=== PATIENT | female | born 1955 | race African-American/Black ===

== ENCOUNTER 2016-10-16 10:55 | Inpatient (IN) | payer MEDICAID ==
[2016-10-16 11:09] VITALS: BMI 27.2
[2016-10-16] MEDS ORDERED: CARDIZEM INJ 50 MG VIAL ONE (11:14)
[2016-10-16] MEDS ORDERED: NS 1000 ML 1,000 ML ONE (11:14)
--- NOTE | 2016-10-16 11:15 | DR.GENAD ---
HPI - PCP Primary Care Physician: lacy - HPI Comment HPI Comment: WHILE PATIENT WAS WASHING HER CAR, SHE FELT LIKE SHE WAS GOING TO PASS OUT. SHE IS CURRENTLY DIZZY. PATIENT DENIES CHEST PAIN. IN ED, HR RAPID. A FIB ON MONITOR WITH RVR. - Complaint/Symptoms Chief Complaint Doctors Comments: DIZZINESS AND NEAR SYNCOPAL EPISODE. Chief Complaint:: patient stated she was washing her car this morning and got to hot - Nurses notes reviewed Nurses Notes Review: Yes - Source History Provided: Patient - Mode of Arrival Mode of Arrival: Ambulatory - Timing Onset of Chief Complaint: 10/16/16 Came on: Suddenly - Duration Duration: Constant Duration: Minutes - Severity Severity: Moderate PMH - PMH Past Medical History: Yes Past Medical History: Arthritis, Diabetes, Hypertension Past Surgical History: No - Family History History of Family Medical Conditions: Yes Family Medical History: Diabetes Mellitus, Hypertension - Social History Does patient currently use any type of tobacco product: No Have you used tobacco products in the last 12 months: No Type of Tobacco Use: None Does any household member use tobacco: No Alcohol Use: None Do you use any recreational Drugs:: No Lives With: Family Lives Where: Home - infectious screening In the last 2 months have you had wt loss of >10#?: NO Have you had fever, night sweats or hemotysis?: No Have you traveled outside the country in the last 6 months?: No Isolation: Standard ROS - Review of Systems Constitutional: Weakness, Fatigue. negative: Chills, Fever Eyes: No Symptoms Reported. negative: Eye Pain, Blurred Vision, Discharge ENTM: No Symptoms Reported. negative: Ear Pain, Nose Discharge, Nose Congestion , Throat Pain Respiratoy: Short of Breath. negative: Productive Cough, Non-Productive Cough, Wheezing, Hemoptysis Cardiovascular: Palpitations, Syncope Gastrointestinal/Abdominal: No Symptoms Reported. negative: Abdominal Pain, Diarrhea, Nausea, Vomiting Genitourinary: No Symptoms Reported. negative: Dysuria, Frequency, Hematuria Neurological: Weakness, Dizziness. negative: Headache Musculoskeletal: No Symptoms Reported Integumentary: No Symptoms Reported Hematologic/Lymphatic: No Symptoms Reported Endocrine: No Symptoms Reported All Other Systems: Reviewed and Negative PE - Vital Signs Vitals: Temperature 98.3 F Pulse Rate 154 Respiratory Rate 18 Blood Pressure [Left Arm] 196/101 Blood Pressure 125/67 O2 Sat by Pulse Oximetry 100 - General Limitations: No Limitations General Appearance: Alert - Head Head Exam: Normal Inspection - Eyes Eye exam: Normal Appearance - ENT ENT Exam: Normal External Ear Exam External Ear Exam: Normal External Inspection TM/Canal Exam: Bilateral Normal Nose Exam: Normal Nose Exam Mouth Exam: Normal Inspection Throat Exam: Normal Inspection - Neck Neck Exam: Trachea Midline. negative: Tenderness, Meningismus, Lymphadenopathy - Chest Chest Inspection: Symmetric Chest Wall Rise - Respiratory Respiratory Exam: Normal Lung Sounds Bilat Respiratory Exam: Bilateral Clear to Auscultation - Cardiovascular Cardiovascular Exam: Tachycardia, Irregular Rhythm - Abdominal Exam Abdominal Exam: Normal Bowel Sounds, Soft. negative: Tenderness - Extremities Extremities Exam: Normal Inspection - Back Back Exam: Normal Inspection - Neurologic Neurological Exam: Alert, Oriented X3, CN II-XII Intact, Reflexes Normal. negative: Motor Sensory Deficit - Psychiatric Psychiatric Exam: Anxious - Skin Skin Exam: Normal Color MDM - Differential Diagnosis Differential Diagnosis: A FIB, IN, DM/HYPOGLYCEMIA Course - Treatment Treatment: SEE ORDERS. IV BOLUS CARDIOZEM FOLLOW WITH IV DRIP. - Reevaluation 1st: Improved (HR IMPROVE. SINUS TACHYCARDIA.) - Consultation Consultation Comments: DISCUSS PATIENT WITH DR. LEAL. HE WILL ADMIT PATIENT. - Education/Counseling Education/Counseling: Patient, Education Educated On: Treatment, Diagnosis ROR - Labs Reviewed Laboratory Results Reviewed?: Yes Result Diagrams: 10/16/16 11:33 10/16/16 11:33 - XRAY XRAY Interpreted by: Radiologist XRAY Findings: REPORT DISCUSS WITH PATIENT. - EKG Rhythm: Afib (WITH RVR. NOTED ON EKG.) - Diagnosis Discharge Problem: Atrial fibrillation with rapid ventricular response, New onset a-fib, Dizziness - Discharge Plan Disposition: 01 HOME, SELF-CARE Condition: Stable - Follow ups/Referrals - Instructions
[2016-10-16] MEDS ORDERED: NS 100 ML IV 100 ML IV ONE (11:21)
[2016-10-16] MEDS ORDERED: CARDIZEM INJ 125 MG VIAL ONE (11:22)
[2016-10-16] MEDS ORDERED: CARDIZEM INJ 50 MG VIAL IVP ONE (11:34)
[2016-10-16] MEDS ORDERED: CARDIZEM INJ 125 MG VIAL 125 MG in NS 100 ML IV 100 ML IV PRN (11:34)
[2016-10-16 11:54] LABS: BASOPHILS % (AUTO) 0.9 % (0.2-1.0); EOSINOPHILS # (AUTO) 0.1 x10^3/uL (0.0-0.2); EOSINOPHILS % (AUTO) 2.8 % (0.9-2.9); HEMATOCRIT 32.1 % (36.0-47.0); HEMOGLOBIN 10.4 g/dL (12.0-16.0); LYMPHOCYTES # (AUTO) 1.4 X10^3/uL (1.3-2.9); LYMPHOCYTES % (AUTO) 36.5 % (21.0-51.0); MEAN CORPUSCULAR HEMOGLOBIN 22.7 pg (27.0-34.0); MEAN CORPUSCULAR HGB CONC 32.3 g/dL (33.0-35.0); MEAN CORPUSCULAR VOLUME 70.2 fL (80.0-100.0); MEAN PLATELET VOLUME 7.4 fL (7.4-11.0); MONOCYTES # (AUTO) 0.4 x10^3/uL (0.3-0.8); MONOCYTES % (AUTO) 10.7 % (0.0-13.0); NEUTROPHILS # (AUTO) 1.9 x10^3/uL (2.2-4.8); NEUTROPHILS % (AUTO) 49.1 % (42.0-75.0); PLATELET COUNT 319 X10^3/uL (150.0-450.0); RED BLOOD COUNT 4.57 X10^6/uL (3.5-5.4)
[2016-10-16 12:12] LABS: BLOOD UREA NITROGEN 21 mg/dL (7-18); CALCIUM 9.9 mg/dL (8.5-10.1); CARBON DIOXIDE 25.2 mmol/L (21-32); CHLORIDE 102 mmol/L (98-107); COR NA(FOR HYPERGLY) 144 mmol/L (136-145); CREATININE 1.27 mg/dL (0.55-1.02); GLUCOSE 187 mg/dL (65-99); SODIUM 142 mmol/L (136-145); TROPONIN I < 0.02 ng/mL (0-1.5); eGFR BLACK RACES 55 (>60); eGFR NON BLACK RACES 45 (>60)
[2016-10-16 12:13] LABS: HYPOCHROMASIA SLIGHT; PLATELET MORPHOLOGY COMMENT NORMAL (NORMAL)
[2016-10-16 12:14] LABS: MICROCYTOSIS 2+
[2016-10-16 12:16] LABS: ALANINE AMINOTRANSFERASE 22 Units/L (12-78); ALBUMIN 3.4 g/dL (3.4-5.0); ALKALINE PHOSPHATASE 65 Units/L (46-116); ASPARTATE AMINO TRANSFERASE 22 Units/L (15-37); CKMB % 0.9 % (<4); CREATINE KINASE 170 Units/L (26-192); CREATINE KINASE MB 1.6 ng/mL (0-4.0); TOTAL PROTEIN 7.7 g/dL (6.4-8.2)
[2016-10-16 12:20] LABS: B-TYPE NATRIURETIC PEPTIDE 126 pg/mL (0-79)
--- NOTE | 2016-10-16 12:28 | RAD ---
HISTORY: Chest pain Study: Chest one view Comparison: April 26, 2015 Findings: There is a leftward deviation of the upper trachea and prominence of the right paratracheal soft tis sues. This is likely due to substernal thyroid and is unchanged from the prior examination. The card iac silhouette is unremarkable. The lungs are clear without focal infiltrate or effusion. The bony thorax is unremarkable. IMPRESSION: 1. No acute cardiopulmonary disease. 2. Leftward deviation of the upper trachea likely by an enlarged thyroid gland. This is a stable fin ding. Reported By:
[2016-10-16] MEDS ORDERED: KAYEXALATE PO ONE (13:40)
[2016-10-16] MEDS ORDERED: CORDARONE INJ 150 MG VIAL IVP ONE (15:33)
[2016-10-16] MEDS ORDERED: HEPARIN SODIUM IN D5W 25,000 UNITS/500 ML BAG IV PRN (15:34)
[2016-10-16] MEDS ORDERED: NEXTERONE IV 360 MG PREMIX* 200 ML IV PRN (15:34)
[2016-10-16] MEDS ORDERED: HEPARIN SODIUM INJ 5000 UNITS ONE (15:52)
[2016-10-16] MEDS ORDERED: HEPARIN SODIUM INJ 5000 UNITS IVP ONE (16:09)
[2016-10-16] MEDS: NEXTERONE IV 360 MG PREMIX* 200 ML IV PRN ×2 (16:30→21:47)
[2016-10-16] MEDS ORDERED: NEXTERONE IV 150 MG PREMIX* 100 ML IV SCH (17:00)
[2016-10-16] MEDS: NORCO 10/325 TAB PO SCH ×2 (17:43→21:46)
[2016-10-16 18:05] LABS: CKMB % 0.8 % (<4); CREATINE KINASE MB 1.3 ng/mL (0-4.0); TROPONIN I 0.12 ng/mL (0-1.5)
[2016-10-16] MEDS ORDERED: GLUCOPHAGE ONE (20:45)
[2016-10-16] MEDS: HumuLIN R SUBCUT PRN (20:57)
[2016-10-16] MEDS: GLUCOPHAGE PO SCH (20:57)
[2016-10-16] MEDS: FIORICET TAB PO PRN (20:57)
[2016-10-16] MEDS: SNACK - Diabetic Appropriate PO SCH (20:59)
[2016-10-16] MEDS: CARDIZEM SR 60 MG PO SCH (21:46)
[2016-10-16 22:16] LABS: BILIRUBIN,URINE NEGATIVE (NEGATIVE); BLOOD/HEMOGLOBIN,URINE NEGATIVE (NEGATIVE); GLUCOSE, URINE NEGATIVE (NEGATIVE); KETONES,URINE NEGATIVE (NEGATIVE); LEUKOCYTE ESTERASE ,URINE NEGATIVE (NEGATIVE); NITRITES,URINE NEGATIVE (NEGATIVE); PROTEIN,URINE 3+ (NEGATIVE); UROBILINOGEN,URINE NORMAL (NORMAL)
[2016-10-16 22:43] LABS: APPEARANCE,URINE CLEAR (CLEAR); BACTERIA,URINE NEGATIVE /HPF (NEGATIVE); COLOR,URINE YELLOW (YELLOW); RBC,URINE 0-3 /HPF (NEGATIVE); SQUAMOUS EPITHELIAL CELL,UR RARE /HPF (NEGATIVE)
[2016-10-17 00:22] LABS: CKMB % 0.9 % (<4); CREATINE KINASE MB 1.2 ng/mL (0-4.0); TROPONIN I 0.16 ng/mL (0-1.5)
[2016-10-17] MEDS ORDERED: HEPARIN SODIUM INJ 5000 UNITS IVP ONE (01:40)
[2016-10-17] MEDS: CARDIZEM SR 60 MG PO SCH ×3 (05:43→23:56)
[2016-10-17 06:57] LABS: ALANINE AMINOTRANSFERASE 20 Units/L (12-78); ALBUMIN 2.9 g/dL (3.4-5.0); ALKALINE PHOSPHATASE 58 Units/L (46-116); ASPARTATE AMINO TRANSFERASE 17 Units/L (15-37); BLOOD UREA NITROGEN 13 mg/dL (7-18); CALCIUM 9.3 mg/dL (8.5-10.1); CARBON DIOXIDE 28.8 mmol/L (21-32); CHLORIDE 104 mmol/L (98-107); COR CA(FOR HYPOALB) 10.2 mg/dL (8.5-10.1); COR NA(FOR HYPERGLY) 144 mmol/L (136-145); CREATININE 0.79 mg/dL (0.55-1.02); GLUCOSE 142 mg/dL (65-99); SODIUM 143 mmol/L (136-145); eGFR BLACK RACES > 60 (>60); eGFR NON BLACK RACES > 60 (>60)
[2016-10-17] MEDS ORDERED: GLUCOTROL PO SCH (07:00)
[2016-10-17 07:06] LABS: BASOPHILS % (AUTO) 1.1 % (0.2-1.0); EOSINOPHILS # (AUTO) 0.1 x10^3/uL (0.0-0.2); EOSINOPHILS % (AUTO) 2.8 % (0.9-2.9); HEMATOCRIT 31.4 % (36.0-47.0); HEMOGLOBIN 10.4 g/dL (12.0-16.0); LYMPHOCYTES # (AUTO) 1.9 X10^3/uL (1.3-2.9); LYMPHOCYTES % (AUTO) 48.3 % (21.0-51.0); MEAN CORPUSCULAR HGB CONC 33.1 g/dL (33.0-35.0); MEAN CORPUSCULAR VOLUME 69.7 fL (80.0-100.0); MEAN PLATELET VOLUME 7.6 fL (7.4-11.0); MONOCYTES # (AUTO) 0.3 x10^3/uL (0.3-0.8); MONOCYTES % (AUTO) 8.4 % (0.0-13.0); NEUTROPHILS # (AUTO) 1.6 x10^3/uL (2.2-4.8); NEUTROPHILS % (AUTO) 39.4 % (42.0-75.0); PLATELET COUNT 322 X10^3/uL (150.0-450.0); RED CELL DISTRIBUTION WIDTH 14.9 % (11.6-16.5)
[2016-10-17 08:02] LABS: HYPOCHROMASIA 1+; MICROCYTOSIS 1+; PLATELET MORPHOLOGY COMMENT NORMAL (NORMAL)
[2016-10-17] MEDS ORDERED: POTASSIUM CHLORIDE LIQ 20 MEQ UDC PO PRN (08:35)
[2016-10-17] MEDS ORDERED: K-RIDER 10 MEQ/NS 100 ML 10 MEQ/100 ML BAG IV PRN (08:35)
[2016-10-17] MEDS ORDERED: K-LYTE EFFERVESCENT PO PRN (08:35)
[2016-10-17] MEDS ORDERED: K-DUR TAB 20 MEQ PO PRN (08:35)
[2016-10-17] MEDS: NORCO 10/325 TAB PO SCH ×5 (08:41→23:55)
[2016-10-17] MEDS ORDERED: GLUCOPHAGE ONE ×2 (08:58→20:02)
[2016-10-17] MEDS: MICRO K EXTEN CAP 10 MEQ PO SCH (08:59)
[2016-10-17] MEDS: LASIX PO SCH (08:59)
[2016-10-17] MEDS: HYDROCHLOROTHIAZIDE 25 MG TAB PO SCH (08:59)
[2016-10-17] MEDS: GLUCOPHAGE PO SCH ×2 (09:00→20:09)
[2016-10-17] MEDS ORDERED: [UNRECOGNIZED DRUG - OTHER] PO SCH (09:00)
[2016-10-17] MEDS: LOPRESSOR TAB 25 MG PO SCH (09:00)
[2016-10-17] MEDS ORDERED: [UNRECOGNIZED DRUG - OTHER] PO SCH (09:00)
[2016-10-17] MEDS ORDERED: NEXTERONE IV 360 MG PREMIX* 200 ML IV ONE (10:02)
[2016-10-17] MEDS: NEXTERONE IV 360 MG PREMIX* 200 ML IV PRN (10:18)
[2016-10-17] MEDS: HumuLIN R SUBCUT PRN ×2 (13:16→17:56)
[2016-10-17] MEDS: SNACK - Diabetic Appropriate PO SCH (20:09)
[2016-10-18] MEDS: CARDIZEM SR 60 MG PO SCH ×2 (05:37→14:00)
[2016-10-18] MEDS: HumuLIN R SUBCUT PRN ×2 (05:40→11:47)
[2016-10-18 05:49] LABS: BASOPHILS % (AUTO) 0.6 % (0.2-1.0); EOSINOPHILS # (AUTO) 0.1 x10^3/uL (0.0-0.2); EOSINOPHILS % (AUTO) 2.6 % (0.9-2.9); HEMATOCRIT 31.9 % (36.0-47.0); HEMOGLOBIN 10.3 g/dL (12.0-16.0); LYMPHOCYTES # (AUTO) 1.7 X10^3/uL (1.3-2.9); LYMPHOCYTES % (AUTO) 35.9 % (21.0-51.0); MEAN CORPUSCULAR HEMOGLOBIN 22.8 pg (27.0-34.0); MEAN CORPUSCULAR HGB CONC 32.2 g/dL (33.0-35.0); MEAN CORPUSCULAR VOLUME 70.6 fL (80.0-100.0); MEAN PLATELET VOLUME 7.2 fL (7.4-11.0); MONOCYTES # (AUTO) 0.5 x10^3/uL (0.3-0.8); MONOCYTES % (AUTO) 10.7 % (0.0-13.0); NEUTROPHILS # (AUTO) 2.3 x10^3/uL (2.2-4.8); NEUTROPHILS % (AUTO) 50.2 % (42.0-75.0); PLATELET COUNT 334 X10^3/uL (150.0-450.0); RED BLOOD COUNT 4.51 X10^6/uL (3.5-5.4); RED CELL DISTRIBUTION WIDTH 15.2 % (11.6-16.5); WHITE BLOOD COUNT 4.6 X10^3/uL (3.6-10.0)
[2016-10-18 06:02] LABS: ALANINE AMINOTRANSFERASE 19 Units/L (12-78); ALBUMIN 2.9 g/dL (3.4-5.0); ALKALINE PHOSPHATASE 59 Units/L (46-116); ASPARTATE AMINO TRANSFERASE 16 Units/L (15-37); BLOOD UREA NITROGEN 13 mg/dL (7-18); CARBON DIOXIDE 29.4 mmol/L (21-32); CHLORIDE 104 mmol/L (98-107); COR CA(FOR HYPOALB) 9.9 mg/dL (8.5-10.1); COR NA(FOR HYPERGLY) 143 mmol/L (136-145); CREATININE 1.03 mg/dL (0.55-1.02); GLUCOSE 141 mg/dL (65-99); SODIUM 142 mmol/L (136-145); TOTAL PROTEIN 7.1 g/dL (6.4-8.2); eGFR BLACK RACES > 60 (>60); eGFR NON BLACK RACES 58 (>60)
[2016-10-18 06:25] LABS: HYPOCHROMASIA 1+; MICROCYTOSIS 1+; PLATELET MORPHOLOGY COMMENT NORMAL (NORMAL)
[2016-10-18] MEDS ORDERED: GLUCOPHAGE ONE (08:13)
[2016-10-18] MEDS: FIORICET TAB PO PRN (08:38)
[2016-10-18] MEDS: LOPRESSOR TAB 25 MG PO SCH (08:39)
[2016-10-18] MEDS: HYDROCHLOROTHIAZIDE 25 MG TAB PO SCH (08:39)
[2016-10-18] MEDS: GLUCOPHAGE PO SCH (08:39)
[2016-10-18] MEDS: LASIX PO SCH (08:39)
[2016-10-18] MEDS: NORCO 10/325 TAB PO SCH ×2 (08:39→13:57)
[2016-10-18] MEDS: MICRO K EXTEN CAP 10 MEQ PO SCH (08:40)
[2016-10-18] MEDS ORDERED: PROCARDIA XL PO ONE ×2 (13:36→13:39)
[2016-10-18] MEDS ORDERED: CORDARONE TAB 200 MG PO ONE (13:37)
[2016-10-18] MEDS ORDERED: CORDARONE TAB 200 MG ONE (13:50)
[2016-10-18 14:34] VITALS: BP 160/90
== END 2016-10-18 14:30 | disposition home or self-care (01) | DRG 310 ==
LOC: ER 11:04 → ICU 13:05
PROVIDERS: ADMIT Internal Medicine; ATTEND Internal Medicine
DX: I48.91 Unspecified atrial fibrillation (principal); R55 Syncope and collapse; R94.31 Abnormal electrocardiogram [ECG] [EKG]; M13.89 Other specified arthritis, multiple sites; R42 Dizziness and giddiness; H53.8 Other visual disturbances; R73.09 Other abnormal glucose; I10 Essential (primary) hypertension; R06.02 Shortness of breath
CPT/HCPCS: 36415; 71010; 80053; 81001; 82550; 82553; 83735; 83880; 84132; 84484; 85025; 85610; 85730; 93005; 93010; 93041; 96365; 96374; 96375; 99231; 99238; 99284; J0282; J1644; J1815; J3490

== ENCOUNTER 2016-12-18 03:22 | Emergency (ER) | payer MEDICAID ==
[2016-12-18 03:31] VITALS: BMI 26.1
[2016-12-18 03:54] LABS: BASOPHILS # (AUTO) 0.1 X10^3/uL (0.0-0.1); EOSINOPHILS # (AUTO) 0.2 x10^3/uL (0.0-0.2); EOSINOPHILS % (AUTO) 4.1 % (0.9-2.9); HEMATOCRIT 31.8 % (36.0-47.0); HEMOGLOBIN 10.4 g/dL (12.0-16.0); LYMPHOCYTES # (AUTO) 1.9 X10^3/uL (1.3-2.9); LYMPHOCYTES % (AUTO) 37.8 % (21.0-51.0); MEAN CORPUSCULAR HEMOGLOBIN 23.3 pg (27.0-34.0); MEAN CORPUSCULAR HGB CONC 32.7 g/dL (33.0-35.0); MEAN CORPUSCULAR VOLUME 71.2 fL (80.0-100.0); MONOCYTES # (AUTO) 0.5 x10^3/uL (0.3-0.8); MONOCYTES % (AUTO) 10.3 % (0.0-13.0); NEUTROPHILS # (AUTO) 2.4 x10^3/uL (2.2-4.8); NEUTROPHILS % (AUTO) 46.8 % (42.0-75.0); PLATELET COUNT 392 X10^3/uL (150.0-450.0); RED BLOOD COUNT 4.47 X10^6/uL (3.5-5.4); RED CELL DISTRIBUTION WIDTH 15.3 % (11.6-16.5); WHITE BLOOD COUNT 5.2 X10^3/uL (3.6-10.0)
[2016-12-18 04:02] LABS: HYPOCHROMASIA 1+; PLATELET MORPHOLOGY COMMENT NORMAL (NORMAL)
[2016-12-18 04:09] LABS: BLOOD UREA NITROGEN 18 mg/dL (7-18); CALCIUM 9.6 mg/dL (8.5-10.1); CARBON DIOXIDE 25.5 mmol/L (21-32); CHLORIDE 100 mmol/L (98-107); COR NA(FOR HYPERGLY) 139 mmol/L (136-145); CREATININE 1.15 mg/dL (0.55-1.02); GLUCOSE 145 mg/dL (65-99); SODIUM 138 mmol/L (136-145); TROPONIN I < 0.02 ng/mL (0-1.5); eGFR BLACK RACES > 60 (>60); eGFR NON BLACK RACES 51 (>60)
--- NOTE | 2016-12-18 04:09 | RAD ---
EXAM: Chest X-ray INDICATION: Hypertension COMPARISION: Prior exam from October 16, 2016 TECHNIQUE: AP, single view FINDINGS: The lungs are clear in the lung volumes are within normal limits. No pleural effusion or pneumothora x. The cardiac silhouette and mediastinum are normal. The regional skeleton is intact. IMPRESSION: Normal Chest X-Ray Reported By:
[2016-12-18 04:13] LABS: ALANINE AMINOTRANSFERASE 18 Units/L (12-78); ALBUMIN 3.9 g/dL (3.4-5.0); ALKALINE PHOSPHATASE 68 Units/L (46-116); ASPARTATE AMINO TRANSFERASE 15 Units/L (15-37); CREATINE KINASE 99 Units/L (26-192); CREATINE KINASE MB < 1.0 ng/mL (0-4.0); TOTAL PROTEIN 8.5 g/dL (6.4-8.2)
[2016-12-18 04:52] VITALS: BP 149/79
[2016-12-18] MEDS ORDERED: ATIVAN TAB 1 MG ONE (05:10)
[2016-12-18] MEDS ORDERED: ATIVAN TAB 1 MG PO PRN (05:13)
--- NOTE | 2016-12-18 05:17 | DR.GENAD ---
HPI - PCP Primary Care Physician: JOSH - Complaint/Symptoms Chief Complaint:: FAST HR AND HIGH BP - Source History Provided: Patient - Mode of Arrival Mode of Arrival: Ambulatory - Timing Onset of Chief Complaint: 12/18/16 PMH - PMH Past Medical History: Yes Past Medical History: Arthritis, Diabetes, Hypertension Past Surgical History: No - Family History History of Family Medical Conditions: Yes Family Medical History: Diabetes Mellitus, Hypertension - Social History Does patient currently use any type of tobacco product: No Have you used tobacco products in the last 12 months: No Type of Tobacco Use: None Alcohol Use: None Do you use any recreational Drugs:: No Lives With: Alone Lives Where: Home - infectious screening In the last 2 months have you had wt loss of >10#?: NO Have you had fever, night sweats or hemotysis?: No Have you traveled outside the country in the last 6 months?: No Isolation: Standard PE - Vital Signs Vitals: Temperature 98.3 F Pulse Rate [Right Brachial] 89 Pulse Rate 134 Respiratory Rate 14 Blood Pressure [Left Arm] 149/79 Blood Pressure 187/114 O2 Sat by Pulse Oximetry 100 ROR - Labs Reviewed Result Diagrams: 12/18/16 03:42 12/18/16 03:42 Laboratory: WBC 5.2 X10^3/uL (3.6-10.0) 12/18/16 03:42 RBC 4.47 X10^6/uL (3.5-5.4) 12/18/16 03:42 Hgb 10.4 g/dL (12.0-16.0) L 12/18/16 03:42 Hct 31.8 % (36.0-47.0) L 12/18/16 03:42 MCV 71.2 fL (80.0-100.0) L 12/18/16 03:42 MCH 23.3 pg (27.0-34.0) L 12/18/16 03:42 MCHC 32.7 g/dL (33.0-35.0) L 12/18/16 03:42 RDW 15.3 % (11.6-16.5) 12/18/16 03:42 Plt Count 392 X10^3/uL (150.0-450.0) 12/18/16 03:42 Plt Count Comment Adequate (ADEQUATE) 12/18/16 03:42 MPV 7.0 fL (7.4-11.0) L 12/18/16 03:42 Neut % 46.8 % (42.0-75.0) 12/18/16 03:42 Lymph % 37.8 % (21.0-51.0) 12/18/16 03:42 [place] % 10.3 % (0.0-13.0) 12/18/16 03:42 Eos % 4.1 % (0.9-2.9) H 12/18/16 03:42 Baso % 1.0 % (0.2-1.0) 12/18/16 03:42 Neut # 2.4 x10^3/uL (2.2-4.8) 12/18/16 03:42 Lymph # 1.9 X10^3/uL (1.3-2.9) 12/18/16 03:42 [place] # 0.5 x10^3/uL (0.3-0.8) 12/18/16 03:42 Eos # 0.2 x10^3/uL (0.0-0.2) 12/18/16 03:42 Baso # 0.1 X10^3/uL (0.0-0.1) 12/18/16 03:42 Absolute Nucleated RBC 0.0 /100WBC 12/18/16 03:42 Plt Morphology Comment Normal (NORMAL) 12/18/16 03:42 RBC Morphology Abnormal (NORMAL) A 12/18/16 03:42 Hypochromasia 1+ A 12/18/16 03:42 INR Target Range - 12/18/16 03:42 INR 0.92 (0.8-1.3) 12/18/16 03:42 PTT 29.4 SECONDS (22.9-36.5) 12/18/16 03:42 PTT Comment - 12/18/16 03:42 Sodium 138 mmol/L (136-145) 12/18/16 03:42 Corrected Sodium 139 mmol/L (136-145) 12/18/16 03:42 Potassium 3.6 mmol/L (3.5-5.1) 12/18/16 03:42 Chloride 100 mmol/L (98-107) 12/18/16 03:42 Carbon Dioxide 25.5 mmol/L (21-32) 12/18/16 03:42 BUN 18 mg/dL (7-18) 12/18/16 03:42 Creatinine 1.15 mg/dL (0.55-1.02) H 12/18/16 03:42 Est GFR (MDRD) Af Amer > 60 (>60) 12/18/16 03:42 Est GFR (MDRD) Non-Af 51 (>60) L 12/18/16 03:42 Glucose 145 mg/dL (65-99) H 12/18/16 03:42 Calcium 9.6 mg/dL (8.5-10.1) 12/18/16 03:42 Corrected Calcium TNP 12/18/16 03:42 Total Bilirubin 0.20 mg/dL (0.2-1.0) 12/18/16 03:42 AST 15 Units/L (15-37) 12/18/16 03:42 ALT 18 Units/L (12-78) 12/18/16 03:42 Alkaline Phosphatase 68 Units/L (46-116) 12/18/16 03:42 Creatine Kinase 99 Units/L (26-192) 12/18/16 03:42 CK-MB (CK-2) < 1.0 ng/mL (0-4.0) 12/18/16 03:42 CK/CKMB % Calc 1.0 % (<4) 12/18/16 03:42 Troponin I < 0.02 ng/mL (0-1.5) 12/18/16 03:42 Total Protein 8.5 g/dL (6.4-8.2) H 12/18/16 03:42 Albumin 3.9 g/dL (3.4-5.0) 12/18/16 03:42 Globulin 4.6 g/dL (2.5-4.5) H 12/18/16 03:42 Albumin/Globulin Ratio 0.8 Ratio (1.1-2.1) L 12/18/16 03:42 - Diagnosis Discharge Problem: Panic attack, Anxiety about health - Discharge Plan Disposition: 01 HOME, SELF-CARE Condition: Stable - Follow ups/Referrals Follow ups/Referrals: Olegario Munoz [Primary Care Provider] - 3 days - Instructions
[2016-12-18] MEDS ORDERED: ATIVAN TAB 1 MG PO ONE (05:23)
== END 2016-12-18 05:25 | disposition home or self-care (01) ==
LOC: ER 03:22
DX: F41.0 Panic disorder [episodic paroxysmal anxiety] (principal); F41.8 Other specified anxiety disorders
CPT/HCPCS: 36415; 71010; 80053; 82550; 82553; 84484; 85025; 85610; 85730; 93005; 96365; 99283; A4222

== ENCOUNTER 2016-12-30 00:23 | Emergency (ER) | payer MEDICAID ==
[2016-12-30 00:39] VITALS: BMI 27.1
--- NOTE | 2016-12-30 00:45 | DR.GENAD ---
HPI - PCP Primary Care Physician: JOSH - Complaint/Symptoms Chief Complaint Doctors Comments: Patient admits to belching s/p vomiting. She saw her primary care physician earlier today for her routine check up and medication refill.. She denies fever or diarrhea. Admits to being nauseated. Patient states that she took hydrocodone at 1700 today and at 2200 tonight. Chief Complaint:: CHEST PAIN- MID-STERNAL; NAUSEA AND VOMITING; FEELS FAINT Self Treatment fo Chief Complaint: TOOK HYDROCODONE AND BLOOD PRESSURE PILL AT HOME. - Source History Provided: Patient - Mode of Arrival Mode of Arrival: Ambulatory - Timing Onset of Chief Complaint: 12/30/16 PMH - PMH Past Medical History: Yes Past Medical History: Arthritis, Diabetes, Hypertension Past Medical History Comment: Atrial Fib Past Surgical History: No - Family History History of Family Medical Conditions: Yes Family Medical History: Diabetes Mellitus, Hypertension - Social History Type of Tobacco Use: Cigarettes Alcohol Use: None Do you use any recreational Drugs:: No Lives With: Family Lives Where: Home - infectious screening In the last 2 months have you had wt loss of >10#?: NO Have you had fever, night sweats or hemotysis?: No Have you traveled outside the country in the last 6 months?: No Isolation: Standard ROS - Review of Systems Eyes: No Symptoms Reported ENTM: No Symptoms Reported Respiratoy: No Symptoms Reported Cardiovascular: No Symptoms Reported Gastrointestinal/Abdominal: Nausea Genitourinary: No Symptoms Reported Neurological: No Symptoms Reported Musculoskeletal: No Symptoms Reported Integumentary: No Symptoms Reported Hematologic/Lymphatic: No Symptoms Reported Endocrine: No Symptoms Reported Psychiatric: No Symptoms Reported All Other Systems: Reviewed and Negative PE - Vital Signs Vitals: Temperature 97.9 F Pulse Rate [] 80 Pulse Rate 96 Respiratory Rate 18 Blood Pressure [Left Arm] 178/92 Blood Pressure 182/99 O2 Sat by Pulse Oximetry 98 - General Limitations: No Limitations General Appearance: Alert, In No Apparent Distress - Head Head Exam: Normal Inspection, Atraumatic - Eyes Eye exam: Normal Appearance, PERRL, EOMI - ENT ENT Exam: Normal Exam External Ear Exam: Normal External Inspection TM/Canal Exam: Bilateral Normal Nose Exam: Normal Nose Exam Mouth Exam: Normal Inspection Throat Exam: Normal Inspection - Neck Neck Exam: Normal Inspection, Full ROM, Trachea Midline - Chest Chest Inspection: Normal Inspection - Respiratory Respiratory Exam: Normal Lung Sounds Bilat Respiratory Exam: Bilateral Clear to Auscultation - Cardiovascular Cardiovascular Exam: Regular Rate, Normal Rhythm - Abdominal Exam Abdominal Exam: Normal Inspection, Normal Bowel Sounds Abdominal Tenderness: negative: RUQ, RLQ, LUQ, LLQ, Epigastrium, Suprapubic, Diffuse, Mild, Moderate, Severe, Other - Extremities Extremities Exam: Normal Inspection - Back Back Exam: Normal Inspection, Full ROM - Neurologic Neurological Exam: Alert, Oriented X3, CN II-XII Intact - Psychiatric Psychiatric Exam: Normal Affect, Normal Mood ROR - Labs Reviewed Result Diagrams: 12/30/16 01:00 12/30/16 01:00 Laboratory: WBC 4.6 X10^3/uL (3.6-10.0) 12/30/16 01:00 RBC 3.76 X10^6/uL (3.5-5.4) 12/30/16 01:00 Hgb 8.8 g/dL (12.0-16.0) L 12/30/16 01:00 Hct 27.0 % (36.0-47.0) L 12/30/16 01:00 MCV 71.7 fL (80.0-100.0) L 12/30/16 01:00 MCH 23.4 pg (27.0-34.0) L 12/30/16 01:00 MCHC 32.6 g/dL (33.0-35.0) L 12/30/16 01:00 RDW 14.9 % (11.6-16.5) 12/30/16 01:00 Plt Count 349 X10^3/uL (150.0-450.0) 12/30/16 01:00 Plt Count Comment Adequate (ADEQUATE) 12/30/16 01:00 MPV 6.8 fL (7.4-11.0) L 12/30/16 01:00 Neut % 55.2 % (42.0-75.0) 12/30/16 01:00 Lymph % 28.4 % (21.0-51.0) 12/30/16 01:00 [place] % 11.0 % (0.0-13.0) 12/30/16 01:00 Eos % 4.3 % (0.9-2.9) H 12/30/16 01:00 Baso % 1.1 % (0.2-1.0) H 12/30/16 01:00 Neut # 2.5 x10^3/uL (2.2-4.8) 12/30/16 01:00 Lymph # 1.3 X10^3/uL (1.3-2.9) 12/30/16 01:00 [place] # 0.5 x10^3/uL (0.3-0.8) 12/30/16 01:00 Eos # 0.2 x10^3/uL (0.0-0.2) 12/30/16 01:00 Baso # 0.0 X10^3/uL (0.0-0.1) 12/30/16 01:00 Absolute Nucleated RBC 0.1 /100WBC 12/30/16 01:00 Plt Morphology Comment Normal (NORMAL) 12/30/16 01:00 RBC Morphology Abnormal (NORMAL) A 12/30/16 01:00 Hypochromasia 1+ A 12/30/16 01:00 Microcytosis Slight A 12/30/16 01:00 Sodium 139 mmol/L (136-145) 12/30/16 01:00 Corrected Sodium 140 mmol/L (136-145) 12/30/16 01:00 Potassium 3.9 mmol/L (3.5-5.1) 12/30/16 01:00 Chloride 103 mmol/L (98-107) 12/30/16 01:00 Carbon Dioxide 27.3 mmol/L (21-32) 12/30/16 01:00 BUN 18 mg/dL (7-18) 12/30/16 01:00 Creatinine 1.14 mg/dL (0.55-1.02) H 12/30/16 01:00 Est GFR (MDRD) Af Amer > 60 (>60) 12/30/16 01:00 Est GFR (MDRD) Non-Af 52 (>60) L 12/30/16 01:00 Glucose 154 mg/dL (65-99) H 12/30/16 01:00 Calcium 9.1 mg/dL (8.5-10.1) 12/30/16 01:00 Corrected Calcium TNP 12/30/16 01:00 Total Bilirubin 0.10 mg/dL (0.2-1.0) L 12/30/16 01:00 AST 14 Units/L (15-37) L 12/30/16 01:00 ALT 17 Units/L (12-78) 12/30/16 01:00 Alkaline Phosphatase 67 Units/L (46-116) 12/30/16 01:00 Creatine Kinase 147 Units/L (26-192) 12/30/16 01:00 CK-MB (CK-2) < 1.0 ng/mL (0-4.0) 12/30/16 01:00 CK/CKMB % Calc 0.7 % (<4) 12/30/16 01:00 Troponin I < 0.02 ng/mL (0-1.5) 12/30/16 01:00 C-Reactive Protein 1.10 mg/L (0-3.0) 12/30/16 01:00 Total Protein 7.8 g/dL (6.4-8.2) 12/30/16 01:00 Albumin 3.8 g/dL (3.4-5.0) 12/30/16 01:00 Globulin 4.0 g/dL (2.5-4.5) 12/30/16 01:00 Albumin/Globulin Ratio 1.0 Ratio (1.1-2.1) L 12/30/16 01:00 - XRAY XRAY Interpreted by: Radiologist (Chest: no acute problem) - Diagnosis Discharge Problem: Nausea - Discharge Plan Condition: Stable - Follow ups/Referrals Follow ups/Referrals: Olegario Munoz [Primary Care Provider] - 3 days - Instructions
[2016-12-30] MEDS ORDERED: ZOFRAN INJ 4 MG VIAL IVP ONE (00:50)
[2016-12-30] MEDS ORDERED: NS 1000 ML 1,000 ML IV ONE (00:50)
[2016-12-30] MEDS ORDERED: NS 1000 ML 1,000 ML ONE (00:51)
[2016-12-30] MEDS ORDERED: ZOFRAN INJ 4 MG VIAL ONE (00:52)
[2016-12-30 01:11] LABS: BASOPHILS % (AUTO) 1.1 % (0.2-1.0); EOSINOPHILS # (AUTO) 0.2 x10^3/uL (0.0-0.2); EOSINOPHILS % (AUTO) 4.3 % (0.9-2.9); HEMOGLOBIN 8.8 g/dL (12.0-16.0); LYMPHOCYTES # (AUTO) 1.3 X10^3/uL (1.3-2.9); LYMPHOCYTES % (AUTO) 28.4 % (21.0-51.0); MEAN CORPUSCULAR HEMOGLOBIN 23.4 pg (27.0-34.0); MEAN CORPUSCULAR HGB CONC 32.6 g/dL (33.0-35.0); MEAN CORPUSCULAR VOLUME 71.7 fL (80.0-100.0); MEAN PLATELET VOLUME 6.8 fL (7.4-11.0); MONOCYTES # (AUTO) 0.5 x10^3/uL (0.3-0.8); NEUTROPHILS # (AUTO) 2.5 x10^3/uL (2.2-4.8); NEUTROPHILS % (AUTO) 55.2 % (42.0-75.0); PLATELET COUNT 349 X10^3/uL (150.0-450.0); RED BLOOD COUNT 3.76 X10^6/uL (3.5-5.4); RED CELL DISTRIBUTION WIDTH 14.9 % (11.6-16.5); WHITE BLOOD COUNT 4.6 X10^3/uL (3.6-10.0)
--- NOTE | 2016-12-30 01:16 | RAD ---
EXAM: Chest X-ray INDICATION: Cough COMPARISION: Prior exam from December 18, 2016 TECHNIQUE: AP, single view FINDINGS: The lungs are clear in the lung volumes are within normal limits. No pleural effusion or pneumothora x. The cardiac silhouette and mediastinum are normal. The regional skeleton is intact. IMPRESSION: Normal Chest X-Ray Reported By:
[2016-12-30 01:21] LABS: HYPOCHROMASIA 1+; MICROCYTOSIS SLIGHT; PLATELET MORPHOLOGY COMMENT NORMAL (NORMAL)
[2016-12-30 01:24] LABS: BLOOD UREA NITROGEN 18 mg/dL (7-18); CALCIUM 9.1 mg/dL (8.5-10.1); CARBON DIOXIDE 27.3 mmol/L (21-32); CHLORIDE 103 mmol/L (98-107); COR NA(FOR HYPERGLY) 140 mmol/L (136-145); CREATININE 1.14 mg/dL (0.55-1.02); GLUCOSE 154 mg/dL (65-99); SODIUM 139 mmol/L (136-145); TROPONIN I < 0.02 ng/mL (0-1.5); eGFR BLACK RACES > 60 (>60); eGFR NON BLACK RACES 52 (>60)
[2016-12-30 01:27] LABS: ALANINE AMINOTRANSFERASE 17 Units/L (12-78); ALBUMIN 3.8 g/dL (3.4-5.0); ALKALINE PHOSPHATASE 67 Units/L (46-116); ASPARTATE AMINO TRANSFERASE 14 Units/L (15-37); CKMB % 0.7 % (<4); CREATINE KINASE 147 Units/L (26-192); CREATINE KINASE MB < 1.0 ng/mL (0-4.0); TOTAL PROTEIN 7.8 g/dL (6.4-8.2)
[2016-12-30 02:20] VITALS: BP 178/92
== END 2016-12-30 03:03 | disposition home or self-care (01) ==
LOC: ER 00:23
DX: R11.2 Nausea with vomiting, unspecified (principal)
CPT/HCPCS: 36415; 71010; 80053; 82550; 82553; 84484; 85025; 86140; 93005; 96365; 96367; 96374; 99283; A4222; J2405

== ENCOUNTER 2017-01-05 12:58 | Inpatient (IN) | payer MEDICAID ==
[2017-01-05] MEDS ORDERED: NS 1000 ML 1,000 ML ONE (13:05)
[2017-01-05 13:06] VITALS: BMI 25.8
[2017-01-05] MEDS ORDERED: NS 1000 ML 1,000 ML IV ONE (13:15)
--- NOTE | 2017-01-05 13:19 | DR.AMS ---
HPI - Time Seen Time seen: 13:20 - PCP Primary Care Physician: JOSH - Complaint Chief Complaint:: PT. HAD A SYNCOPAL EPISODE PRIOR TO ARRIVAL TO ER. PT. STATES SHE FELT FAINT, HAD A FUNNY FEELING IN HER CHEST, AND BECAME REAL HOT PRIOR TO PASSING OUT. UPON ARRIVAL TO ER, PT. IS DROWSY AND SLUGGISH WITH HER VERBAL RESPONSES BUT RESPONDS APPROPIATELY. PT. STATES "I AM WORE OUT." - Reviewed Nurses Notes Reviewed: Yes - Source History Provided: Patient, EMS - Mode of Arrival Mode of Arrival: EMS - Timing Onset of Chief Complaint: 01/05/17 Came On: Suddenly Symptoms: Improving - Quality Quality: Decreased Alertness (took pain pill) - Severity Severity: Moderate - Context Recent: None History Of: Diabetes - Associated Signs and Symptoms Associated Signs and Symptoms: Slurred Speech - Other History Other History: Hx of syncope past month PMH - PMH Past Medical History: Yes Past Medical History: Arthritis, Diabetes, Hypertension Past Medical History Comment: A-FIB Past Surgical History: No Surgical History: No History - Family History History of Family Medical Conditions: Yes Family Medical History: Diabetes Mellitus, Hypertension - Social History Does patient currently use any type of tobacco product: No Have you used tobacco products in the last 12 months: No Type of Tobacco Use: None Does any household member use tobacco: No Alcohol Use: None Do you use any recreational Drugs:: No Lives With: Family Lives Where: Home - infectious screening In the last 2 months have you had wt loss of >10#?: NO Have you had fever, night sweats or hemotysis?: No Have you traveled outside the country in the last 6 months?: No Isolation: Standard ROS - Review of Systems Constitutional: No Symptoms Reported Eyes: No Symptoms Reported ENTM: No Symptoms Reported Respiratoy: No Symptoms Reported Cardiovascular: Syncope Gastrointestinal/Abdominal: No Symptoms Reported Genitourinary: No Symptoms Reported Neurological: No Symptoms Reported Musculoskeletal: Leg (pain legs) Integumentary: No Symptoms Reported Hematologic/Lymphatic: No Symptoms Reported Endocrine: No Symptoms Reported PE - Vitals Vital Signs: Pulse Pulse Resp BP BP Pulse Ox 01/05/17 14:06 77 16 143/76 97 01/05/17 13:32 72 17 124/65 100 01/05/17 13:15 66 17 89/54 100 01/05/17 12:59 59 L 20 90/52 100 12/30/16 02:19 178/92 178/92 - General Limitations: Other (sleepy / lethargy) General Appearance: Lethargic - Head Head Exam: Normal Inspection - Eyes Eye exam: Normal Appearance, EOMI. negative: Scleral Icterus, Conjunctival Injection Pupils: Regular, Round: Bilateral - ENT ENT Exam: Normal Exam, Normal Oropharynx External Ear Exam: Normal External Inspection - Neck Neck Exam: Normal Inspection, Trachea Midline - Chest Chest Inspection: Tenderness (palpation) - Respiratory Respiratory Exam: Normal Lung Sounds Bilat. negative: Accessory Muscle Use, Respiratory Distress Respiratory Exam: Bilateral Clear to Auscultation - Cardiovascular Cardiovascular Exam: Bradycardia - Abdominal Exam Abdominal Exam: Normal Inspection - Extremities Extremities Exam: Normal Inspection, Full ROM - Back Back Exam: Normal Inspection - Neurological Neurological Exam: Oriented X3, CN II-XII Intact Patient Oriented To: Person, Place, Time Speech: Other (slurred) - Psychological Psychiatric Exam: Flat Affect - Skin Skin Exam: Intact, Normal Color Course - Consultation Called: 14:45 Call Returned: 15:00 Consultation Comments: case discussed give IVF and repeat Hg/HCT every 6 hours ROR - Labs Reviewed Result Diagrams: 01/05/17 13:40 01/05/17 13:40 Laboratory: WBC 7.7 X10^3/uL (3.6-10.0) 01/05/17 13:40 RBC 3.53 X10^6/uL (3.5-5.4) 01/05/17 13:40 Hgb 8.4 g/dL (12.0-16.0) L 01/05/17 13:40 Hct 25.2 % (36.0-47.0) L 01/05/17 13:40 MCV 71.5 fL (80.0-100.0) L 01/05/17 13:40 MCH 23.9 pg (27.0-34.0) L 01/05/17 13:40 MCHC 33.4 g/dL (33.0-35.0) 01/05/17 13:40 RDW 15.1 % (11.6-16.5) 01/05/17 13:40 Plt Count 334 X10^3/uL (150.0-450.0) 01/05/17 13:40 Plt Count Comment Adequate (ADEQUATE) 01/05/17 13:40 MPV 6.5 fL (7.4-11.0) L 01/05/17 13:40 Neut % 72.8 % (42.0-75.0) 01/05/17 13:40 Lymph % 18.2 % (21.0-51.0) L 01/05/17 13:40 [place] % 6.8 % (0.0-13.0) 01/05/17 13:40 Eos % 1.2 % (0.9-2.9) 01/05/17 13:40 Baso % 1.0 % (0.2-1.0) 01/05/17 13:40 Neut # 5.6 x10^3/uL (2.2-4.8) H 01/05/17 13:40 Lymph # 1.4 X10^3/uL (1.3-2.9) 01/05/17 13:40 [place] # 0.5 x10^3/uL (0.3-0.8) 01/05/17 13:40 Eos # 0.1 x10^3/uL (0.0-0.2) 01/05/17 13:40 Baso # 0.1 X10^3/uL (0.0-0.1) 01/05/17 13:40 Absolute Nucleated RBC 0.0 /100WBC 01/05/17 13:40 Plt Morphology Comment Normal (NORMAL) 01/05/17 13:40 RBC Morphology Abnormal (NORMAL) A 01/05/17 13:40 Hypochromasia Slight A 01/05/17 13:40 Microcytosis Slight A 01/05/17 13:40 Sodium 139 mmol/L (136-145) 01/05/17 13:40 Corrected Sodium 142 mmol/L (136-145) 01/05/17 13:40 Potassium 3.4 mmol/L (3.5-5.1) L 01/05/17 13:40 Chloride 101 mmol/L (98-107) 01/05/17 13:40 Carbon Dioxide 30.0 mmol/L (21-32) 01/05/17 13:40 BUN 13 mg/dL (7-18) 01/05/17 13:40 Creatinine 1.11 mg/dL (0.55-1.02) H 01/05/17 13:40 Est GFR (MDRD) Af Amer > 60 (>60) 01/05/17 13:40 Est GFR (MDRD) Non-Af 53 (>60) L 01/05/17 13:40 Glucose 224 mg/dL (65-99) H 01/05/17 13:40 Calcium 8.5 mg/dL (8.5-10.1) 01/05/17 13:40 Corrected Calcium TNP 01/05/17 13:40 Total Bilirubin 0.20 mg/dL (0.2-1.0) 01/05/17 13:40 AST 15 Units/L (15-37) 01/05/17 13:40 ALT 19 Units/L (12-78) 01/05/17 13:40 Alkaline Phosphatase 61 Units/L (46-116) 01/05/17 13:40 Creatine Kinase 83 Units/L (26-192) 01/05/17 13:40 CK-MB (CK-2) < 1.0 ng/mL (0-4.0) 01/05/17 13:40 CK/CKMB % Calc 1.2 % (<4) 01/05/17 13:40 Troponin I < 0.02 ng/mL (0-1.5) 01/05/17 13:40 Total Protein 7.2 g/dL (6.4-8.2) 01/05/17 13:40 Albumin 3.4 g/dL (3.4-5.0) 01/05/17 13:40 Globulin 3.8 g/dL (2.5-4.5) 01/05/17 13:40 Albumin/Globulin Ratio 0.9 Ratio (1.1-2.1) L 01/05/17 13:40 - XRAY XRAY Interpreted by: Radiologist XRAY Findings: chest: no acute disease - EKG Rate: 57 Ord: Normal Rhythm: SB Block: 1 Hypertrophy: None ST: Nonsp - Diagnosis Discharge Problem: Syncope Qualifiers: Syncope type: unspecified Qualified Code(s): R55 - Syncope and collapse Anemia Qualifiers: Anemia type: iron deficiency Iron deficiency anemia type: unspecified iron deficiency Qualified Code(s): D50.9 - Iron deficiency anemia, unspecified - Discharge Plan Condition: Stable - Follow ups/Referrals Follow ups/Referrals: Olegario Munoz [Primary Care Provider] - 3 days - Instructions
[2017-01-05] MEDS ORDERED: NARCAN INJ IVP ONE (13:23)
[2017-01-05] MEDS ORDERED: NS 500 ML IV 1,000 ML IV ONE (13:24)
[2017-01-05] MEDS ORDERED: NARCAN INJ ONE (13:26)
[2017-01-05 13:44] LABS: BASOPHILS # (AUTO) 0.1 X10^3/uL (0.0-0.1); EOSINOPHILS # (AUTO) 0.1 x10^3/uL (0.0-0.2); EOSINOPHILS % (AUTO) 1.2 % (0.9-2.9); HEMATOCRIT 25.2 % (36.0-47.0); HEMOGLOBIN 8.4 g/dL (12.0-16.0); LYMPHOCYTES # (AUTO) 1.4 X10^3/uL (1.3-2.9); LYMPHOCYTES % (AUTO) 18.2 % (21.0-51.0); MEAN CORPUSCULAR HEMOGLOBIN 23.9 pg (27.0-34.0); MEAN CORPUSCULAR HGB CONC 33.4 g/dL (33.0-35.0); MEAN CORPUSCULAR VOLUME 71.5 fL (80.0-100.0); MEAN PLATELET VOLUME 6.5 fL (7.4-11.0); MONOCYTES # (AUTO) 0.5 x10^3/uL (0.3-0.8); MONOCYTES % (AUTO) 6.8 % (0.0-13.0); NEUTROPHILS # (AUTO) 5.6 x10^3/uL (2.2-4.8); NEUTROPHILS % (AUTO) 72.8 % (42.0-75.0); PLATELET COUNT 334 X10^3/uL (150.0-450.0); RED BLOOD COUNT 3.53 X10^6/uL (3.5-5.4); RED CELL DISTRIBUTION WIDTH 15.1 % (11.6-16.5); WHITE BLOOD COUNT 7.7 X10^3/uL (3.6-10.0)
--- NOTE | 2017-01-05 13:47 | RAD ---
HISTORY: Syncope. Study: Portable chest. Comparison: Chest x-ray dated December 30, 2016. Findings: The trachea is midline. The cardiac silhouette is unremarkable. The lungs are clear without focal infiltrate or effusion. The bony thorax is unremarkable. IMPRESSION: 1. No acute cardiopulmonary disease. Reported By:
[2017-01-05 14:10] LABS: BLOOD UREA NITROGEN 13 mg/dL (7-18); CALCIUM 8.5 mg/dL (8.5-10.1); CHLORIDE 101 mmol/L (98-107); COR NA(FOR HYPERGLY) 142 mmol/L (136-145); CREATININE 1.11 mg/dL (0.55-1.02); GLUCOSE 224 mg/dL (65-99); SODIUM 139 mmol/L (136-145); TROPONIN I < 0.02 ng/mL (0-1.5); eGFR BLACK RACES > 60 (>60); eGFR NON BLACK RACES 53 (>60)
[2017-01-05 14:12] LABS: HYPOCHROMASIA SLIGHT; MICROCYTOSIS SLIGHT; PLATELET MORPHOLOGY COMMENT NORMAL (NORMAL)
[2017-01-05 14:15] LABS: ALANINE AMINOTRANSFERASE 19 Units/L (12-78); ALBUMIN 3.4 g/dL (3.4-5.0); ALKALINE PHOSPHATASE 61 Units/L (46-116); ASPARTATE AMINO TRANSFERASE 15 Units/L (15-37); CKMB % 1.2 % (<4); CREATINE KINASE 83 Units/L (26-192); CREATINE KINASE MB < 1.0 ng/mL (0-4.0); TOTAL PROTEIN 7.2 g/dL (6.4-8.2)
--- NOTE | 2017-01-05 14:46 | CT ---
STUDY: CT HEAD WITHOUT CONTRAST HISTORY: Syncope. Fall. COMPARISON: Head CT from April 26, 2015. TECHNIQUE: Multiple axial images of the head were obtained from the skull base to the vertex without administration of IV contrast. Automated exposure control (AEC) was utilized to adjust the MA and/o r kV. Findings: There is image degradation due to patient motion. The sulci, cisterns and ventricles are prominent consistent with diffuse volume loss. There are conf luent and scattered foci of low attenuation in the periventricular and subcortical white matter of b oth hemispheres. This is a nonspecific finding which likely represents microangiopathic change in a patient of this age. There is no evidence of acute territorial infarction, hemorrhage, mass, mass effect or midline shift . There are no abnormal extra-axial fluid collections. There is no evidence of acute osseous abnorma lity or significant soft tissue swelling. IMPRESSION: 1. No evidence of acute intracranial abnormality. 2. Nonspecific white matter change and volume loss as described. 3. If there remains strong clinical concern for acute intracranial abnormality, then an MRI examinat ion should be considered for further evaluation. Reported By:
[2017-01-05] MEDS ORDERED: K-DUR TAB 20 MEQ PO ONE ×2 (15:00→15:41)
[2017-01-05] MEDS: NORCO 5/325 MG TAB PO PRN (20:40)
[2017-01-05] MEDS: K-DUR TAB 20 MEQ PO SCH (20:40)
[2017-01-05] MEDS: HumuLIN R SUBCUT PRN (21:12)
[2017-01-05 21:39] LABS: HEMATOCRIT 27.9 % (36.0-47.0); HEMOGLOBIN 9.2 g/dL (12.0-16.0)
[2017-01-06 02:31] LABS: BASOPHILS % (AUTO) 0.9 % (0.2-1.0); EOSINOPHILS % (AUTO) 0.8 % (0.9-2.9); HEMATOCRIT 27.9 % (36.0-47.0); HEMOGLOBIN 9.2 g/dL (12.0-16.0); LYMPHOCYTES # (AUTO) 1.1 X10^3/uL (1.3-2.9); LYMPHOCYTES % (AUTO) 20.2 % (21.0-51.0); MEAN CORPUSCULAR HEMOGLOBIN 23.5 pg (27.0-34.0); MEAN CORPUSCULAR HGB CONC 32.9 g/dL (33.0-35.0); MEAN CORPUSCULAR VOLUME 71.6 fL (80.0-100.0); MEAN PLATELET VOLUME 6.8 fL (7.4-11.0); MONOCYTES # (AUTO) 0.5 x10^3/uL (0.3-0.8); MONOCYTES % (AUTO) 9.8 % (0.0-13.0); NEUTROPHILS # (AUTO) 3.8 x10^3/uL (2.2-4.8); NEUTROPHILS % (AUTO) 68.3 % (42.0-75.0); PLATELET COUNT 344 X10^3/uL (150.0-450.0); RED BLOOD COUNT 3.89 X10^6/uL (3.5-5.4); RED CELL DISTRIBUTION WIDTH 15.3 % (11.6-16.5); WHITE BLOOD COUNT 5.5 X10^3/uL (3.6-10.0)
[2017-01-06 02:36] LABS: HYPOCHROMASIA 1+; MICROCYTOSIS 1+; PLATELET MORPHOLOGY COMMENT NORMAL (NORMAL)
[2017-01-06 02:38] LABS: ALANINE AMINOTRANSFERASE 20 Units/L (12-78); ALBUMIN 3.7 g/dL (3.4-5.0); ALKALINE PHOSPHATASE 66 Units/L (46-116); ASPARTATE AMINO TRANSFERASE 15 Units/L (15-37); BLOOD UREA NITROGEN 12 mg/dL (7-18); CALCIUM 8.8 mg/dL (8.5-10.1); CARBON DIOXIDE 29.9 mmol/L (21-32); CHLORIDE 101 mmol/L (98-107); COR NA(FOR HYPERGLY) 141 mmol/L (136-145); CREATININE 0.98 mg/dL (0.55-1.02); GLUCOSE 169 mg/dL (65-99); SODIUM 139 mmol/L (136-145); TOTAL PROTEIN 7.8 g/dL (6.4-8.2); eGFR BLACK RACES > 60 (>60); eGFR NON BLACK RACES > 60 (>60)
[2017-01-06] MEDS: NORCO 5/325 MG TAB PO PRN ×2 (02:38→08:10)
[2017-01-06] MEDS: HumuLIN R SUBCUT PRN ×3 (05:29→20:46)
[2017-01-06] MEDS: K-DUR TAB 20 MEQ PO SCH ×2 (08:10→20:48)
[2017-01-06] MEDS ORDERED: GLIPIZIDE 5 MG PO SCH (09:30)
[2017-01-06] MEDS ORDERED: PATIENT'S HOME MEDICATION (Potassium Chloride [K-Tab Er] 20 MEQ) PO SCH (09:30)
[2017-01-06] MEDS ORDERED: LEVSIN/MAALOX/LIDOC VISC PO PRN (09:40)
[2017-01-06] MEDS ORDERED: ZESTRIL TAB 10 MG PO SCH (10:00)
[2017-01-06] MEDS ORDERED: GLUCOPHAGE ONE ×2 (10:11→20:37)
[2017-01-06] MEDS: ASPIRIN PO SCH (10:18)
[2017-01-06] MEDS: PROTONIX INJ 40 MG VIAL IVP SCH (10:18)
[2017-01-06] MEDS: LASIX PO SCH (10:19)
[2017-01-06] MEDS: NORCO 10/325 TAB PO SCH ×4 (10:19→21:13)
[2017-01-06] MEDS: LANOXIN PO SCH (10:20)
[2017-01-06] MEDS: GLUCOPHAGE PO SCH ×2 (10:21→20:48)
[2017-01-06] MEDS: PEPCID 20 MG IV PREMIX* 20 MG/50 ML BAG IV SCH ×2 (10:21→21:00)
[2017-01-06] MEDS: CORDARONE TAB 200 MG PO SCH (10:25)
--- NOTE | 2017-01-06 10:37 | RAD ---
HUMERUS RADIOGRAPHS CLINICAL HISTORY: 61-year-old female status post fall with right arm pain. COMPARISON: None. FINDINGS: Frontal and lateral views of the right humerus were obtained. These demonstrate no acute f racture or malalignment. Significant degenerative changes of glenohumeral joint with exostosis abou t the acromion. Elbow joint is congruent. The mineralization is maintained. There is no aggressive bone lesion or abnormal periosteal reaction. There is no radiopaque foreign body, soft tissue calci fication or gas. IMPRESSION: 1. No acute fracture or osseous abnormality demonstrated on right humerus radiographs. 2. Degenerative changes about the shoulder. Reported By:
[2017-01-06 11:03] LABS: CKMB % 0.7 % (<4); CREATINE KINASE 153 Units/L (26-192); CREATINE KINASE MB < 1.0 ng/mL (0-4.0); TROPONIN I < 0.02 ng/mL (0-1.5)
--- NOTE | 2017-01-06 11:49 | DR.H&P ---
H&P - History & Physical for Day of: H&P Date: 01/05/17 - Chief Complaint Chief Complaint: SYNCOPE - Allergies Allergies/Adverse Reactions: Allergies Allergy/AdvReac Type Severity Reaction Status Date / Time Penicillins Allergy Verified 12/30/16 00:27 Sulfa (Sulfonamide Allergy Verified 12/30/16 00:27 Antibiotics) [SULFA] - History of Present Illness History of Present Illness: IS A 61 YEAR OLD PATIENT OF OURS WHO PRESENTED TO THE EMERGENCY ROOM WITH COMPLAINTS OF HAVING A SYNCOPAL EIPSODE PRIOR TO ARRIVING TO ER. PATIENT REPORTED FEELING LIGHTHEADED AND FLUSHED PRIOR TO PASSING OUT. PATIENT'S SISTER REPORTS THAT THIS IS THE THIRD TIME THAT AN EPISODE LIKE THIS HAS OCCURED IN THE PAST MONTH. UPON ARRIVAL TO ER, PATIENT IS DROWSY AND SPEECH IS SLUGGISH, HOWEVER, SHE RESPONDS WITH APPROPRIATE ANSWERS. PATIENT'S SISTER REPORTED THAT SHE HAD RECENTLY TAKEN A PAIN PILL. VITALS ON ARRIVAL ARE 59-20-100%-90/52. CBC WNL EXCEPT HGB 8.4, HCT 25.2. CMP WNL EXCEPT POTASSIUM 3.4, CREATININE 1.11, GLUCOSE 224. CHEST XRAY CLEAR. BRAIN CT REPORTS NO EVIDENCE OF ACUTE INTRACRANIAL ABNORMALITY, NONSPECIFIC WHITE MATTER CHANGE AND VOLUME LOSS. SHE WAS GIVEN A BOLUS OF NS, NARCAN 0.4MG IVP, K-DUR 40MEQ IN ER. WE ADMITTED PATIENT FOR FURTHER TREATMENT AND EVALUATION. WE STARTED HER ON POTASSIUM 20MEQ BID, SLIDING SCALE INSULIN, AND ONE TOUCH BLOOD SUGARS. WE WILL OBTAIN AN ECHO, CAROTID US, MRI BRAIN W/WO CONTRAST, SERIAL EKG AND ENZYMES, DIG LEVEL, AND BLOOD CULTURES. WE WILL START LISINOPRIL 5MG BID, PEPCID 20MG IV BID, PROTONIX 40MG DAILY, AND GI COCKTAIL 15ML QID. WE WILL RECHECK LABS AND FOLLOW UP WITH PATIENT IN AM. - Past Medical History Past Medical History: Arthritis, Diabetes, Hypertension - Past Surgical History Surgical History: No History - Family History Family Medical History: Diabetes Mellitus, Hypertension - Social History Does patient currently use any type of tobacco product: No Have you used tobacco products in the last 12 months: No Type of Tobacco Use: None Does any household member use tobacco: No Alcohol Use: None Drug Use: None - Medications Home Medications: Alprazolam [XANAX 0.25 MG *] 1 tab PO BID PRN 01/05/17 [History Confirmed ] Amiodarone HCl [Amiodarone HCl] 1 tab PO DAILY 01/05/17 [History Confirmed 01/05] Aspirin [ASPIRIN 325 MG *] 1 tab PO DAILY 01/05/17 [History Confirmed 01/05/17] Digoxin [Digox] 1 tab PO DAILY 01/05/17 [History Confirmed 01/05/17] Ropinirole HCl 1 tab PO HS 01/05/17 [History Confirmed 01/05/17] Simvastatin 1 tab PO HS 01/05/17 [History Confirmed 01/05/17] - Review of Systems Constitutional: See HPI, Weakness. denies: No Symptoms Reported, Fever, Chills , Sweats, Malaise, Other Eyes: Vision Change. denies: No Symptoms Reported, See HPI, Pain, Conjunctivae Inflammation, Eyelid Inflammation, Redness, Other ENT: No Symptoms Reported. denies: See HPI, Ear Pain, Ear Discharge, Nose Pain , Nose Discharge, Nose Congestion, Mouth Pain, Mouth Swelling, Throat Pain, Throat Swelling, Other Respiratory: No Symptoms Reported. denies: See HPI, Cough, Dry, Shortness of Breath, Hemoptysis, SOB with Excertion, Pleuritic Pain, Sputum, Wheezing, Other Cardiovascular: No Symptoms Reported. denies: Chest Pain, See HPI, Palpitations , Orthopnea, Paroxysmal Noc. Dyspnea, Edema, Light Headedness, Other Gastrointestinal: No Symptoms Reported. denies: See HPI, Nausea, Vomiting, Abdominal Pain, Diarrhea, Constipation, Melena, Hematochezia, Other Genitourinary: denies: No Symptoms Reported, See HPI, Dysuria, Frequency, Incontinence, Hematuria, Retention, Other Musculoskeletal: Arm Pain. denies: No Symptoms Reported, See HPI, Shoulder Pain , Back Pain, Hand Pain, Leg Pain, Foot Pain, Neck Pain, Other Neurological: See HPI, Weakness. denies: No Symptoms Reported, Numbness, Incoordination, Change in Speech, Confusion, Seizures, Other - Physical Exam Vital Signs: Temperature 100 F Pulse Rate [Apical] 90 Pulse Rate 80 Respiratory Rate 24 Blood Pressure [Left Arm] 155/88 O2 Sat by Pulse Oximetry 98 Oriented: Normal. negative: Time, Person, Place, Not Oriented, Unable to test, Other Eyes: Blurred Vision. negative: Normal, Diplopia, Discharge, Pain, Redness, Photophobia, Other Ear: Normal Nose: Normal. negative: Injected, Discharge, Blood, Other Throat: Normal. negative: Tonsillar Hypertrophy, Red, Exudate, Dry, Other Respiratory: Clear Throughout. negative: Diminished Throughout, Rhonchi Throughout, Rales Throughout, Wheezes Throughout, RUL Clear, RML Clear, RLL Clear, SANTOS Clear, LML Clear, LLL Clear, RUL Diminished, RML Diminished, RLL Diminished, SANTOS Diminished, LML Diminished, LLL Diminished, RUL Absent, RML Absent, RLL Absent, SANTOS Absent, LML Absent, LLL Absent, RUL Rhonchi, RML Rhonchi , RLL Rhonchi, SANTOS Rhonchi, LML Rhonchi, LLL Rhonchi, RUL Insp. Wheeze, RML Insp. Wheeze, RLL Insp. Wheeze, SANTOS Insp.Wheeze, LML Insp.Wheeze, LLL Insp.Wheeze, RUL Exp. Wheeze, RML Exp. Wheeze, RLL Exp. Wheeze, SANTOS Exp. Wheeze , LML Exp. Wheeze, LLL Exp. Wheeze, RUL Rales, RML Rales, RLL Rales, SANTOS Rales, LML Rales, LLL Rales, RUL Rub, RML Rub, RLL Rub, SANTOS Rub, LML Rub, LLL Rub, RUL Squeak, RML Squeak, RLL Squeak, SANTOS Squeak, LML Squeak, LLL Squeak Cardiovascular: Normal. negative: Tachycardia, Bradycardia, Irregular, S3, S4, Systolic, Diastolic, Murmur, Edema, Other : Normal. negative: Dysuria, Hematuria, Frequency, Discharge, Testicular Pain , Bleeding, , Other Auscultation: Bowel Sounds: Normal. negative: Bruit, Absent, Increased, Decreased, High Pitched, Other Palpation: Normal. negative: Spleen Enlarged, Liver Enlarged, Mass Pulsatile, Other Tenderness: Normal. negative: Diffuse, RUQ, RLQ, LUQ, LLQ, Epigastric, Periumbilical, Suprapubic, Mild, Moderate, Severe, Rebound, Guarding, Rigidity, Other Skin: Normal. negative: Decreased Turgur, Rash, Papular, Macular, Maculopapular , Vesicular, Pustular, Petechial, Red, Tender, Hot, Diaphoresis, Wound, Bruising , Ecchymosis, Other Musculoskeletal: Normal. negative: Right, Left, Shoulder, Clavicle, Arm, Elbow , Forearm, Wrist, Hand, Hip, Thigh, Knee, Leg, Ankle, Foot, Back:Thoracic, Back: Lumbar, Back:Midline, Back:Paraspinous, Pelvis, Swelling, Tender, Deformity, Pulse Deficit, Motor Deficit, Sensory Deficit, Instability, Crepitance Psychiatric: Normal. negative: Anxiety, Depression, Agitation, Other Mood Description: Calm. negative: Angry, Apathetic, Depressed, Fearful, Flat, Happy, Hostile, Sad, Suspicious, Withdrawn, Anxious, Appropriate, Labile Affect: Normal. negative: Angry, Anxious, Depressed, Flat, Hysterical, Quiet, Violent Speech Pattern: Clear. negative: Appropriate, Unclear, Inappropriate, Delayed, Slurred, Excessive, Aphasic, Artificially Ventilated - Assessment/Plan (1) Syncope Qualifiers: Syncope type: unspecified Encounter type: E Qualified Code(s): R55 - Syncope and collapse Status: Acute Plan: OBTAIN BRAIN MRI/MRA W/WO CONTRAST, CONTINUE TO MONITOR (2) Anemia Qualifiers: Anemia type: iron deficiency Iron deficiency anemia type: unspecified iron deficiency Vitamin B12 deficiency anemia type: V Folate deficiency anemia type: F Bone marrow failure anemia type: B Hemolytic anemia type: H Other causes of anemia: O Chronic kidney disease stage: C Qualified Code(s): D50.9 - Iron deficiency anemia, unspecified Status: Acute Plan: MONITOR LABS AND PATIENT
--- NOTE | 2017-01-06 12:20 | PCM.PROG ---
Progress Note - Progress Note for Day of Date: 01/06/17 - Subjective Subjective: WAS ADMITTED FROM THE ER WITH SYNCOPE AND ANEMIA. SHE IS ALERT AND ORIENTED, SITTING UP IN BED ON MORNING ROUNDS. SHE IS NOTED WITH COMPLAINTS OF WEAKNESS, HEADACHE, CHEST PAIN, AND RIGHT ARM PAIN. PATIENT STATES THAT SHE THINKS SHE MAY HAVE FALLEN ON HER ARM WHEN SHE PASSED OUT. 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 LUNGS CLEAR TO AUSCULTATION. VITALS THIS AM ARE 100.0-90-24-98%-155/88. CBC WNL EXCEPT HGB 9.2 , HCT 27.9. CMP WNL EXCEPT GLUCOSE 169. DIGOXIN 0.47. WE WILL CHECK A RIGHT HUMERAS XRAY AND CONTINUE WITH CURRENT PLAN OF CARE. WE WILL RECHECK LABS AND FOLLOW UP WITH PATIENT IN AM. - Past Medical Family Social History Past Med/Fam/Surg Hx: No changes since H&P Allergies: Allergies Penicillins Allergy (Verified 12/30/16 00:27) Sulfa (Sulfonamide Antibiotics) [SULFA] Allergy (Verified 12/30/16 00:27) - Review of Systems ROS: No change since H&P - Vital Signs and I&O's Vital Signs: Temperature 99.0 F Pulse Rate [Apical] 82 Pulse Rate 80 Respiratory Rate 18 Blood Pressure [Left Arm] 140/92 O2 Sat by Pulse Oximetry 99 Intake and Output: Intake & Output 01/04/17 01/05/17 01/06/17 01/07/17 11:59 11:59 11:59 11:59 Intake Total 460 Balance 460 - Physical Exam Oriented: Normal. negative: Time, Person, Place, Not Oriented, Unable to test, Other Eyes: Blurred Vision. negative: Normal, Diplopia, Discharge, Pain, Redness, Photophobia, Other Ear: Normal Nose: Normal. negative: Injected, Discharge, Blood, Other Throat: Normal. negative: Tonsillar Hypertrophy, Red, Exudate, Dry, Other Respiratory: Normal Cardiovascular: Normal. negative: Tachycardia, Bradycardia, Irregular, S3, S4, Systolic, Diastolic, Murmur, Edema, Other : Normal. negative: Dysuria, Hematuria, Frequency, Discharge, Testicular Pain , Bleeding, , Other Auscultation: Bowel Sounds: Normal. negative: Bruit, Absent, Increased, Decreased, High Pitched, Other Palpation: Normal Tenderness: Normal. negative: Diffuse, RUQ, RLQ, LUQ, LLQ, Epigastric, Periumbilical, Suprapubic, Mild, Moderate, Severe, Rebound, Guarding, Rigidity, Other Skin: Normal. negative: Decreased Turgur, Rash, Papular, Macular, Maculopapular , Vesicular, Pustular, Petechial, Red, Tender, Hot, Diaphoresis, Wound, Bruising , Ecchymosis, Other Musculoskeletal: Normal. negative: Right, Left, Shoulder, Clavicle, Arm, Elbow , Forearm, Wrist, Hand, Hip, Thigh, Knee, Leg, Ankle, Foot, Back:Thoracic, Back: Lumbar, Back:Midline, Back:Paraspinous, Pelvis, Swelling, Tender, Deformity, Pulse Deficit, Motor Deficit, Sensory Deficit, Instability, Crepitance Psychiatric: Normal. negative: Anxiety, Depression, Agitation, Other Mood Description: Calm. negative: Angry, Apathetic, Depressed, Fearful, Flat, Happy, Hostile, Sad, Suspicious, Withdrawn, Anxious, Appropriate, Labile Affect: Normal. negative: Angry, Anxious, Depressed, Flat, Hysterical, Quiet, Violent Speech Pattern: Clear. negative: Appropriate, Unclear, Inappropriate, Delayed, Slurred, Excessive, Aphasic, Artificially Ventilated - Laboratory and Diagnostics Result Diagrams: 01/06/17 02:17 01/06/17 02:17 Labs: Laboratory WBC 5.5 X10^3/uL (3.6-10.0) 01/06/17 02:17 RBC 3.89 X10^6/uL (3.5-5.4) 01/06/17 02:17 Hgb 9.2 g/dL (12.0-16.0) L 01/06/17 02:17 Hct 27.9 % (36.0-47.0) L 01/06/17 02:17 MCV 71.6 fL (80.0-100.0) L 01/06/17 02:17 MCH 23.5 pg (27.0-34.0) L 01/06/17 02:17 MCHC 32.9 g/dL (33.0-35.0) L 01/06/17: RDW 15.3 % (11.6-16.5) 01/06/17 02:17 Plt Count 344 X10^3/uL (150.0-450.0) 01/06/17 02:17 Plt Count Comment Adequate (ADEQUATE) 01/06/17 02:17 MPV 6.8 fL (7.4-11.0) L 01/06/17 02:17 Neut % 68.3 % (42.0-75.0) 01/06/17 02: Lymph % 20.2 % (21.0-51.0) L 01/06/17 02:17 [place] % 9.8 % (0.0-13.0) 01/06/17 02:17 Eos % 0.8 % (0.9-2.9) L 01/06/17 02:17 Baso % 0.9 % (0.2-1.0) 01/06/17 02:17 Neut # 3.8 x10^3/uL (2.2-4.8) 01/06/17 02:17 Lymph # 1.1 X10^3/uL (1.3-2.9) L 01/06/17 02:17 [place] # 0.5 x10^3/uL (0.3-0.8) 01/06/17 02:17 Eos # 0.0 x10^3/uL (0.0-0.2) 01/06/17 02:17 Baso # 0.0 X10^3/uL (0.0-0.1) 01/06/17 02:17 Absolute Nucleated RBC 0.1 /100WBC 01/06/17 02:17 Plt Morphology Comment Normal (NORMAL) 01/06/17 02:17 RBC Morphology Abnormal (NORMAL) A 01/06/17 02:17 Hypochromasia 1+ A 01/06/17 02:17 Microcytosis 1+ A 01/06/17 02:17 Sodium 139 mmol/L (136-145) 01/06/17 02:17 Corrected Sodium 141 mmol/L (136-145) 01/06/17 02:17 Potassium 3.7 mmol/L (3.5-5.1) 01/06/17 02:17 Chloride 101 mmol/L (98-107) 01/06/17 02:17 Carbon Dioxide 29.9 mmol/L (21-32) 01/06/17 02:17 BUN 12 mg/dL (7-18) 01/06/17 02:17 Creatinine 0.98 mg/dL (0.55-1.02) 01/06/17 02:17 Est GFR (MDRD) Af Amer > 60 (>60) 01/06/17 02:17 Est GFR (MDRD) Non-Af > 60 (>60) 01/06/17 02:17 Glucose 169 mg/dL (65-99) H 01/06/17 02:17 Calcium 8.8 mg/dL (8.5-10.1) 01/06/17 02:17 Corrected Calcium TNP 01/06/17 02:17 Total Bilirubin 0.30 mg/dL (0.2-1.0) 01/06/17 02:17 AST 15 Units/L (15-37) 01/06/17 02:17 ALT 20 Units/L (12-78) 01/06/17 02:17 Alkaline Phosphatase 66 Units/L (46-116) 01/06/17 02:17 Creatine Kinase 153 Units/L (26-192) 01/06/17 10:20 CK-MB (CK-2) < 1.0 ng/mL (0-4.0) 01/06/17 10:20 CK/CKMB % Calc 0.7 % (<4) 01/06/17 10:20 Troponin I < 0.02 ng/mL (0-1.5) 01/06/17 10:20 Total Protein 7.8 g/dL (6.4-8.2) 01/06/17 02:17 Albumin 3.7 g/dL (3.4-5.0) 01/06/17 02:17 Globulin 4.1 g/dL (2.5-4.5) 01/06/17 02:17 Albumin/Globulin Ratio 0.9 Ratio (1.1-2.1) L 01/06/17 02:17 Digoxin 0.47 ng/mL (0.9-2) L 01/06/17 10:20 - Plan (1) Syncope Status: Acute Qualifiers: Syncope type: unspecified Encounter type: E Qualified Code(s): R55 - Syncope and collapse Plan: OBTAIN BRAIN MRI/MRA W/WO CONTRAST, CONTINUE TO MONITOR (2) Anemia Status: Acute Qualifiers: Anemia type: iron deficiency Iron deficiency anemia type: unspecified iron deficiency Vitamin B12 deficiency anemia type: V Folate deficiency anemia type: F Bone marrow failure anemia type: B Hemolytic anemia type: H Other causes of anemia: O Chronic kidney disease stage: C Qualified Code(s): D50.9 - Iron deficiency anemia, unspecified Plan: MONITOR LABS AND PATIENT (3) Chest pain Status: Acute Qualifiers: Chest pain type: unspecified Ischemic chest pain type: I Qualified Code(s ): R07.9 - Chest pain, unspecified Plan: CHECK SERIAL EKG AND CARDIAC ENZYMES, CONTINUE TO MONITOR
[2017-01-06] MEDS: LEVSIN/MAALOX/LIDOC VISC PO SCH ×3 (13:40→20:49)
[2017-01-06 13:53] LABS: BILIRUBIN,URINE NEGATIVE (NEGATIVE); BLOOD/HEMOGLOBIN,URINE NEGATIVE (NEGATIVE); GLUCOSE, URINE 1+ (NEGATIVE); KETONES,URINE NEGATIVE (NEGATIVE); LEUKOCYTE ESTERASE ,URINE NEGATIVE (NEGATIVE); NITRITES,URINE NEGATIVE (NEGATIVE); PROTEIN,URINE 3+ (NEGATIVE); UROBILINOGEN,URINE NORMAL (NORMAL)
[2017-01-06 14:02] LABS: APPEARANCE,URINE HAZY (CLEAR); COLOR,URINE YELLOW (YELLOW); RBC,URINE 0-2 /HPF (NEGATIVE)
[2017-01-06 14:03] LABS: BACTERIA,URINE TRACE /HPF (NEGATIVE); SQUAMOUS EPITHELIAL CELL,UR RARE /HPF (NEGATIVE)
--- NOTE | 2017-01-06 17:27 | VAS ---
STUDY: CAROTID DUPLEX DOPPLER EXAMINATION History: Syncope. Comparison: None. Technique: Multiple paredes scale and color flow Doppler images of the right and left carotid arterial system were obtained. The vertebral arterial system was evaluated as well. Findings: Normal color flow Doppler is seen throughout the right and left carotid arterial system. There is mild intimal thickening in the carotid arteries bilaterally. There is no evidence of hemodynamically significant stenosis in the internal carotid arteries on eit her side based on velocity criteria. Vertebral artery flow is antegrade on the left. IMPRESSION: 1. No evidence of hemodynamically significant stenosis in the internal carotid arteries. Reported By:
--- NOTE | 2017-01-06 18:11 | MRI ---
HISTORY: Fainting Study: MRI brain with and without contrast Comparison: 01/05/2017 Technique: Multiplanar multi-sequence MRI of the brain was obtained. Sagittal T1, axial T1, axial T 2, axial flair images, coronal T1, sagittal T1 post contrast, coronal T1 postcontrast, axial T1 post contrast images were obtained. Findings: There is mild increased FLAIR and T2 signal hyperintensity within the periventricular deep white mat ter bilaterally The midline structures appear intact. The posterior fossa is unremarkable. The sulcal markings of the brain are normal in their appearance. Normal paredes-white differentiation is maintained. No evid ence for intraparenchymal hemorrhage or mass can be identified. No extra-axial fluid collections or subarachnoid hematoma can be seen. Evaluation of the diffusion weighted images demonstrates no chester dence for acute ischemic change. The cerebral pontine angle is normal in its contour without eviden ce for mass. The ventricular system appears symmetric and nondilated. There is moderate amount of fluid within the right greater than left mastoid air cells consistent wi th mastoiditis. 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 Postcontrast enhancement demonstrates no evidence for an enhancing lesion such as mass or vascular m alformation. IMPRESSION: 1. No acute intracranial abnormality identified. 2. Bilateral periventricular and deep white matter FLAIR and T2 signal hyperintensity is nonspecific however likely represents sequela of chronic microvascular ischemic disease. 3. Moderate bilateral fluid opacification of the mastoid air cells suggests mastoiditis for which cl inical correlation is needed. Reported By:
[2017-01-06 18:20] LABS: CKMB % 0.6 % (<4); CREATINE KINASE 156 Units/L (26-192); CREATINE KINASE MB < 1.0 ng/mL (0-4.0); TROPONIN I < 0.02 ng/mL (0-1.5)
[2017-01-06] MEDS: SNACK - Diabetic Appropriate PO SCH (20:30)
[2017-01-06] MEDS: GLUCOTROL PO SCH (20:48)
[2017-01-06] MEDS: ZOCOR TAB 20 MG PO SCH (20:48)
[2017-01-07 02:01] LABS: CKMB % 0.7 % (<4); CREATINE KINASE 136 Units/L (26-192); CREATINE KINASE MB < 1.0 ng/mL (0-4.0); TROPONIN I < 0.02 ng/mL (0-1.5)
[2017-01-07] MEDS: NORCO 10/325 TAB PO SCH ×5 (02:35→20:43)
[2017-01-07 06:18] LABS: BASOPHILS % (AUTO) 0.7 % (0.2-1.0); EOSINOPHILS # (AUTO) 0.1 x10^3/uL (0.0-0.2); EOSINOPHILS % (AUTO) 1.4 % (0.9-2.9); HEMATOCRIT 28.3 % (36.0-47.0); HEMOGLOBIN 9.4 g/dL (12.0-16.0); LYMPHOCYTES # (AUTO) 1.3 X10^3/uL (1.3-2.9); LYMPHOCYTES % (AUTO) 27.1 % (21.0-51.0); MEAN CORPUSCULAR HEMOGLOBIN 23.9 pg (27.0-34.0); MEAN CORPUSCULAR HGB CONC 33.2 g/dL (33.0-35.0); MEAN CORPUSCULAR VOLUME 72.1 fL (80.0-100.0); MEAN PLATELET VOLUME 7.1 fL (7.4-11.0); MONOCYTES # (AUTO) 0.6 x10^3/uL (0.3-0.8); MONOCYTES % (AUTO) 11.2 % (0.0-13.0); NEUTROPHILS % (AUTO) 59.6 % (42.0-75.0); PLATELET COUNT 320 X10^3/uL (150.0-450.0); RED BLOOD COUNT 3.93 X10^6/uL (3.5-5.4); RED CELL DISTRIBUTION WIDTH 15.4 % (11.6-16.5)
[2017-01-07 06:44] LABS: ALANINE AMINOTRANSFERASE 20 Units/L (12-78); ALBUMIN 3.5 g/dL (3.4-5.0); ALKALINE PHOSPHATASE 59 Units/L (46-116); ASPARTATE AMINO TRANSFERASE 15 Units/L (15-37); BLOOD UREA NITROGEN 12 mg/dL (7-18); CALCIUM 8.8 mg/dL (8.5-10.1); CARBON DIOXIDE 28.6 mmol/L (21-32); CHLORIDE 102 mmol/L (98-107); COR NA(FOR HYPERGLY) 140 mmol/L (136-145); CREATININE 1.01 mg/dL (0.55-1.02); DIGOXIN 0.63 ng/mL (0.9-2); GLUCOSE 155 mg/dL (65-99); SODIUM 139 mmol/L (136-145); TOTAL PROTEIN 7.6 g/dL (6.4-8.2); eGFR BLACK RACES > 60 (>60); eGFR NON BLACK RACES 59 (>60)
[2017-01-07 07:12] LABS: HYPOCHROMASIA 1+; PLATELET MORPHOLOGY COMMENT NORMAL (NORMAL)
[2017-01-07 07:13] LABS: MICROCYTOSIS SLIGHT
[2017-01-07] MEDS ORDERED: GLUCOPHAGE ONE ×2 (08:15→20:29)
[2017-01-07] MEDS: ASPIRIN PO SCH (08:25)
[2017-01-07] MEDS: K-DUR TAB 20 MEQ PO SCH ×2 (08:25→20:42)
[2017-01-07] MEDS: PROTONIX INJ 40 MG VIAL IVP SCH (08:25)
[2017-01-07] MEDS: GLUCOPHAGE PO SCH ×2 (08:26→20:42)
[2017-01-07] MEDS: GLUCOTROL PO SCH ×2 (08:26→20:43)
[2017-01-07] MEDS: LASIX PO SCH (08:27)
[2017-01-07] MEDS: LANOXIN PO SCH (08:28)
[2017-01-07] MEDS: PEPCID 20 MG IV PREMIX* 20 MG/50 ML BAG IV SCH ×2 (08:29→20:42)
[2017-01-07] MEDS: LEVSIN/MAALOX/LIDOC VISC PO SCH ×4 (08:29→20:41)
[2017-01-07] MEDS: CORDARONE TAB 200 MG PO SCH (08:29)
[2017-01-07] MEDS ORDERED: ZESTRIL TAB 10 MG PO SCH (09:00)
[2017-01-07] MEDS: HEMOCYTE-PLUS PO SCH (11:26)
[2017-01-07] MEDS: LOPRESSOR TAB 25 MG PO SCH ×2 (11:26→20:43)
[2017-01-07] MEDS: PROzac PO SCH (11:33)
--- NOTE | 2017-01-07 11:55 | PCM.PROG ---
Progress Note - Progress Note for Day of Date: 01/07/17 - Subjective Subjective: WAS ADMITTED FROM THE ER WITH SYNCOPE AND ANEMIA. SHE IS ALERT AND ORIENTED, SITTING UP IN BED ON MORNING ROUNDS. SHE CONTINUES WITH COMPLAINTS OF WEAKNESS. SHE ALSO COMPLAINS OF RESTLESS AT NIGHT. 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 LUNGS CLEAR TO AUSCULTATION. VITALS THIS AM ARE 97.6-80-14-95%-175/103. CBC WNL EXCEPT HGB 9.4 , HCT 28.3. CMP WNL EXCEPT GLUCOSE 155. DIGOXIN 0.63. WE OBTAINED XRAY OF RIGHT HUMERUS. IT REPORTED NEGATIVE. ECHO REPORTED EJECTION FRACTION OF 75%. CAROTID US NEGATIVE. BRAIN MRI REPORTED SQUELA OF CHRONIC MICROVASCULAR ISCHEMIC DISEASE AND MODERATE BILATERAL FULID OPACIFICATION OF THE MASTOID AIR CELLS SUGGGESTING MASTOIDITIS. CARDIAC ENZYMES AND EKG WNL.WE WILL START CLONOPIN 0.5MG HS, PROZAC 20MG DAILY, METOPROLOL 25MG BID, HEMOCYTE 1 CAPSULE DAILY, AND CHECK A PELVIC US. WE WILL RECHECK LABS AND FOLLOW UP WITH PATIENT IN AM. - Past Medical Family Social History Past Med/Fam/Surg Hx: No changes since H&P Allergies: Allergies Penicillins Allergy (Verified 12/30/16 00:27) Sulfa (Sulfonamide Antibiotics) [SULFA] Allergy (Verified 12/30/16 00:27) - Review of Systems ROS: No change since H&P - Vital Signs and I&O's Vital Signs: Temperature 98.3 F Pulse Rate [Apical] 109 Pulse Rate 104 Respiratory Rate 26 Blood Pressure [Left Arm] 172/100 O2 Sat by Pulse Oximetry 95 Intake and Output: Intake & Output 01/04/17 01/05/17 01/06/17 01/07/17 11:59 11:59 11:59 11:59 Intake Total 460 928 Output Total 400 Balance 460 528 - Physical Exam Oriented: Normal. negative: Time, Person, Place, Not Oriented, Unable to test, Other Eyes: Blurred Vision. negative: Normal, Diplopia, Discharge, Pain, Redness, Photophobia, Other Ear: Normal Nose: Normal. negative: Injected, Discharge, Blood, Other Throat: Normal. negative: Tonsillar Hypertrophy, Red, Exudate, Dry, Other Respiratory: Normal Cardiovascular: Normal. negative: Tachycardia, Bradycardia, Irregular, S3, S4, Systolic, Diastolic, Murmur, Edema, Other : Normal. negative: Dysuria, Hematuria, Frequency, Discharge, Testicular Pain , Bleeding, , Other Auscultation: Bowel Sounds: Normal. negative: Bruit, Absent, Increased, Decreased, High Pitched, Other Palpation: Normal Tenderness: Normal. negative: Diffuse, RUQ, RLQ, LUQ, LLQ, Epigastric, Periumbilical, Suprapubic, Mild, Moderate, Severe, Rebound, Guarding, Rigidity, Other Skin: Normal. negative: Decreased Turgur, Rash, Papular, Macular, Maculopapular , Vesicular, Pustular, Petechial, Red, Tender, Hot, Diaphoresis, Wound, Bruising , Ecchymosis, Other Musculoskeletal: Normal. negative: Right, Left, Shoulder, Clavicle, Arm, Elbow , Forearm, Wrist, Hand, Hip, Thigh, Knee, Leg, Ankle, Foot, Back:Thoracic, Back: Lumbar, Back:Midline, Back:Paraspinous, Pelvis, Swelling, Tender, Deformity, Pulse Deficit, Motor Deficit, Sensory Deficit, Instability, Crepitance Psychiatric: Normal. negative: Anxiety, Depression, Agitation, Other Mood Description: Calm. negative: Angry, Apathetic, Depressed, Fearful, Flat, Happy, Hostile, Sad, Suspicious, Withdrawn, Anxious, Appropriate, Labile Affect: Normal. negative: Angry, Anxious, Depressed, Flat, Hysterical, Quiet, Violent Speech Pattern: Clear, Appropriate - Laboratory and Diagnostics Result Diagrams: 01/07/17 05:36 01/07/17 05:36 Labs: 01/06/17 10:25 Blood Blood Culture - Preliminary 01/06/17 10:20 Blood Blood Culture - Preliminary Laboratory WBC 5.0 X10^3/uL (3.6-10.0) 01/07/17 05:36 RBC 3.93 X10^6/uL (3.5-5.4) 01/07/17 05:36 Hgb 9.4 g/dL (12.0-16.0) L 01/07/17 05:36 Hct 28.3 % (36.0-47.0) L 01/07/17 05:36 MCV 72.1 fL (80.0-100.0) L 01/07/17 05:36 MCH 23.9 pg (27.0-34.0) L 01/07/17 05:36 MCHC 33.2 g/dL (33.0-35.0) 01/07/17 05:36 RDW 15.4 % (11.6-16.5) 01/07/17 05:36 Plt Count 320 X10^3/uL (150.0-450.0) 01/07/17 05:36 Plt Count Comment Adequate (ADEQUATE) 01/07/17 05:36 MPV 7.1 fL (7.4-11.0) L 01/07/17 05:36 Neut % 59.6 % (42.0-75.0) 01/07/17 05:36 Lymph % 27.1 % (21.0-51.0) 01/07/17 05:36 [place] % 11.2 % (0.0-13.0) 01/07/17 05:36 Eos % 1.4 % (0.9-2.9) 01/07/17 05:36 Baso % 0.7 % (0.2-1.0) 01/07/17 05:36 Neut # 3.0 x10^3/uL (2.2-4.8) 01/07/17 05:36 Lymph # 1.3 X10^3/uL (1.3-2.9) 01/07/17 05:36 [place] # 0.6 x10^3/uL (0.3-0.8) 01/07/17 05:36 Eos # 0.1 x10^3/uL (0.0-0.2) 01/07/17 05:36 Baso # 0.0 X10^3/uL (0.0-0.1) 01/07/17 05:36 Absolute Nucleated RBC 0.1 /100WBC 01/07/17 05:36 Plt Morphology Comment Normal (NORMAL) 01/07/17 05:36 RBC Morphology Abnormal (NORMAL) A 01/07/17 05:36 Hypochromasia 1+ A 01/07/17 05:36 Microcytosis Slight A 01/07/17 05:36 Sodium 139 mmol/L (136-145) 01/07/17 05:36 Corrected Sodium 140 mmol/L (136-145) 01/07/17 05:36 Potassium 4.1 mmol/L (3.5-5.1) 01/07/17 05:36 Chloride 102 mmol/L (98-107) 01/07/17 05:36 Carbon Dioxide 28.6 mmol/L (21-32) 01/07/17 05:36 BUN 12 mg/dL (7-18) 01/07/17 05:36 Creatinine 1.01 mg/dL (0.55-1.02) 01/07/17 05:36 Est GFR (MDRD) Af Amer > 60 (>60) 01/07/17 05:36 Est GFR (MDRD) Non-Af 59 (>60) 01/07/17 05:36 Glucose 155 mg/dL (65-99) H 01/07/17 05:36 Calcium 8.8 mg/dL (8.5-10.1) 01/07/17 05:36 Corrected Calcium TNP 01/07/17 05:36 Total Bilirubin 0.20 mg/dL (0.2-1.0) 01/07/17 05:36 AST 15 Units/L (15-37) 01/07/17 05:36 ALT 20 Units/L (12-78) 01/07/17 05:36 Alkaline Phosphatase 59 Units/L (46-116) 01/07/17 05:36 Creatine Kinase 136 Units/L (26-192) 01/07/17 01:30 CK-MB (CK-2) < 1.0 ng/mL (0-4.0) 01/07/17 01:30 CK/CKMB % Calc 0.7 % (<4) 01/07/17 01:30 Troponin I < 0.02 ng/mL (0-1.5) 01/07/17 01:30 Total Protein 7.6 g/dL (6.4-8.2) 01/07/17 05:36 Albumin 3.5 g/dL (3.4-5.0) 01/07/17 05:36 Globulin 4.1 g/dL (2.5-4.5) 01/07/17 05:36 Albumin/Globulin Ratio 0.9 Ratio (1.1-2.1) L 01/07/17 05:36 Specimen Type Clean catch urine 01/06/17 13:27 Urine Color Yellow (YELLOW) 01/06/17 13:27 Urine Appearance Hazy (CLEAR) 01/06/17 13:27 Urine pH 6.0 (5.0 - 8.0) 01/06/17 13:27 Ur Specific [place] 1.010 (1.000-1.030) 01/06/17 13:27 Urine Protein 3+ (NEGATIVE) 01/06/17 13:27 Urine Glucose (UA) 1+ (NEGATIVE) 01/06/17 13:27 Urine Ketones Negative (NEGATIVE) 01/06/17 13:27 Urine Occult Blood Negative (NEGATIVE) 01/06/17 13:27 Urine Nitrite Negative (NEGATIVE) 01/06/17 13:27 Urine Bilirubin Negative (NEGATIVE) 01/06/17 13:27 Urine Urobilinogen Normal (NORMAL) 01/06/17 13:27 Ur Leukocyte Esterase Negative (NEGATIVE) 01/06/17 13:27 Urine RBC 0-2 /HPF (NEGATIVE) 01/06/17 13:27 Urine WBC 0-2 /HPF (NEGATIVE) 01/06/17 13:27 Ur Squamous Epith Cells Rare /HPF (NEGATIVE) 01/06/17 13:27 Urine Bacteria Trace /HPF (NEGATIVE) 01/06/17 13:27 Ur Culture Indicated? No/not indicated 01/06/17 13:27 Digoxin 0.63 ng/mL (0.9-2) L 01/07/17 05:36 - Plan (1) Syncope Status: Acute Qualifiers: Syncope type: unspecified Encounter type: E Qualified Code(s): R55 - Syncope and collapse Plan: CONTINUE TO MONITOR (2) Anemia Status: Acute Qualifiers: Anemia type: iron deficiency Iron deficiency anemia type: unspecified iron deficiency Vitamin B12 deficiency anemia type: V Folate deficiency anemia type: F Bone marrow failure anemia type: B Hemolytic anemia type: H Other causes of anemia: O Chronic kidney disease stage: C Qualified Code(s): D50.9 - Iron deficiency anemia, unspecified Plan: CHECK PELVIC US, START HEMOCYTE PLUS, MONITOR LABS AND PATIENT (3) Chest pain Status: Acute Qualifiers: Chest pain type: unspecified Ischemic chest pain type: I Qualified Code(s ): R07.9 - Chest pain, unspecified Plan: CONTINUE TO MONITOR (4) Anxiety Status: Acute Plan: START KLONOPIN 0.5MG HS, START PROZAC 20MG DAILY, CONTINUE TO MONITOR (5) Hypertension Status: Chronic Qualifiers: Hypertension type: essential hypertension Qualified Code(s): I10 - Essential (primary) hypertension Plan: START METOPROLOL 25MG BID, CONTINUE LISINOPRIL 5MG BID, CONTINUE TO MONITOR (6) Diabetes mellitus Status: Acute Qualifiers: Diabetes mellitus type: type 2 Diabetes mellitus complication status: with unspecified complications Diabetes mellitus complication detail: D Diabetic retinopathy severity: D Proliferative retinopathy type: P Diabetes mellitus macular edema: D 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
[2017-01-07] MEDS ORDERED: NORMODYNE INJ 20 MG VIAL IVP PRN (14:06)
[2017-01-07] MEDS: NORMODYNE INJ 20 MG VIAL IV PRN ×2 (15:17→17:04)
[2017-01-07] MEDS: HumuLIN R SUBCUT PRN (20:39)
[2017-01-07] MEDS: KLONOPIN TAB 0.5 MG PO SCH (20:42)
[2017-01-07] MEDS: ZESTRIL TAB 10 MG PO SCH (20:42)
[2017-01-07] MEDS: ZOCOR TAB 20 MG PO SCH (20:45)
[2017-01-07] MEDS: SNACK - Diabetic Appropriate PO SCH (20:49)
--- NOTE | 2017-01-07 21:21 | US ---
History: Anemia Exam: Pelvic ultrasound Comparison: None Technique: Multiple grayscale and color flow Doppler images of the pelvis were obtained. Findings: The uterus measures 7.7 x 6.5 x 7.9 cm. The uterus appears heterogeneous and lobular suggesting unde rlying fibroid disease. The endometrial stripe does not visualized. The right ovary measures 2.1 by 1.3 x 1.6 cm with normal flow. The left ovary measures 2.2 x 1.4 x 1 .7 cm with normal flow. No adnexal masses. No significant free fluid. IMPRESSION: 1. Heterogeneous, lobular appearance of the uterus suggesting underlying fibroids. The endometrial stripe is not visualized. 2. Unremarkable appearance of the ovaries. Reported By:
[2017-01-08 05:21] LABS: ALANINE AMINOTRANSFERASE 18 Units/L (12-78); ALBUMIN 3.3 g/dL (3.4-5.0); ALKALINE PHOSPHATASE 55 Units/L (46-116); ASPARTATE AMINO TRANSFERASE 13 Units/L (15-37); BLOOD UREA NITROGEN 15 mg/dL (7-18); CALCIUM 8.8 mg/dL (8.5-10.1); CARBON DIOXIDE 27.5 mmol/L (21-32); CHLORIDE 101 mmol/L (98-107); COR CA(FOR HYPOALB) 9.4 mg/dL (8.5-10.1); COR NA(FOR HYPERGLY) 139 mmol/L (136-145); DIGOXIN 0.74 ng/mL (0.9-2); GLUCOSE 128 mg/dL (65-99); SODIUM 138 mmol/L (136-145); TOTAL PROTEIN 7.4 g/dL (6.4-8.2); eGFR BLACK RACES > 60 (>60); eGFR NON BLACK RACES 54 (>60)
[2017-01-08 06:03] LABS: BASOPHILS # (AUTO) 0.1 X10^3/uL (0.0-0.1); BASOPHILS % (AUTO) 1.1 % (0.2-1.0); EOSINOPHILS # (AUTO) 0.1 x10^3/uL (0.0-0.2); EOSINOPHILS % (AUTO) 2.5 % (0.9-2.9); HEMATOCRIT 28.3 % (36.0-47.0); HEMOGLOBIN 9.4 g/dL (12.0-16.0); LYMPHOCYTES # (AUTO) 1.7 X10^3/uL (1.3-2.9); LYMPHOCYTES % (AUTO) 35.7 % (21.0-51.0); MEAN CORPUSCULAR HEMOGLOBIN 24.1 pg (27.0-34.0); MEAN CORPUSCULAR HGB CONC 33.1 g/dL (33.0-35.0); MEAN CORPUSCULAR VOLUME 72.9 fL (80.0-100.0); MEAN PLATELET VOLUME 7.2 fL (7.4-11.0); MONOCYTES # (AUTO) 0.5 x10^3/uL (0.3-0.8); NEUTROPHILS # (AUTO) 2.3 x10^3/uL (2.2-4.8); NEUTROPHILS % (AUTO) 49.7 % (42.0-75.0); PLATELET COUNT 314 X10^3/uL (150.0-450.0); RED BLOOD COUNT 3.88 X10^6/uL (3.5-5.4); RED CELL DISTRIBUTION WIDTH 15.2 % (11.6-16.5); WHITE BLOOD COUNT 4.6 X10^3/uL (3.6-10.0)
[2017-01-08 06:26] LABS: HYPOCHROMASIA 1+; PLATELET MORPHOLOGY COMMENT NORMAL (NORMAL)
[2017-01-08 06:27] LABS: MICROCYTOSIS SLIGHT
[2017-01-08] MEDS ORDERED: GLUCOPHAGE ONE ×2 (07:12→20:40)
[2017-01-08] MEDS ORDERED: ZOFRAN INJ 4 MG VIAL IVP PRN (07:47)
[2017-01-08] MEDS: LEVSIN/MAALOX/LIDOC VISC PO SCH ×4 (08:02→20:57)
[2017-01-08] MEDS: NORCO 10/325 TAB PO SCH ×4 (08:02→20:57)
[2017-01-08] MEDS: PROzac PO SCH ×2 (08:02→10:20)
[2017-01-08] MEDS: PEPCID 20 MG IV PREMIX* 20 MG/50 ML BAG IV SCH ×2 (08:02→20:48)
[2017-01-08] MEDS: ZESTRIL TAB 10 MG PO SCH (08:03)
[2017-01-08] MEDS: ASPIRIN PO SCH (08:03)
[2017-01-08] MEDS: HEMOCYTE-PLUS PO SCH (08:03)
[2017-01-08] MEDS: CORDARONE TAB 200 MG PO SCH (08:03)
[2017-01-08] MEDS: GLUCOPHAGE PO SCH ×2 (08:03→20:58)
[2017-01-08] MEDS: LASIX PO SCH (08:04)
[2017-01-08] MEDS: LANOXIN PO SCH (08:04)
[2017-01-08] MEDS: GLUCOTROL PO SCH ×2 (08:04→20:58)
[2017-01-08] MEDS: LOPRESSOR TAB 25 MG PO SCH ×2 (08:04→20:58)
[2017-01-08] MEDS: K-DUR TAB 20 MEQ PO SCH ×2 (08:05→20:58)
[2017-01-08] MEDS: PROTONIX INJ 40 MG VIAL IVP SCH (08:05)
--- NOTE | 2017-01-08 10:00 | PCM.PROG ---
Progress Note - Progress Note for Day of Date: 01/08/17 - Subjective Subjective: WAS ADMITTED FROM THE ER WITH SYNCOPE AND ANEMIA. SHE IS ALERT AND ORIENTED, SITTING UP IN BED ON MORNING ROUNDS. SHE IS NOTED WITH COMPLAINTS OF A HEADACHE AND LEG PAIN THIS AM. 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 LUNGS CLEAR TO AUSCULTATION. VITALS THIS AM ARE 99.1-101-19-97%-176/98. CBC WNL EXCEPT HGB 9.4, HCT 28.3. CMP WNL EXCEPT GLUCOSE 128. DIGOXIN 0.74. WE WILL INCREASE PROZAC TO PROZAC 40MG DAILY, START LOSARTAN 100MG HS. WE WILL RECHECK LABS AND FOLLOW UP WITH PATIENT IN AM. - Past Medical Family Social History Past Med/Fam/Surg Hx: No changes since H&P Allergies: Allergies Penicillins Allergy (Verified 12/30/16 00:27) Sulfa (Sulfonamide Antibiotics) [SULFA] Allergy (Verified 12/30/16 00:27) - Review of Systems ROS: No change since H&P - Vital Signs and I&O's Vital Signs: Temperature 99.1 F Pulse Rate [Apical] 101 Pulse Rate 92 Respiratory Rate 19 Blood Pressure [Left Arm] 122/101 O2 Sat by Pulse Oximetry 97 Intake and Output: Intake & Output 01/05/17 01/06/17 01/07/17 01/08/17 11:59 11:59 11:59 11:59 Intake Total 460 928 856 Output Total 400 Balance 460 528 856 - Physical Exam Oriented: Normal. negative: Time, Person, Place, Not Oriented, Unable to test, Other Eyes: Blurred Vision. negative: Normal, Diplopia, Discharge, Pain, Redness, Photophobia, Other Ear: Normal Nose: Normal. negative: Injected, Discharge, Blood, Other Throat: Normal. negative: Tonsillar Hypertrophy, Red, Exudate, Dry, Other Respiratory: Normal Cardiovascular: Normal. negative: Tachycardia, Bradycardia, Irregular, S3, S4, Systolic, Diastolic, Murmur, Edema, Other : Normal. negative: Dysuria, Hematuria, Frequency, Discharge, Testicular Pain , Bleeding, , Other Auscultation: Bowel Sounds: Normal. negative: Bruit, Absent, Increased, Decreased, High Pitched, Other Palpation: Normal Tenderness: Normal. negative: Diffuse, RUQ, RLQ, LUQ, LLQ, Epigastric, Periumbilical, Suprapubic, Mild, Moderate, Severe, Rebound, Guarding, Rigidity, Other Skin: Normal. negative: Decreased Turgur, Rash, Papular, Macular, Maculopapular , Vesicular, Pustular, Petechial, Red, Tender, Hot, Diaphoresis, Wound, Bruising , Ecchymosis, Other Musculoskeletal: Normal. negative: Right, Left, Shoulder, Clavicle, Arm, Elbow , Forearm, Wrist, Hand, Hip, Thigh, Knee, Leg, Ankle, Foot, Back:Thoracic, Back: Lumbar, Back:Midline, Back:Paraspinous, Pelvis, Swelling, Tender, Deformity, Pulse Deficit, Motor Deficit, Sensory Deficit, Instability, Crepitance Psychiatric: Normal. negative: Anxiety, Depression, Agitation, Other Mood Description: Calm. negative: Angry, Apathetic, Depressed, Fearful, Flat, Happy, Hostile, Sad, Suspicious, Withdrawn, Anxious, Appropriate, Labile Affect: Normal. negative: Angry, Anxious, Depressed, Flat, Hysterical, Quiet, Violent Speech Pattern: Clear, Appropriate - Laboratory and Diagnostics Result Diagrams: 01/08/17 04:05 01/08/17 04:05 Labs: 01/06/17 10:25 Blood Blood Culture - Preliminary 01/06/17 10:20 Blood Blood Culture - Preliminary Laboratory WBC 4.6 X10^3/uL (3.6-10.0) 01/08/17 04:05 RBC 3.88 X10^6/uL (3.5-5.4) 01/08/17 04:05 Hgb 9.4 g/dL (12.0-16.0) L 01/08/17 04:05 Hct 28.3 % (36.0-47.0) L 01/08/17 04:05 MCV 72.9 fL (80.0-100.0) L 01/08/17 04:05 MCH 24.1 pg (27.0-34.0) L 01/08/17 04:05 MCHC 33.1 g/dL (33.0-35.0) 01/08/17 04:05 RDW 15.2 % (11.6-16.5) 01/08/17 04:05 Plt Count 314 X10^3/uL (150.0-450.0) 01/08/17 04:05 Plt Count Comment Adequate (ADEQUATE) 01/08/17 04:05 MPV 7.2 fL (7.4-11.0) L 01/08/17 04:05 Neut % 49.7 % (42.0-75.0) 01/08/17 04:05 Lymph % 35.7 % (21.0-51.0) 01/08/17 04:05 [place] % 11.0 % (0.0-13.0) 01/08/17 04:05 Eos % 2.5 % (0.9-2.9) 01/08/17 04:05 Baso % 1.1 % (0.2-1.0) H 01/08/17 04:05 Neut # 2.3 x10^3/uL (2.2-4.8) 01/08/17 04:05 Lymph # 1.7 X10^3/uL (1.3-2.9) 01/08/17 04:05 [place] # 0.5 x10^3/uL (0.3-0.8) 01/08/17 04:05 Eos # 0.1 x10^3/uL (0.0-0.2) 01/08/17 04:05 Baso # 0.1 X10^3/uL (0.0-0.1) 01/08/17 04:05 Absolute Nucleated RBC 0.0 /100WBC 01/08/17 04:05 Plt Morphology Comment Normal (NORMAL) 01/08/17 04:05 RBC Morphology Abnormal (NORMAL) A 01/08/17 04:05 Hypochromasia 1+ A 01/08/17 04:05 Microcytosis Slight A 01/08/17 04:05 Sodium 138 mmol/L (136-145) 01/08/17 04:05 Corrected Sodium 139 mmol/L (136-145) 01/08/17 04:05 Potassium 4.2 mmol/L (3.5-5.1) 01/08/17 04:05 Chloride 101 mmol/L (98-107) 01/08/17 04:05 Carbon Dioxide 27.5 mmol/L (21-32) 01/08/17 04:05 BUN 15 mg/dL (7-18) 01/08/17 04:05 Creatinine 1.10 mg/dL (0.55-1.02) H 01/08/17 04:05 Est GFR (MDRD) Af Amer > 60 (>60) 01/08/17 04:05 Est GFR (MDRD) Non-Af 54 (>60) L 01/08/17 04:05 Glucose 128 mg/dL (65-99) H 01/08/17 04:05 Calcium 8.8 mg/dL (8.5-10.1) 01/08/17 04:05 Corrected Calcium 9.4 mg/dL (8.5-10.1) 01/08/17 04:05 Total Bilirubin 0.30 mg/dL (0.2-1.0) 01/08/17 04:05 AST 13 Units/L (15-37) L 01/08/17 04:05 ALT 18 Units/L (12-78) 01/08/17 04:05 Alkaline Phosphatase 55 Units/L (46-116) 01/08/17 04:05 Creatine Kinase 136 Units/L (26-192) 01/07/17 01:30 CK-MB (CK-2) < 1.0 ng/mL (0-4.0) 01/07/17 01:30 CK/CKMB % Calc 0.7 % (<4) 01/07/17 01:30 Troponin I < 0.02 ng/mL (0-1.5) 01/07/17 01:30 Total Protein 7.4 g/dL (6.4-8.2) 01/08/17 04:05 Albumin 3.3 g/dL (3.4-5.0) L 01/08/17 04:05 Globulin 4.1 g/dL (2.5-4.5) 01/08/17 04:05 Albumin/Globulin Ratio 0.8 Ratio (1.1-2.1) L 01/08/17 04:05 Specimen Type Clean catch urine 01/06/17 13:27 Urine Color Yellow (YELLOW) 01/06/17 13:27 Urine Appearance Hazy (CLEAR) 01/06/17 13:27 Urine pH 6.0 (5.0 - 8.0) 01/06/17 13:27 Ur Specific [place] 1.010 (1.000-1.030) 01/06/17 13:27 Urine Protein 3+ (NEGATIVE) 01/06/17 13:27 Urine Glucose (UA) 1+ (NEGATIVE) 01/06/17 13:27 Urine Ketones Negative (NEGATIVE) 01/06/17 13:27 Urine Occult Blood Negative (NEGATIVE) 01/06/17 13:27 Urine Nitrite Negative (NEGATIVE) 01/06/17 13:27 Urine Bilirubin Negative (NEGATIVE) 01/06/17 13:27 Urine Urobilinogen Normal (NORMAL) 01/06/17 13:27 Ur Leukocyte Esterase Negative (NEGATIVE) 01/06/17 13:27 Urine RBC 0-2 /HPF (NEGATIVE) 01/06/17 13:27 Urine WBC 0-2 /HPF (NEGATIVE) 01/06/17 13:27 Ur Squamous Epith Cells Rare /HPF (NEGATIVE) 01/06/17 13:27 Urine Bacteria Trace /HPF (NEGATIVE) 01/06/17 13:27 Ur Culture Indicated? No/not indicated 01/06/17 13:27 Digoxin 0.74 ng/mL (0.9-2) L 01/08/17 04:05 - Plan (1) Syncope Status: Acute Qualifiers: Syncope type: unspecified Encounter type: E Qualified Code(s): R55 - Syncope and collapse Plan: CONTINUE TO MONITOR (2) Anemia Status: Acute Qualifiers: Anemia type: iron deficiency Iron deficiency anemia type: unspecified iron deficiency Vitamin B12 deficiency anemia type: V Folate deficiency anemia type: F Bone marrow failure anemia type: B Hemolytic anemia type: H Other causes of anemia: O Chronic kidney disease stage: C Qualified Code(s): D50.9 - Iron deficiency anemia, unspecified Plan: CONTINUE HEMOCYTE PLUS, MONITOR LABS AND PATIENT (3) Chest pain Status: Acute Qualifiers: Chest pain type: unspecified Ischemic chest pain type: I Qualified Code(s ): R07.9 - Chest pain, unspecified Plan: CONTINUE TO MONITOR (4) Anxiety Status: Acute Plan: CONTINUE KLONOPIN 0.5MG HS, INCREASE PROZAC TO PROZAC 40MG DAILY, CONTINUE TO MONITOR (5) Hypertension Status: Chronic Qualifiers: Hypertension type: essential hypertension Qualified Code(s): I10 - Essential (primary) hypertension Plan: START LOSARTAN 100MG HS, CONTINUE METOPROLOL 25MG BID, DISCONTINUE LISINOPRIL, CONTINUE TO MONITOR (6) Diabetes mellitus Status: Acute Qualifiers: Diabetes mellitus type: type 2 Diabetes mellitus complication status: with unspecified complications Diabetes mellitus complication detail: D Diabetic retinopathy severity: D Proliferative retinopathy type: P Diabetes mellitus macular edema: D 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
[2017-01-08] MEDS: HumuLIN R SUBCUT PRN (16:39)
[2017-01-08] MEDS: ZOCOR TAB 20 MG PO SCH (20:59)
[2017-01-08] MEDS ORDERED: COZAAR PO SCH ×2 (21:00)
[2017-01-08] MEDS: SNACK - Diabetic Appropriate PO SCH (21:02)
[2017-01-08] MEDS: KLONOPIN TAB 0.5 MG PO SCH (21:05)
[2017-01-09 06:15] LABS: BASOPHILS % (AUTO) 0.8 % (0.2-1.0); EOSINOPHILS # (AUTO) 0.1 x10^3/uL (0.0-0.2); EOSINOPHILS % (AUTO) 2.5 % (0.9-2.9); HEMOGLOBIN 9.4 g/dL (12.0-16.0); LYMPHOCYTES # (AUTO) 1.8 X10^3/uL (1.3-2.9); LYMPHOCYTES % (AUTO) 39.3 % (21.0-51.0); MEAN CORPUSCULAR HEMOGLOBIN 24.3 pg (27.0-34.0); MEAN CORPUSCULAR HGB CONC 33.6 g/dL (33.0-35.0); MEAN CORPUSCULAR VOLUME 72.4 fL (80.0-100.0); MEAN PLATELET VOLUME 7.2 fL (7.4-11.0); MONOCYTES # (AUTO) 0.5 x10^3/uL (0.3-0.8); MONOCYTES % (AUTO) 11.5 % (0.0-13.0); NEUTROPHILS # (AUTO) 2.1 x10^3/uL (2.2-4.8); NEUTROPHILS % (AUTO) 45.9 % (42.0-75.0); PLATELET COUNT 310 X10^3/uL (150.0-450.0); RED BLOOD COUNT 3.86 X10^6/uL (3.5-5.4); RED CELL DISTRIBUTION WIDTH 14.8 % (11.6-16.5); WHITE BLOOD COUNT 4.6 X10^3/uL (3.6-10.0)
[2017-01-09 06:34] LABS: ALBUMIN 3.1 g/dL (3.4-5.0); CALCIUM 8.7 mg/dL (8.5-10.1); CARBON DIOXIDE 29.8 mmol/L (21-32); COR CA(FOR HYPOALB) 9.4 mg/dL (8.5-10.1); CREATININE 1.28 mg/dL (0.55-1.02); DIGOXIN 0.71 ng/mL (0.9-2); TOTAL PROTEIN 7.3 g/dL (6.4-8.2)
[2017-01-09 07:03] LABS: HYPOCHROMASIA 1+; MICROCYTOSIS SLIGHT; PLATELET MORPHOLOGY COMMENT NORMAL (NORMAL)
[2017-01-09] MEDS ORDERED: GLUCOPHAGE ONE (08:04)
[2017-01-09] MEDS ORDERED: LOPRESSOR TAB 50 MG PO SCH (09:00)
[2017-01-09 09:06] VITALS: BP 177/98
[2017-01-09] MEDS: ASPIRIN PO SCH (11:08)
[2017-01-09] MEDS: LANOXIN PO SCH (11:08)
[2017-01-09] MEDS: CORDARONE TAB 200 MG PO SCH (11:08)
[2017-01-09] MEDS: GLUCOTROL PO SCH (11:09)
[2017-01-09] MEDS: NORCO 10/325 TAB PO SCH (11:09)
[2017-01-09] MEDS: PROzac PO SCH (11:09)
[2017-01-09] MEDS: PROTONIX INJ 40 MG VIAL IVP SCH (11:09)
[2017-01-09] MEDS: HEMOCYTE-PLUS PO SCH (11:09)
[2017-01-09] MEDS: GLUCOPHAGE PO SCH (11:10)
[2017-01-09] MEDS: LASIX PO SCH (11:10)
[2017-01-09] MEDS: PEPCID 20 MG IV PREMIX* 20 MG/50 ML BAG IV SCH (11:11)
[2017-01-09] MEDS: K-DUR TAB 20 MEQ PO SCH (11:11)
[2017-01-09] MEDS: LEVSIN/MAALOX/LIDOC VISC PO SCH (11:11)
== END 2017-01-09 12:25 | disposition home or self-care (01) | DRG 312 ==
LOC: ER 13:01 → ICU 15:09 → MED/SURG 01-08 10:38
PROVIDERS: ADMIT Internal Medicine; ATTEND Internal Medicine
DX: R55 Syncope and collapse (principal); D50.8 Other iron deficiency anemias; R94.31 Abnormal electrocardiogram [ECG] [EKG]; E11.65 Type 2 diabetes mellitus with hyperglycemia; I10 Essential (primary) hypertension; M13.89 Other specified arthritis, multiple sites; R53.1 Weakness; R51 Headache; R07.89 Other chest pain; M79.601 Pain in right arm; F41.8 Other specified anxiety disorders
CPT/HCPCS: 36415; 70450; 70553; 71010; 73060; 76856; 80053; 80162; 81001; 82550; 82553; 84132; 84484; 85014; 85018; 85025; 87040; 93005; 93010; 93306; 93880; 96365; 96374; 99284; A4216; A4222; C9113; S0028; J1815; J2310; J2405; J3490

== ENCOUNTER 2017-01-10 10:43 | Emergency (ER) | payer MEDICAID ==
[2017-01-10 10:55] VITALS: BP 109/58; BMI 30.2
[2017-01-10] MEDS ORDERED: NS 500 ML IV 500 ML IV ONE (11:31)
--- NOTE | 2017-01-10 11:31 | DR.GENAD ---
HPI - PCP Primary Care Physician: JOSH - Complaint/Symptoms Chief Complaint Doctors Comments: Patient was discharged from hospital on yesterday. Presents today with complaint of dizziness and low blood pressure. She is alert in no acute distress. Chief Complaint:: PATIENT STATED THAT PATIENT IS LOW B/P AND C/O DIZZY. - Source History Provided: Patient - Mode of Arrival Mode of Arrival: EMS - Timing Onset of Chief Complaint: 01/10/17 PMH - PMH Past Medical History: Yes Past Medical History: Arthritis, Diabetes, Hypertension Past Surgical History: Yes Surgical History: No History - Family History History of Family Medical Conditions: Yes Family Medical History: Diabetes Mellitus, Hypertension - Social History Does patient currently use any type of tobacco product: No Have you used tobacco products in the last 12 months: No Type of Tobacco Use: None Does any household member use tobacco: No Alcohol Use: None Do you use any recreational Drugs:: No Lives With: Family Lives Where: Home - infectious screening In the last 2 months have you had wt loss of >10#?: NO Have you had fever, night sweats or hemotysis?: No Have you traveled outside the country in the last 6 months?: No Isolation: Standard ROS - Review of Systems Eyes: No Symptoms Reported ENTM: No Symptoms Reported Respiratoy: No Symptoms Reported Cardiovascular: No Symptoms Reported Gastrointestinal/Abdominal: No Symptoms Reported Genitourinary: No Symptoms Reported Neurological: No Symptoms Reported Musculoskeletal: No Symptoms Reported Integumentary: No Symptoms Reported Hematologic/Lymphatic: No Symptoms Reported Endocrine: No Symptoms Reported Psychiatric: No Symptoms Reported All Other Systems: Reviewed and Negative PE - Vital Signs Vitals: Temperature 97.6 F Pulse Rate [Left Brachial] 74 Pulse Rate 76 Respiratory Rate 20 Blood Pressure [Left Arm] 109/58 Blood Pressure 99/55 O2 Sat by Pulse Oximetry 100 - General General Appearance: Alert, In No Apparent Distress - Head Head Exam: Normal Inspection, Atraumatic - Eyes Eye exam: Normal Appearance, PERRL, EOMI - ENT ENT Exam: Normal Exam External Ear Exam: Normal External Inspection TM/Canal Exam: Bilateral Normal Nose Exam: Normal Nose Exam Mouth Exam: Normal Inspection Throat Exam: Normal Inspection - Neck Neck Exam: Normal Inspection - Chest Chest Inspection: Normal Inspection - Respiratory Respiratory Exam: Normal Lung Sounds Bilat Respiratory Exam: Bilateral Clear to Auscultation - Cardiovascular Cardiovascular Exam: Regular Rate, Normal Rhythm - Abdominal Exam Abdominal Exam: Normal Inspection - Extremities Extremities Exam: Normal Inspection, Full ROM - Back Back Exam: Normal Inspection, Full ROM - Neurologic Neurological Exam: Alert, Oriented X3, CN II-XII Intact - Psychiatric Psychiatric Exam: Normal Affect - Skin Skin Exam: Warm, Dry, Intact Course - Reevaluation 1st: Improved ROR - Labs Reviewed Result Diagrams: 01/10/17 11:42 01/10/17 11:42 Laboratory: WBC 4.7 X10^3/uL (3.6-10.0) 01/10/17 11:42 RBC 3.66 X10^6/uL (3.5-5.4) 01/10/17 11:42 Hgb 8.6 g/dL (12.0-16.0) L 01/10/17 11:42 Hct 26.2 % (36.0-47.0) L 01/10/17 11:42 MCV 71.6 fL (80.0-100.0) L 01/10/17 11:42 MCH 23.5 pg (27.0-34.0) L 01/10/17 11:42 MCHC 32.9 g/dL (33.0-35.0) L 01/10/17 11:42 RDW 15.2 % (11.6-16.5) 01/10/17 11:42 Plt Count 305 X10^3/uL (150.0-450.0) 01/10/17 11:42 Plt Count Comment Adequate (ADEQUATE) 01/10/17 11:42 MPV 6.8 fL (7.4-11.0) L 01/10/17 11:42 Neut % 73.0 % (42.0-75.0) 01/10/17 11:42 Lymph % 16.4 % (21.0-51.0) L 01/10/17 11:42 [place] % 8.9 % (0.0-13.0) 01/10/17 11:42 Eos % 0.9 % (0.9-2.9) 01/10/17 11:42 Baso % 0.8 % (0.2-1.0) 01/10/17 11:42 Neut # 3.5 x10^3/uL (2.2-4.8) 01/10/17 11:42 Lymph # 0.8 X10^3/uL (1.3-2.9) L 01/10/17 11:42 [place] # 0.4 x10^3/uL (0.3-0.8) 01/10/17 11:42 Eos # 0.0 x10^3/uL (0.0-0.2) 01/10/17 11:42 Baso # 0.0 X10^3/uL (0.0-0.1) 01/10/17 11:42 Absolute Nucleated RBC 0.0 /100WBC 01/10/17 11:42 Plt Morphology Comment Normal (NORMAL) 01/10/17 11:42 RBC Morphology Abnormal (NORMAL) A 01/10/17 11:42 Hypochromasia Slight A 01/10/17 11:42 Sodium 137 mmol/L (136-145) 01/10/17 11:42 Corrected Sodium 140 mmol/L (136-145) 01/10/17 11:42 Potassium 4.0 mmol/L (3.5-5.1) 01/10/17 11:42 Chloride 101 mmol/L (98-107) 01/10/17 11:42 Carbon Dioxide 27.6 mmol/L (21-32) 01/10/17 11:42 BUN 24 mg/dL (7-18) H 01/10/17 11:42 Creatinine 1.10 mg/dL (0.55-1.02) H 01/10/17 11:42 Est GFR (MDRD) Af Amer > 60 (>60) 01/10/17 11:42 Est GFR (MDRD) Non-Af 54 (>60) L 01/10/17 11:42 Glucose 215 mg/dL (65-99) H 01/10/17 11:42 Calcium 8.6 mg/dL (8.5-10.1) 01/10/17 11:42 - Diagnosis Discharge Problem: Mild dehydration Low blood pressure Qualifiers: Hypotension type: other hypotension type Qualified Code(s): I95.89 - Other hypotension - Discharge Plan Condition: Stable - Follow ups/Referrals Follow ups/Referrals: Olegario Munoz [Primary Care Provider] - 3 days - Instructions
[2017-01-10] MEDS ORDERED: NS 1000 ML 1,000 ML ONE (11:42)
[2017-01-10 11:50] LABS: BASOPHILS % (AUTO) 0.8 % (0.2-1.0); EOSINOPHILS % (AUTO) 0.9 % (0.9-2.9); HEMATOCRIT 26.2 % (36.0-47.0); HEMOGLOBIN 8.6 g/dL (12.0-16.0); LYMPHOCYTES # (AUTO) 0.8 X10^3/uL (1.3-2.9); LYMPHOCYTES % (AUTO) 16.4 % (21.0-51.0); MEAN CORPUSCULAR HEMOGLOBIN 23.5 pg (27.0-34.0); MEAN CORPUSCULAR HGB CONC 32.9 g/dL (33.0-35.0); MEAN CORPUSCULAR VOLUME 71.6 fL (80.0-100.0); MEAN PLATELET VOLUME 6.8 fL (7.4-11.0); MONOCYTES # (AUTO) 0.4 x10^3/uL (0.3-0.8); MONOCYTES % (AUTO) 8.9 % (0.0-13.0); NEUTROPHILS # (AUTO) 3.5 x10^3/uL (2.2-4.8); PLATELET COUNT 305 X10^3/uL (150.0-450.0); RED BLOOD COUNT 3.66 X10^6/uL (3.5-5.4); RED CELL DISTRIBUTION WIDTH 15.2 % (11.6-16.5); WHITE BLOOD COUNT 4.7 X10^3/uL (3.6-10.0)
[2017-01-10 11:55] LABS: BLOOD UREA NITROGEN 24 mg/dL (7-18); CALCIUM 8.6 mg/dL (8.5-10.1); CARBON DIOXIDE 27.6 mmol/L (21-32); CHLORIDE 101 mmol/L (98-107); COR NA(FOR HYPERGLY) 140 mmol/L (136-145); GLUCOSE 215 mg/dL (65-99); SODIUM 137 mmol/L (136-145); eGFR BLACK RACES > 60 (>60); eGFR NON BLACK RACES 54 (>60)
[2017-01-10 12:09] LABS: HYPOCHROMASIA SLIGHT; PLATELET MORPHOLOGY COMMENT NORMAL (NORMAL)
== END 2017-01-10 13:09 | disposition home or self-care (01) ==
LOC: ER 10:47
DX: I95.89 Other hypotension (principal); E86.0 Dehydration
CPT/HCPCS: 36415; 80048; 85025; 96365; 99282; 99283

== ENCOUNTER 2017-02-18 10:49 | Inpatient (IN) | payer MEDICAID ==
--- NOTE | 2017-02-18 11:07 | DR.GENAD ---
HPI - PCP Primary Care Physician: hoang - HPI Comment HPI Comment: PATIENT DENIES FEVER. NAUSEATED. BP ELEVATED BUT DID NOT TAKE BP MED TODAY. - Complaint/Symptoms Chief Complaint Doctors Comments: PATIENT HAVING GENERALIZE SEVERE BODYACHE AND HEADACHE. LAST NIGHT SEEN AT [facility] WHERE BLOOD WORK WAS DONE.WENT HOME AND CONTINUE TO FEEL BAD. Chief Complaint:: pt c/o leg pain and body pain - Nurses notes reviewed Nurses Notes Review: Yes - Source History Provided: Patient - Mode of Arrival Mode of Arrival: Ambulatory - Timing Onset of Chief Complaint: 02/18/17 Came on: Suddenly - Duration Duration: Constant Duration: Hours - Severity Severity: Moderate PMH - PMH Past Medical History: Yes Past Medical History: Arthritis, Diabetes, Hypertension Past Surgical History: Yes Surgical History: No History - Family History History of Family Medical Conditions: Yes Family Medical History: Diabetes Mellitus, Hypertension - Social History Does any household member use tobacco: No Alcohol Use: None Do you use any recreational Drugs:: No Lives With: Family Lives Where: Home - infectious screening In the last 2 months have you had wt loss of >10#?: NO Have you had fever, night sweats or hemotysis?: No Have you traveled outside the country in the last 6 months?: No Isolation: Standard ROS - Review of Systems Constitutional: No Symptoms Reported, Weakness, Fatigue, Loss of Appetite. negative: Chills, Fever Eyes: No Symptoms Reported. negative: Eye Pain, Discharge ENTM: No Symptoms Reported, Ear Pain Respiratoy: Non-Productive Cough, Short of Breath. negative: Wheezing, Hemoptysis Cardiovascular: Chest Pain. negative: Edema, Palpitations, Syncope (NEAR SYNCOPAL EPISODES) Gastrointestinal/Abdominal: negative: Abdominal Pain, Constipation, Diarrhea Genitourinary: No Symptoms Reported. negative: Dysuria, Frequency, Hematuria Neurological: Headache, Weakness, Dizziness Musculoskeletal: No Symptoms Reported, Back Pain, Muscle Pain Integumentary: No Symptoms Reported Hematologic/Lymphatic: No Symptoms Reported Endocrine: No Symptoms Reported All Other Systems: Reviewed and Negative PE - Vital Signs Vitals: Temperature 98.1 F Pulse Rate [Left Brachial] 58 Pulse Rate 72 Respiratory Rate 18 Blood Pressure [Left Arm] 188/94 Blood Pressure 194/110 O2 Sat by Pulse Oximetry 100 - General Limitations: No Limitations General Appearance: Alert - Head Head Exam: Normal Inspection - Eyes Eye exam: Normal Appearance - ENT ENT Exam: Normal External Ear Exam External Ear Exam: Normal External Inspection TM/Canal Exam: Bilateral Normal Nose Exam: Normal Nose Exam Mouth Exam: Normal Inspection Throat Exam: Normal Inspection - Neck Neck Exam: Trachea Midline - Chest Chest Inspection: Symmetric Chest Wall Rise - Respiratory Respiratory Exam: Normal Lung Sounds Bilat Respiratory Exam: Bilateral Clear to Auscultation - Cardiovascular Cardiovascular Exam: Regular Rate, Normal Rhythm, Normal Heart Sounds - Abdominal Exam Abdominal Exam: Normal Bowel Sounds, Soft. negative: Tenderness - Extremities Extremities Exam: Normal Inspection. negative: Edema, Calf Tenderness - Back Back Exam: Paraspinal Tenderness (BACK MUCLES) - Neurologic Neurological Exam: Alert, Oriented X3 - Psychiatric Psychiatric Exam: Anxious - Skin Skin Exam: Normal Color MDM - Additional Information Additional Information Obtained From: Family - Differential Diagnosis Differential Diagnosis: MYALGIA, HEADACHE,CVA, SEPSIS, CA, PNEUMONIS Course - Treatment Treatment: SEE ORDERS. - Consultation Consultation Comments: DISCUSS PATIENT WITH DR. MORENO. HE WILL ADMIT PATIENT. - Education/Counseling Education/Counseling: Patient, Family, Education Educated On: Treatment, Diagnosis ROR - Labs Reviewed Laboratory Results Reviewed?: Yes Result Diagrams: 02/18/17 12:40 02/18/17 12:40 Laboratory: WBC 4.5 X10^3/uL (3.6-10.0) 02/18/17 12:40 RBC 4.09 X10^6/uL (3.5-5.4) 02/18/17 12:40 Hgb 9.6 g/dL (12.0-16.0) L 02/18/17 12:40 Hct 29.4 % (36.0-47.0) L 02/18/17 12:40 MCV 72.0 fL (80.0-100.0) L 02/18/17 12:40 MCH 23.4 pg (27.0-34.0) L 02/18/17 12:40 MCHC 32.5 g/dL (33.0-35.0) L 02/18/17 12:40 RDW 14.9 % (11.6-16.5) 02/18/17 12:40 Plt Count 380 X10^3/uL (150.0-450.0) 02/18/17 12:40 Plt Count Comment Adequate (ADEQUATE) 02/18/17 12:40 MPV 7.2 fL (7.4-11.0) L 02/18/17 12:40 Neut % 47.8 % (42.0-75.0) 02/18/17 12:40 Lymph % 35.3 % (21.0-51.0) 02/18/17 12:40 [place] % 10.0 % (0.0-13.0) 02/18/17 12:40 Eos % 5.3 % (0.9-2.9) H 02/18/17 12:40 Baso % 1.6 % (0.2-1.0) H 02/18/17 12:40 Neut # 2.2 x10^3/uL (2.2-4.8) 02/18/17 12:40 Lymph # 1.6 X10^3/uL (1.3-2.9) 02/18/17 12:40 [place] # 0.5 x10^3/uL (0.3-0.8) 02/18/17 12:40 Eos # 0.2 x10^3/uL (0.0-0.2) 02/18/17 12:40 Baso # 0.1 X10^3/uL (0.0-0.1) 02/18/17 12:40 Absolute Nucleated RBC 0.0 /100WBC 02/18/17 12:40 Plt Morphology Comment Normal (NORMAL) 02/18/17 12:40 RBC Morphology Abnormal (NORMAL) A 02/18/17 12:40 Hypochromasia Slight A 02/18/17 12:40 Sodium 138 mmol/L (136-145) 02/18/17 12:40 Corrected Sodium 140 mmol/L (136-145) 02/18/17 12:40 Potassium 4.0 mmol/L (3.5-5.1) 02/18/17 12:40 Chloride 100 mmol/L (98-107) 02/18/17 12:40 Carbon Dioxide 27.4 mmol/L (21-32) 02/18/17 12:40 BUN 17 mg/dL (7-18) 02/18/17 12:40 Creatinine 1.21 mg/dL (0.55-1.02) H 02/18/17 12:40 Est GFR (MDRD) Af Amer 58 (>60) L 02/18/17 12:40 Est GFR (MDRD) Non-Af 48 (>60) L 02/18/17 12:40 Glucose 178 mg/dL (65-99) H 02/18/17 12:40 Calcium 9.5 mg/dL (8.5-10.1) 02/18/17 12:40 Corrected Calcium TNP 02/18/17 12:40 Total Bilirubin 0.20 mg/dL (0.2-1.0) 02/18/17 12:40 AST 14 Units/L (15-37) L 02/18/17 12:40 ALT 17 Units/L (12-78) 02/18/17 12:40 Alkaline Phosphatase 57 Units/L (46-116) 02/18/17 12:40 Creatine Kinase 168 Units/L (26-192) 02/18/17 12:40 CK-MB (CK-2) < 1.0 ng/mL (0-4.0) 02/18/17 12:40 CK/CKMB % Calc 0.6 % (<4) 02/18/17 12:40 Troponin I < 0.02 ng/mL (0-1.5) 02/18/17 12:40 Total Protein 8.2 g/dL (6.4-8.2) 02/18/17 12:40 Albumin 3.9 g/dL (3.4-5.0) 02/18/17 12:40 Globulin 4.3 g/dL (2.5-4.5) 02/18/17 12:40 Albumin/Globulin Ratio 0.9 Ratio (1.1-2.1) L 02/18/17 12:40 Specimen Type Clean catch urine 02/18/17 12:02 Urine Color Yellow (YELLOW) 02/18/17 12:02 Urine Appearance Clear (CLEAR) 02/18/17 12:02 Urine pH 7.0 (5.0 - 8.0) 02/18/17 12:02 Ur Specific [place] 1.005 (1.000-1.030) 02/18/17 12:02 Urine Protein 3+ (NEGATIVE) 02/18/17 12:02 Urine Glucose (UA) Negative (NEGATIVE) 02/18/17 12:02 Urine Ketones Negative (NEGATIVE) 02/18/17 12:02 Urine Occult Blood Negative (NEGATIVE) 02/18/17 12:02 Urine Nitrite Negative (NEGATIVE) 02/18/17 12:02 Urine Bilirubin Negative (NEGATIVE) 02/18/17 12:02 Urine Urobilinogen Normal (NORMAL) 02/18/17 12:02 Ur Leukocyte Esterase Negative (NEGATIVE) 02/18/17 12:02 Urine RBC 0-1 /HPF (NEGATIVE) 02/18/17 12:02 Urine WBC 0-1 /HPF (NEGATIVE) 02/18/17 12:02 Ur Squamous Epith Cells Few /HPF (NEGATIVE) 02/18/17 12:02 Urine Bacteria Trace /HPF (NEGATIVE) 02/18/17 12:02 Ur Culture Indicated? No/not indicated 02/18/17 12:02 Streptococcus Screen Negative (NEGATIVE) 02/18/17 11:48 - XRAY XRAY Interpreted by: Radiologist XRAY Findings: REPORT DISCUSS WITH PATIENT AND FAMILY. - Diagnosis Discharge Problem: Generalized pain, Mastoiditis of right side, Generalized weakness Pain, ear Qualifiers: Laterality: right Qualified Code(s): H92.01 - Otalgia, right ear - Discharge Plan Disposition: ADMITTED INPATIENT Condition: Stable - Follow ups/Referrals - Instructions
[2017-02-18] MEDS ORDERED: TORADOL 60 MG VIAL IM ONE (11:23)
[2017-02-18] MEDS ORDERED: TORADOL 60 MG VIAL ONE (11:43)
[2017-02-18 12:10] LABS: BILIRUBIN,URINE NEGATIVE (NEGATIVE); BLOOD/HEMOGLOBIN,URINE NEGATIVE (NEGATIVE); GLUCOSE, URINE NEGATIVE (NEGATIVE); KETONES,URINE NEGATIVE (NEGATIVE); LEUKOCYTE ESTERASE ,URINE NEGATIVE (NEGATIVE); NITRITES,URINE NEGATIVE (NEGATIVE); PROTEIN,URINE 3+ (NEGATIVE); UROBILINOGEN,URINE NORMAL (NORMAL)
[2017-02-18 12:23] LABS: APPEARANCE,URINE CLEAR (CLEAR); COLOR,URINE YELLOW (YELLOW); RBC,URINE 0-1 /HPF (NEGATIVE); SQUAMOUS EPITHELIAL CELL,UR FEW /HPF (NEGATIVE)
[2017-02-18 12:24] LABS: BACTERIA,URINE TRACE /HPF (NEGATIVE)
[2017-02-18 12:53] LABS: BASOPHILS # (AUTO) 0.1 X10^3/uL (0.0-0.1); BASOPHILS % (AUTO) 1.6 % (0.2-1.0); EOSINOPHILS # (AUTO) 0.2 x10^3/uL (0.0-0.2); EOSINOPHILS % (AUTO) 5.3 % (0.9-2.9); HEMATOCRIT 29.4 % (36.0-47.0); HEMOGLOBIN 9.6 g/dL (12.0-16.0); LYMPHOCYTES # (AUTO) 1.6 X10^3/uL (1.3-2.9); LYMPHOCYTES % (AUTO) 35.3 % (21.0-51.0); MEAN CORPUSCULAR HEMOGLOBIN 23.4 pg (27.0-34.0); MEAN CORPUSCULAR HGB CONC 32.5 g/dL (33.0-35.0); MEAN PLATELET VOLUME 7.2 fL (7.4-11.0); MONOCYTES # (AUTO) 0.5 x10^3/uL (0.3-0.8); NEUTROPHILS # (AUTO) 2.2 x10^3/uL (2.2-4.8); NEUTROPHILS % (AUTO) 47.8 % (42.0-75.0); PLATELET COUNT 380 X10^3/uL (150.0-450.0); RED BLOOD COUNT 4.09 X10^6/uL (3.5-5.4); RED CELL DISTRIBUTION WIDTH 14.9 % (11.6-16.5); WHITE BLOOD COUNT 4.5 X10^3/uL (3.6-10.0)
--- NOTE | 2017-02-18 12:53 | CT ---
HISTORY: Headache. Study: CT brain without contrast Comparison: CT head dated dated January 05, 2017. Technique: Multiple axial images of the brain were obtained from the skull base to the vertex without administra tion of IV contrast. Dose reduction techniques including Automated Exposure Control (AEC) and adjust ment of mA and kV were utilized. Findings: Age related cortical atrophy and chronic small vessel ischemic changes. No acute intraparenchymal hem orrhage or mass can be identified. No extra-axial fluid collections are seen. No alteration in the attenuation of the brain parenchyma can be identified to suggest acute or subacute ischemic change. The ventricular system is symmetric and nondilated. Chronic fluid is seen within the right mastoid ai r cells. Remaining visualized paranasal sinuses and mastoid air cells are clear. The osseous structur es are otherwise intact. IMPRESSION: 1. No acute intracranial pathology. 2. Chronic right mastoid air cell disease. Reported By:
--- NOTE | 2017-02-18 12:57 | RAD ---
HISTORY: Chest pain. Atrial fibrillation. Aching all over Study: Single-view chest, done portably Comparison: January 05, 2017 Findings: There is a right-sided tracheal indentation at the level of thoracic inlet which may be secondary to thyroid or other neck mass. Evaluation of this area by ultrasound may be of benefit appear the heart size is at the upper limits of normal with aortic uncoiling. Lungs and pleural spaces are clear. No i nfiltrate, CHF, pleural fluid or pneumothorax is seen. Glenohumeral degenerative changes are present bilaterally. There is evidence of right-sided rotator cuff insufficiency. An acute osseous abnormalit y is not identified. IMPRESSION: Indentation up on the right side of the trachea at the level of the thoracic inlet. This may indicate thyroid or other neck mass. Ultrasound of this area is recommended. Hypertensive configuration without acute cardiopulmonary disease. Reported By:
[2017-02-18 13:01] LABS: PLATELET MORPHOLOGY COMMENT NORMAL (NORMAL)
[2017-02-18 13:02] LABS: HYPOCHROMASIA SLIGHT
[2017-02-18 13:17] LABS: BLOOD UREA NITROGEN 17 mg/dL (7-18); CALCIUM 9.5 mg/dL (8.5-10.1); CARBON DIOXIDE 27.4 mmol/L (21-32); CHLORIDE 100 mmol/L (98-107); COR NA(FOR HYPERGLY) 140 mmol/L (136-145); CREATININE 1.21 mg/dL (0.55-1.02); SODIUM 138 mmol/L (136-145); TROPONIN I < 0.02 ng/mL (0-1.5); eGFR BLACK RACES 58 (>60); eGFR NON BLACK RACES 48 (>60)
[2017-02-18 13:19] LABS: ALANINE AMINOTRANSFERASE 17 Units/L (12-78); ALBUMIN 3.9 g/dL (3.4-5.0); ALKALINE PHOSPHATASE 57 Units/L (46-116); ASPARTATE AMINO TRANSFERASE 14 Units/L (15-37); CKMB % 0.6 % (<4); CREATINE KINASE 168 Units/L (26-192); CREATINE KINASE MB < 1.0 ng/mL (0-4.0); TOTAL PROTEIN 8.2 g/dL (6.4-8.2)
[2017-02-18] MEDS ORDERED: ROCEPHIN VIAL 1 GM 1 GM in NS 50 ML IV + SPIKE MINIBAG* 50 ML IV ONE (13:56)
[2017-02-18] MEDS ORDERED: NS 1000 ML 1,000 ML ONE (14:04)
[2017-02-18] MEDS ORDERED: ROCEPHIN 1 GM IV PREMIX * OUT OF STOCK 50 ML IV ONE (14:04)
[2017-02-18] MEDS: NS 1000 ML 1,000 ML IV SCH (14:08)
[2017-02-18] MEDS ORDERED: SOLU-Medrol 125 MG VIAL IVP ONE (15:26)
[2017-02-18] MEDS ORDERED: SOLU-Medrol 125 MG VIAL ONE (15:29)
[2017-02-18] MEDS: SOLU-Medrol 40 MG VIAL IVP SCH ×2 (16:30→21:48)
[2017-02-18 16:52] VITALS: BMI 26.9
[2017-02-18] MEDS: TORADOL 30 MG VIAL IVP PRN (17:20)
[2017-02-18 20:32] LABS: CKMB % 0.6 % (<4); CREATINE KINASE 174 Units/L (26-192); CREATINE KINASE MB < 1.0 ng/mL (0-4.0); TROPONIN I < 0.02 ng/mL (0-1.5)
[2017-02-18] MEDS: HumuLIN R SC PRN (21:48)
[2017-02-19] MEDS: TORADOL 30 MG VIAL IVP PRN ×3 (01:22→19:42)
[2017-02-19 01:55] LABS: CKMB % 0.7 % (<4); CREATINE KINASE 146 Units/L (26-192); CREATINE KINASE MB < 1.0 ng/mL (0-4.0); TROPONIN I < 0.02 ng/mL (0-1.5)
[2017-02-19 05:29] LABS: ALANINE AMINOTRANSFERASE 23 Units/L (12-78); ALBUMIN 4.1 g/dL (3.4-5.0); ALKALINE PHOSPHATASE 62 Units/L (46-116); ASPARTATE AMINO TRANSFERASE 18 Units/L (15-37); BLOOD UREA NITROGEN 22 mg/dL (7-18); CALCIUM 9.4 mg/dL (8.5-10.1); CARBON DIOXIDE 26.9 mmol/L (21-32); CHLORIDE 100 mmol/L (98-107); COR NA(FOR HYPERGLY) 140 mmol/L (136-145); CREATININE 1.27 mg/dL (0.55-1.02); SODIUM 138 mmol/L (136-145); TOTAL PROTEIN 8.7 g/dL (6.4-8.2); eGFR BLACK RACES 55 (>60); eGFR NON BLACK RACES 45 (>60)
[2017-02-19 05:38] LABS: BASOPHILS % (AUTO) 0.3 % (0.2-1.0); HEMATOCRIT 31.4 % (36.0-47.0); HEMOGLOBIN 10.2 g/dL (12.0-16.0); LYMPHOCYTES # (AUTO) 0.7 X10^3/uL (1.3-2.9); LYMPHOCYTES % (AUTO) 16.2 % (21.0-51.0); MEAN CORPUSCULAR HEMOGLOBIN 23.7 pg (27.0-34.0); MEAN CORPUSCULAR HGB CONC 32.4 g/dL (33.0-35.0); MEAN CORPUSCULAR VOLUME 73.2 fL (80.0-100.0); MEAN PLATELET VOLUME 7.6 fL (7.4-11.0); MONOCYTES # (AUTO) 0.2 x10^3/uL (0.3-0.8); MONOCYTES % (AUTO) 6.1 % (0.0-13.0); NEUTROPHILS # (AUTO) 3.1 x10^3/uL (2.2-4.8); NEUTROPHILS % (AUTO) 77.4 % (42.0-75.0); PLATELET COUNT 419 X10^3/uL (150.0-450.0); RED BLOOD COUNT 4.29 X10^6/uL (3.5-5.4); WHITE BLOOD COUNT 4.1 X10^3/uL (3.6-10.0)
[2017-02-19 05:59] LABS: HYPOCHROMASIA 1+; MICROCYTOSIS 1+; PLATELET MORPHOLOGY COMMENT NORMAL (NORMAL)
[2017-02-19] MEDS: HumuLIN R SC PRN ×3 (06:08→21:06)
[2017-02-19] MEDS: SOLU-Medrol 40 MG VIAL IVP SCH ×3 (06:08→21:07)
[2017-02-19] MEDS: NS 1000 ML 1,000 ML IV SCH ×2 (06:12→19:44)
[2017-02-19] MEDS: CATAPRES TAB 0.1 MG PO SCH ×3 (09:09→21:07)
[2017-02-19] MEDS: LOPRESSOR TAB 50 MG PO SCH ×3 (09:09→21:07)
[2017-02-19] MEDS: SNACK - Diabetic Appropriate PO SCH ×2 (10:04→21:07)
--- NOTE | 2017-02-19 10:23 | DR.H&P ---
H&P - History & Physical for Day of: H&P Date: 02/18/17 - Chief Complaint Chief Complaint: IS A 61 YEAR OLD PATIENT WHO PRESENTED TO THE EMERGENCY ROOM WITH COMPLAINTS OF GENERALIZED BODY ACHES, HEADACHE, NON- PRODUCTIVE COUGH, AND SHORTNESS OF BREATH. PATIENT REPORTED THAT SHE WAS SEEN AT [facility] IN [place] LAST NIGHT WHERE BLOOD WORK WAS DRAWN. SHE REPORTED THAT SHE WAS DISCHARGED HOME FROM THERE, BUT CONTINUED TO FEEL BAD. ASSOCIATED SYMPTOMS ARE NAUSEA, WEAKNESS, AND DIZZINESS. SHE DENIED FEVER. ON ARRIVAL TO ER, VITALS WERE 98.1-72-18-100%-194/110. LABS AND XRAYS WERE OBTAINED. ABNORMAL LAB VALUES INCLUDE THE FOLLOWING: HGB 9.6, HCT 29.4, CREATININE 1.21, GFR 58, GLUCOSE 178, AST 14. STREP TEST NEGATIVE. BRAIN CT REPORTED CHRONIC RIGHT MASTOID AIR CELL DISEASE. CHEST XRAY REPORTED INDENTATION UP ON THE RIGHT SIDE OF THE TRACHEA AT THE LEVEL OF THE THORACIC INLET THAT MAY INDICATE THYROID OR OTHER NECK MASS. PATIENT WAS GIVEN TORADOL 60MG IM X 1, SOLUMEDROL 125MG IV X 1, AND ROCEPHIN 1GM IV X 1. WE ADMITTED PATIENT FOR FURTHER TREATMENT AND EVALUATION WITH DIAGNOSIS OF MASTOIDITIS, PAIN , AND GENERALIZED WEAKNESS. WE STARTED PATIENT ON NS @ 50ML/HR, SOLU-MEDROL 40MG IV Q8H, INSULIN LSIDING SCALE, LOPRESSOR 50MG BID, CLONIDINE 0.1MG PO BID, AND TORADOL 30MG IV Q8H PRN. WE PLAN TO RECHECK AM LABS AND CONTINUE TO MONITOR PATIENT. - Allergies Allergies/Adverse Reactions: Allergies Allergy/AdvReac Type Severity Reaction Status Date / Time Penicillins Allergy Verified 12/30/16 00:27 Sulfa (Sulfonamide Allergy Verified 12/30/16 00:27 Antibiotics) [SULFA] - Past Medical History Past Medical History: Anemia, Anxiety, Arthritis, Depression, Diabetes, Hypertension, Hypothyroidism Additional Medical History: A-FIB - Past Surgical History Surgical History: No History - Family History Family Medical History: Diabetes Mellitus, Hypertension - Social History Does patient currently use any type of tobacco product: No Have you used tobacco products in the last 12 months: No Type of Tobacco Use: None Does any household member use tobacco: No Alcohol Use: None Drug Use: None - Medications Home Medications: Crkgtzhcvd-Lerx-Nnyitcnq [FIORICET 50/325/40 MG *] 1 tab PO BID PRN 02/18/17 [ History Confirmed 02/18/17] Clonidine HCl [CATAPRES 0.1 MG TAB *] 1 tab PO BID 02/18/17 [History Confirmed 02/18/17] Gabapentin [NEURONTIN CAP 100 MG *] 1 cap PO TID 02/18/17 [History Confirmed ] Hydralazine HCl 1 tab PO DAILY 02/18/17 [History Confirmed 02/18/17] Hydrochlorothiazide [HYDROCHLOROTHIAZIDE 25 MG TAB *] 1 tab PO DAILY 02/18/17 [ History Confirmed 02/18/17] Loratadine [Claritin] 1 tab PO DAILY 02/18/17 [History Confirmed 02/18/17] Metoprolol Tartrate [LOPRESSOR 50 MG *] 1 tab PO BID 02/18/17 [History Confirmed 02/18/17] Nifedipine [Nifedipine ER] 60 mg PO DAILY 02/18/17 [History Confirmed 02/18/17] - Review of Systems Constitutional: See HPI, Weakness Eyes: No Symptoms Reported ENT: No Symptoms Reported Respiratory: Cough, Shortness of Breath Cardiovascular: No Symptoms Reported Gastrointestinal: No Symptoms Reported Genitourinary: No Symptoms Reported Musculoskeletal: No Symptoms Reported Skin: No Symptoms Reported Neurological: See HPI, Weakness, Other (HEADACHE) - Physical Exam Vital Signs: Temperature 99.1 F Pulse Rate [Left Brachial] 69 Pulse Rate 72 Respiratory Rate 20 Blood Pressure [Left Arm] 195/90 Blood Pressure 194/110 O2 Sat by Pulse Oximetry 99 Oriented: Normal Eyes: Normal Ear: Normal Nose: Normal Throat: Normal Respiratory: Clear Throughout Cardiovascular: Normal : Normal Auscultation: Bowel Sounds: Normal Palpation: Normal Tenderness: Normal Skin: Normal Musculoskeletal: Normal Psychiatric: Normal Mood Description: Calm Affect: Normal Speech Pattern: Clear - Assessment/Plan (1) Mastoiditis of right side Status: Acute Plan: FORTAZ 1GM IV Q8H, CONTINUE TO MONITOR (2) Generalized pain Status: Acute Plan: TORADOL 30MG IV Q6H PRN, CONTINUE TO MONITOR (3) Generalized weakness Status: Acute Plan: CONTINUE IV FLUIDS, CHECK LABS, CONTINUE TO MONITOR
[2017-02-19] MEDS: FORTAZ or TAZICEF INJ 1 GM in NS 50 ML IV + SPIKE MINIBAG* 50 ML IV SCH ×3 (13:44→21:07)
[2017-02-19] MEDS ORDERED: NS 100 ML IV 100 ML IV ONE (14:56)
--- NOTE | 2017-02-19 17:06 | US ---
Ultrasound thyroid Indication: Neck mass Technique: Dynamic grayscale and Doppler imaging through the thyroid gland. Findings: The thyroid is enlarged. There is heterogeneous echotexture with multinodular goiter seen. Mild hyperemia may be present. Findings: The right lobe of the thyroid gland measures 4.5 x 3.9 x 5.4 cm. The left lobe of the thyro id gland measures 5.0 x 2.7 x 4.1 cm. The isthmus measures 6 mm in AP dimension. Impression: Large multinodular goiter growth hyperemia. Consider nuclear medicine functional testing to evaluate for functional adenoma. ENT surgical consultation recommended. Reported By:
--- NOTE | 2017-02-19 22:39 | PCM.PROG ---
Progress Note - Progress Note for Day of Date: 02/19/17 - Subjective Subjective: WAS ADMITTED FOR MASTOIDITIS, GENERALIZED WEAKNESS, AND GENERALIZED PAIN. SHE IS ALERT AND ORIENTED, LYING IN BED ON MORING ROUNDS. SHE IS NOTED WITH COMPLAINTS OF HEADACHE, ACHING ALL OVER, AND WEAKNESS. PATIENT DESCRIBES HEADACHE DULL AND CONSTANT. ON EXAMINATION, LUNGS ARE NOTED CLEAR TO AUSCULTATION. ABDOMEN SOFT, ROUND, AND NON-TENDER. BOWEL SOUNDS ARE NOTED NORMAL IN ALL QUADRANTS. VITAL SIGNS THIS AM WERE 99.1-69-20-99%-195/90. LABS WERE OBTAINED. ABNORMAL LAB VALUES INCLUDE HGB 10.2, HCT 31.4, BUN 22, CREATININE 1.27, TOTAL PROTEIN 8.7, TSH 0.052. CARDIAC ENZYMES WNL. LATEST EKG REPORTS SINUS RHYTHM WITH HR OF 68. CHEST XRAY RECOMMENDED A THYROID US TO EVALUATE POSSIBLE THYROID OR NECK MASS. WE OBTAIN THYROID US AND ORDERED A CT OF THE NECK WITH CONTRAST TO EVALUATE. THYROID US REPORED A LARGE MULTINODULAR GOITER GROWTH HYPEREMIA, CONSIDER NULEAR MEDICINE FUNCTION TESTING TO EVALUATE FOR FUNCTIONAL ADENOMA. ENT SURGICAL CONSULTATION RECOMMENDED. PATIENT REFUSED CT OF THE NECK WITH CONTRAST. PATIENT REPORTED THAT SHE WAS ALLERGIC TO IV DYE. IODINE WAS NOT CURRENTLY LISTED ON HER ALLERGY LIST WHEN WE ORDERED SCAN. WE WILL START FORTAZ 1GM IV Q8H TO TREAT MASTOIDITIS. WE PLAN TO RECHECK AM LABS AND FOLLOW UP WITH PATIENT IN THE MORNING. - Past Medical Family Social History Past Med/Fam/Surg Hx: No changes since H&P Allergies: Allergies iodine Allergy (Verified 02/19/17 15:14) Penicillins Allergy (Verified 12/30/16 00:27) Sulfa (Sulfonamide Antibiotics) [SULFA] Allergy (Verified 12/30/16 00:27) - Review of Systems ROS: No change since H&P - Vital Signs and I&O's Vital Signs: Temperature 98.4 F Pulse Rate [Left Brachial] 68 Pulse Rate 72 Respiratory Rate 20 Blood Pressure [Left Arm] 193/96 Blood Pressure 194/110 O2 Sat by Pulse Oximetry 98 Intake and Output: Intake & Output 02/17/17 02/18/17 02/19/17 02/20/17 11:59 11:59 11:59 11:59 Intake Total 1732 600 Output Total 3 Balance 1729 600 - Physical Exam Oriented: Normal Eyes: Normal Ear: Normal Nose: Normal Throat: Normal Respiratory: Normal Cardiovascular: Normal : Normal Auscultation: Bowel Sounds: Normal Palpation: Normal Tenderness: Normal Skin: Normal Musculoskeletal: Normal Psychiatric: Normal Mood Description: Calm Affect: Normal Speech Pattern: Clear - Laboratory and Diagnostics Result Diagrams: 02/19/17 04:15 02/19/17 04:15 Labs: 02/18/17 11:48 Throat Throat Culture - Preliminary Laboratory WBC 4.1 X10^3/uL (3.6-10.0) 02/19/17 04:15 RBC 4.29 X10^6/uL (3.5-5.4) 02/19/17 04:15 Hgb 10.2 g/dL (12.0-16.0) L 02/19/17 04:15 Hct 31.4 % (36.0-47.0) L 02/19/17 04:15 MCV 73.2 fL (80.0-100.0) L 02/19/17 04:15 MCH 23.7 pg (27.0-34.0) L 02/19/17 04:15 MCHC 32.4 g/dL (33.0-35.0) L 02/19/17 04:15 RDW 15.0 % (11.6-16.5) 02/19/17 04:15 Plt Count 419 X10^3/uL (150.0-450.0) 02/19/17 04:15 Plt Count Comment Adequate (ADEQUATE) 02/19/17 04:15 MPV 7.6 fL (7.4-11.0) 02/19/17 04:15 Neut % 77.4 % (42.0-75.0) H 02/19/17 04:15 Lymph % 16.2 % (21.0-51.0) L 02/19/17 04:15 [place] % 6.1 % (0.0-13.0) 02/19/17 04:15 Eos % 0.0 % (0.9-2.9) L 02/19/17 04:15 Baso % 0.3 % (0.2-1.0) 02/19/17 04:15 Neut # 3.1 x10^3/uL (2.2-4.8) 02/19/17 04:15 Lymph # 0.7 X10^3/uL (1.3-2.9) L 02/19/17 04:15 [place] # 0.2 x10^3/uL (0.3-0.8) L 02/19/17 04:15 Eos # 0.0 x10^3/uL (0.0-0.2) 02/19/17 04:15 Baso # 0.0 X10^3/uL (0.0-0.1) 02/19/17 04:15 Absolute Nucleated RBC 0.1 /100WBC 02/19/17 04:15 Plt Morphology Comment Normal (NORMAL) 02/19/17 04:15 RBC Morphology Abnormal (NORMAL) A 02/19/17 04:15 Hypochromasia 1+ A 02/19/17 04:15 Microcytosis 1+ A 02/19/17 04:15 Sodium 138 mmol/L (136-145) 02/19/17 04:15 Corrected Sodium 140 mmol/L (136-145) 02/19/17 04:15 Potassium 4.2 mmol/L (3.5-5.1) 02/19/17 04:15 Chloride 100 mmol/L (98-107) 02/19/17 04:15 Carbon Dioxide 26.9 mmol/L (21-32) 02/19/17 04:15 BUN 22 mg/dL (7-18) H 02/19/17 04:15 Creatinine 1.27 mg/dL (0.55-1.02) H 02/19/17 04:15 Est GFR (MDRD) Af Amer 55 (>60) L 02/19/17 04:15 Est GFR (MDRD) Non-Af 45 (>60) L 02/19/17 04:15 Glucose 184 mg/dL (65-99) H 02/19/17 04:15 POC Glucose (mg/dL) 191 mg/dL (65-99) H 02/19/17 20:12 Calcium 9.4 mg/dL (8.5-10.1) 02/19/17 04:15 Corrected Calcium TNP 02/19/17 04:15 Total Bilirubin 0.20 mg/dL (0.2-1.0) 02/19/17 04:15 AST 18 Units/L (15-37) 02/19/17 04:15 ALT 23 Units/L (12-78) 02/19/17 04:15 Alkaline Phosphatase 62 Units/L (46-116) 02/19/17 04:15 Creatine Kinase 146 Units/L (26-192) 02/19/17 01:14 CK-MB (CK-2) < 1.0 ng/mL (0-4.0) 02/19/17 01:14 CK/CKMB % Calc 0.7 % (<4) 02/19/17 01:14 Troponin I < 0.02 ng/mL (0-1.5) 02/19/17 01:14 Total Protein 8.7 g/dL (6.4-8.2) H 02/19/17 04:15 Albumin 4.1 g/dL (3.4-5.0) 02/19/17 04:15 Globulin 4.6 g/dL (2.5-4.5) H 02/19/17 04:15 Albumin/Globulin Ratio 0.9 Ratio (1.1-2.1) L 02/19/17 04:15 TSH 3rd Generation 0.052 uIU/mL (0.358-3.74) L 02/19/17 04:15 Specimen Type Clean catch urine 02/18/17 12:02 Urine Color Yellow (YELLOW) 02/18/17 12:02 Urine Appearance Clear (CLEAR) 02/18/17 12:02 Urine pH 7.0 (5.0 - 8.0) 02/18/17 12:02 Ur Specific [place] 1.005 (1.000-1.030) 02/18/17 12:02 Urine Protein 3+ (NEGATIVE) 02/18/17 12:02 Urine Glucose (UA) Negative (NEGATIVE) 02/18/17 12:02 Urine Ketones Negative (NEGATIVE) 02/18/17 12:02 Urine Occult Blood Negative (NEGATIVE) 02/18/17 12:02 Urine Nitrite Negative (NEGATIVE) 02/18/17 12:02 Urine Bilirubin Negative (NEGATIVE) 02/18/17 12:02 Urine Urobilinogen Normal (NORMAL) 02/18/17 12:02 Ur Leukocyte Esterase Negative (NEGATIVE) 02/18/17 12:02 Urine RBC 0-1 /HPF (NEGATIVE) 02/18/17 12:02 Urine WBC 0-1 /HPF (NEGATIVE) 02/18/17 12:02 Ur Squamous Epith Cells Few /HPF (NEGATIVE) 02/18/17 12:02 Urine Bacteria Trace /HPF (NEGATIVE) 02/18/17 12:02 Ur Culture Indicated? No/not indicated 02/18/17 12:02 Streptococcus Screen Negative (NEGATIVE) 02/18/17 11:48 - Plan (1) Mastoiditis of right side Status: Acute Plan: FORTAZ 1GM IV Q8H, CONTINUE TO MONITOR (2) Generalized pain Status: Acute Plan: TORADOL 30MG IV Q6H PRN, CONTINUE TO MONITOR (3) Generalized weakness Status: Acute Plan: CONTINUE IV FLUIDS, CHECK LABS, CONTINUE TO MONITOR (4) Neck mass Status: Acute Plan: THYROID US, CONTINUE TO MONITOR
[2017-02-20] MEDS: TORADOL 30 MG VIAL IVP PRN (03:46)
[2017-02-20 05:52] LABS: ALANINE AMINOTRANSFERASE 23 Units/L (12-78); ALBUMIN 3.5 g/dL (3.4-5.0); ALKALINE PHOSPHATASE 52 Units/L (46-116); ASPARTATE AMINO TRANSFERASE 20 Units/L (15-37); BLOOD UREA NITROGEN 21 mg/dL (7-18); CALCIUM 8.8 mg/dL (8.5-10.1); CARBON DIOXIDE 27.4 mmol/L (21-32); CHLORIDE 102 mmol/L (98-107); COR NA(FOR HYPERGLY) 141 mmol/L (136-145); CREATININE 1.08 mg/dL (0.55-1.02); SODIUM 138 mmol/L (136-145); TOTAL PROTEIN 7.6 g/dL (6.4-8.2); eGFR BLACK RACES > 60 (>60); eGFR NON BLACK RACES 55 (>60)
[2017-02-20 06:08] LABS: BASOPHILS % (AUTO) 0.3 % (0.2-1.0); HEMATOCRIT 27.1 % (36.0-47.0); HEMOGLOBIN 8.8 g/dL (12.0-16.0); LYMPHOCYTES # (AUTO) 0.8 X10^3/uL (1.3-2.9); LYMPHOCYTES % (AUTO) 18.7 % (21.0-51.0); MEAN CORPUSCULAR HEMOGLOBIN 24.1 pg (27.0-34.0); MEAN CORPUSCULAR HGB CONC 32.7 g/dL (33.0-35.0); MEAN CORPUSCULAR VOLUME 73.6 fL (80.0-100.0); MEAN PLATELET VOLUME 7.9 fL (7.4-11.0); MONOCYTES # (AUTO) 0.3 x10^3/uL (0.3-0.8); MONOCYTES % (AUTO) 5.6 % (0.0-13.0); NEUTROPHILS # (AUTO) 3.4 x10^3/uL (2.2-4.8); NEUTROPHILS % (AUTO) 75.4 % (42.0-75.0); PLATELET COUNT 335 X10^3/uL (150.0-450.0); RED BLOOD COUNT 3.67 X10^6/uL (3.5-5.4); RED CELL DISTRIBUTION WIDTH 14.6 % (11.6-16.5); WHITE BLOOD COUNT 4.6 X10^3/uL (3.6-10.0)
[2017-02-20] MEDS: SOLU-Medrol 40 MG VIAL IVP SCH ×3 (06:20→22:50)
[2017-02-20] MEDS: FORTAZ or TAZICEF INJ 1 GM in NS 50 ML IV + SPIKE MINIBAG* 50 ML IV SCH ×3 (06:20→22:50)
[2017-02-20] MEDS: HumuLIN R SC PRN (06:24)
[2017-02-20 06:48] LABS: HYPOCHROMASIA SLIGHT; MICROCYTOSIS 2+; PLATELET MORPHOLOGY COMMENT NORMAL (NORMAL); TARGET CELLS PRESENT
[2017-02-20] MEDS: CATAPRES TAB 0.1 MG PO SCH ×2 (07:01→08:18)
[2017-02-20] MEDS: LOPRESSOR TAB 50 MG PO SCH ×3 (07:01→20:17)
[2017-02-20] MEDS ORDERED: FIORICET TAB PO PRN (11:27)
[2017-02-20] MEDS ORDERED: NIFEDIPINE 60 MG PO SCH (11:30)
[2017-02-20] MEDS ORDERED: GLUCOPHAGE ONE ×2 (12:18→20:09)
[2017-02-20] MEDS: APRESOLINE TAB 25 MG PO SCH (12:25)
[2017-02-20] MEDS: CLARITIN PO SCH (12:26)
[2017-02-20] MEDS: ASPIRIN PO SCH (12:26)
[2017-02-20] MEDS: GLUCOPHAGE PO SCH ×2 (12:26→20:19)
[2017-02-20] MEDS: HYDROCHLOROTHIAZIDE 25 MG TAB PO SCH (12:27)
[2017-02-20] MEDS: NORCO 10/325 TAB PO SCH ×3 (12:28→20:18)
[2017-02-20] MEDS: NEURONTIN CAP 100 MG PO SCH ×2 (13:01→22:50)
[2017-02-20] MEDS: NS 1000 ML 1,000 ML IV SCH ×2 (13:04→23:32)
[2017-02-20] MEDS: LANOXIN PO SCH (13:04)
[2017-02-20] MEDS: GLUCOTROL PO SCH (20:16)
[2017-02-20] MEDS: REQUIP PO SCH (20:17)
[2017-02-20] MEDS: XANAX PO PRN (20:18)
[2017-02-20] MEDS: COZAAR PO SCH (20:19)
[2017-02-20] MEDS: ZOCOR TAB 20 MG PO SCH (20:19)
[2017-02-20] MEDS ORDERED: PATIENT'S HOME MEDICATION (Glipizide [Glipizide 10 Mg] 10 MG) PO SCH (21:00)
[2017-02-20] MEDS: SNACK - Diabetic Appropriate PO SCH (23:20)
[2017-02-20] MEDS: PEPCID TAB 20 MG PO SCH (23:32)
[2017-02-20] MEDS: CATAPRES TAB 0.1 MG PO PRN (23:36)
[2017-02-21] MEDS: TORADOL 30 MG VIAL IVP PRN ×2 (00:34→14:03)
[2017-02-21 05:15] LABS: ALANINE AMINOTRANSFERASE 30 Units/L (12-78); ALBUMIN 3.4 g/dL (3.4-5.0); ALKALINE PHOSPHATASE 52 Units/L (46-116); ASPARTATE AMINO TRANSFERASE 20 Units/L (15-37); BLOOD UREA NITROGEN 19 mg/dL (7-18); CALCIUM 8.9 mg/dL (8.5-10.1); CARBON DIOXIDE 26.2 mmol/L (21-32); CHLORIDE 102 mmol/L (98-107); COR NA(FOR HYPERGLY) 142 mmol/L (136-145); CREATININE 1.07 mg/dL (0.55-1.02); SODIUM 139 mmol/L (136-145); TOTAL PROTEIN 7.5 g/dL (6.4-8.2); eGFR BLACK RACES > 60 (>60); eGFR NON BLACK RACES 55 (>60)
[2017-02-21] MEDS ORDERED: MAALOX or MYLANTA PO PRN (05:16)
[2017-02-21 05:24] LABS: BASOPHILS % (AUTO) 0.5 % (0.2-1.0); EOSINOPHILS % (AUTO) 0.3 % (0.9-2.9); HEMATOCRIT 27.9 % (36.0-47.0); HEMOGLOBIN 9.1 g/dL (12.0-16.0); LYMPHOCYTES # (AUTO) 0.8 X10^3/uL (1.3-2.9); LYMPHOCYTES % (AUTO) 16.1 % (21.0-51.0); MEAN CORPUSCULAR HGB CONC 32.5 g/dL (33.0-35.0); MEAN CORPUSCULAR VOLUME 73.8 fL (80.0-100.0); MEAN PLATELET VOLUME 7.7 fL (7.4-11.0); MONOCYTES # (AUTO) 0.2 x10^3/uL (0.3-0.8); MONOCYTES % (AUTO) 3.4 % (0.0-13.0); NEUTROPHILS % (AUTO) 79.7 % (42.0-75.0); PLATELET COUNT 324 X10^3/uL (150.0-450.0); RED BLOOD COUNT 3.78 X10^6/uL (3.5-5.4)
[2017-02-21] MEDS: FORTAZ or TAZICEF INJ 1 GM in NS 50 ML IV + SPIKE MINIBAG* 50 ML IV SCH ×3 (05:30→21:13)
[2017-02-21] MEDS: SOLU-Medrol 40 MG VIAL IVP SCH ×2 (05:30→13:02)
[2017-02-21] MEDS: NEURONTIN CAP 100 MG PO SCH ×3 (05:31→21:10)
[2017-02-21] MEDS: HumuLIN R SC PRN (05:38)
[2017-02-21 05:54] LABS: HYPOCHROMASIA SLIGHT; MICROCYTOSIS 1+; PLATELET MORPHOLOGY COMMENT NORMAL (NORMAL)
[2017-02-21] MEDS ORDERED: GLUCOPHAGE ONE ×2 (08:42→21:01)
[2017-02-21] MEDS: CLARITIN PO SCH (08:54)
[2017-02-21] MEDS: GLUCOPHAGE PO SCH ×2 (08:54→21:10)
[2017-02-21] MEDS: LANOXIN PO SCH (08:54)
[2017-02-21] MEDS: APRESOLINE TAB 25 MG PO SCH (08:54)
[2017-02-21] MEDS: HYDROCHLOROTHIAZIDE 25 MG TAB PO SCH (08:54)
[2017-02-21] MEDS: GLUCOTROL PO SCH ×2 (08:54→21:09)
[2017-02-21] MEDS: ASPIRIN PO SCH (08:54)
[2017-02-21] MEDS: PEPCID TAB 20 MG PO SCH ×2 (08:55→21:12)
[2017-02-21] MEDS: LOPRESSOR TAB 50 MG PO SCH ×2 (08:55→21:12)
[2017-02-21] MEDS: PROCARDIA XL PO SCH (08:55)
[2017-02-21] MEDS: MICRO K EXTEN CAP 10 MEQ PO SCH (08:55)
[2017-02-21] MEDS: NORCO 10/325 TAB PO SCH ×4 (08:55→21:12)
[2017-02-21] MEDS ORDERED: PATIENT'S HOME MEDICATION (Potassium Chloride [K-Tab Er] 1 TAB) PO SCH (09:00)
[2017-02-21] MEDS: ZOCOR TAB 20 MG PO SCH (21:09)
[2017-02-21] MEDS: XANAX PO PRN (21:10)
[2017-02-21] MEDS: REQUIP PO SCH (21:11)
[2017-02-21] MEDS: COZAAR PO SCH (21:11)
[2017-02-21] MEDS: SNACK - Diabetic Appropriate PO SCH (21:14)
[2017-02-21] MEDS: CATAPRES TAB 0.1 MG PO PRN (23:11)
[2017-02-22] MEDS: TORADOL 30 MG VIAL IVP PRN ×2 (00:33→10:10)
[2017-02-22 05:25] LABS: BASOPHILS # (AUTO) 0.1 X10^3/uL (0.0-0.1); BASOPHILS % (AUTO) 1.4 % (0.2-1.0); EOSINOPHILS # (AUTO) 0.1 x10^3/uL (0.0-0.2); EOSINOPHILS % (AUTO) 1.9 % (0.9-2.9); HEMATOCRIT 29.2 % (36.0-47.0); HEMOGLOBIN 9.6 g/dL (12.0-16.0); LYMPHOCYTES # (AUTO) 2.4 X10^3/uL (1.3-2.9); LYMPHOCYTES % (AUTO) 39.8 % (21.0-51.0); MEAN CORPUSCULAR HGB CONC 32.9 g/dL (33.0-35.0); MEAN CORPUSCULAR VOLUME 72.8 fL (80.0-100.0); MEAN PLATELET VOLUME 7.4 fL (7.4-11.0); MONOCYTES # (AUTO) 0.6 x10^3/uL (0.3-0.8); MONOCYTES % (AUTO) 9.6 % (0.0-13.0); NEUTROPHILS # (AUTO) 2.9 x10^3/uL (2.2-4.8); NEUTROPHILS % (AUTO) 47.3 % (42.0-75.0); PLATELET COUNT 372 X10^3/uL (150.0-450.0); RED BLOOD COUNT 4.01 X10^6/uL (3.5-5.4); RED CELL DISTRIBUTION WIDTH 14.7 % (11.6-16.5); WHITE BLOOD COUNT 6.1 X10^3/uL (3.6-10.0)
[2017-02-22 05:47] LABS: HYPOCHROMASIA SLIGHT; MICROCYTOSIS 1+; PLATELET MORPHOLOGY COMMENT NORMAL (NORMAL)
[2017-02-22 05:49] LABS: ALANINE AMINOTRANSFERASE 27 Units/L (12-78); ALBUMIN 3.4 g/dL (3.4-5.0); ALKALINE PHOSPHATASE 54 Units/L (46-116); ASPARTATE AMINO TRANSFERASE 17 Units/L (15-37); BLOOD UREA NITROGEN 16 mg/dL (7-18); CALCIUM 9.2 mg/dL (8.5-10.1); CARBON DIOXIDE 31.1 mmol/L (21-32); CHLORIDE 102 mmol/L (98-107); COR NA(FOR HYPERGLY) 141 mmol/L (136-145); CREATININE 0.97 mg/dL (0.55-1.02); SODIUM 140 mmol/L (136-145); TOTAL PROTEIN 7.6 g/dL (6.4-8.2); eGFR BLACK RACES > 60 (>60); eGFR NON BLACK RACES > 60 (>60)
[2017-02-22] MEDS: NEURONTIN CAP 100 MG PO SCH ×3 (05:54→21:06)
[2017-02-22] MEDS: FORTAZ or TAZICEF INJ 1 GM in NS 50 ML IV + SPIKE MINIBAG* 50 ML IV SCH ×3 (05:54→21:30)
[2017-02-22] MEDS: NS 1000 ML 1,000 ML IV SCH ×2 (07:10→16:14)
[2017-02-22] MEDS ORDERED: GLUCOPHAGE ONE ×2 (07:51→20:48)
[2017-02-22] MEDS: PROCARDIA XL PO SCH (08:05)
[2017-02-22] MEDS: GLUCOPHAGE PO SCH ×2 (08:05→21:08)
[2017-02-22] MEDS: APRESOLINE TAB 25 MG PO SCH (08:05)
[2017-02-22] MEDS: ASPIRIN PO SCH (08:05)
[2017-02-22] MEDS: HYDROCHLOROTHIAZIDE 25 MG TAB PO SCH (08:05)
[2017-02-22] MEDS: GLUCOTROL PO SCH ×2 (08:05→21:07)
[2017-02-22] MEDS: LOPRESSOR TAB 50 MG PO SCH ×2 (08:05→21:06)
[2017-02-22] MEDS: PEPCID TAB 20 MG PO SCH ×2 (08:05→21:07)
[2017-02-22] MEDS: LANOXIN PO SCH (08:05)
[2017-02-22] MEDS: CLARITIN PO SCH (08:05)
[2017-02-22] MEDS: MICRO K EXTEN CAP 10 MEQ PO SCH (08:05)
[2017-02-22] MEDS: NORCO 10/325 TAB PO SCH ×4 (08:40→21:13)
[2017-02-22] MEDS ORDERED: ZOFRAN INJ 4 MG VIAL IVP PRN (14:36)
[2017-02-22] MEDS: ZOCOR TAB 20 MG PO SCH (21:06)
[2017-02-22] MEDS: XANAX PO PRN (21:08)
[2017-02-22] MEDS: COZAAR PO SCH (21:08)
[2017-02-22] MEDS: CATAPRES TAB 0.1 MG PO SCH (21:09)
[2017-02-22] MEDS: SNACK - Diabetic Appropriate PO SCH (21:12)
[2017-02-22] MEDS: REQUIP PO SCH (21:15)
[2017-02-22] MEDS ORDERED: FORTAZ or TAZICEF INJ ONE (21:23)
[2017-02-22] MEDS ORDERED: NS 50 ML IV 50 ML IV ONE (21:23)
[2017-02-22] MEDS: HumuLIN R SC PRN (21:30)
--- NOTE | 2017-02-22 21:47 | PCM.PROG ---
Progress Note - Progress Note for Day of Date: 02/20/17 - Subjective Subjective: WAS ADMITTED FOR MASTOIDITIS, GENERALIZED WEAKNESS, AND GENERALIZED PAIN. SHE IS LYING IN BED WITH EYES CLOSED. SHE AWAKENS TO VERBAL STIMULI. SHE CONTINUES WITH COMPLAINTS OF ACHING ALL OVER AND WEAKNESS. ON EXAMINATION, LUNGS ARE NOTED CLEAR TO AUSCULTATION. ABDOMEN IS SOFT, ROUND, AND NON-TENDER. BOWEL SOUNDS ARE NOTED NORMAL IN ALL QUADRANTS. VITAL SIGNS THIS MORNING ARE 97.9-57-18-98%-172/84. CBC AND CMP WERE OBTAINED. ABNORMAL LAB VALUES INCLUDE HGB 8.8, HCT 27.1, BUN 21, CREATININE 1.08, GLUCOSE 221. WE REVIEWED AND RESTARTED PATIENTS HOME MEDICATIONS. WE WILL ORDER A FREE T4 AND CHECK AN OVERNIGHT PULSE OX. OTHERWISE, WE WILL CONTINUE WITH CURRENT PLAN OF CARE. WE PLAN TO RECHECK CBC AND CMP IN THE MORNING AND CONTINUE TO FOLLOW UP WITH PATIENT. - Past Medical Family Social History Past Med/Fam/Surg Hx: No changes since H&P Allergies: Allergies iodine Allergy (Verified 02/19/17 15:14) Penicillins Allergy (Verified 12/30/16 00:27) Sulfa (Sulfonamide Antibiotics) [SULFA] Allergy (Verified 12/30/16 00:27) - Review of Systems ROS: No change since H&P - Vital Signs and I&O's Vital Signs: Temperature 97.3 F Pulse Rate [Left Brachial] 86 Pulse Rate 69 Respiratory Rate 20 Blood Pressure [Left Arm] 186/84 Blood Pressure 194/110 O2 Sat by Pulse Oximetry 98 Intake and Output: Intake & Output 02/20/17 02/21/17 02/22/17 02/23/17 11:59 11:59 11:59 11:59 Intake Total 2460 3390 3120 1260 Balance 2460 3390 3120 1260 - Physical Exam Oriented: Normal Eyes: Normal Ear: Normal Nose: Normal Throat: Normal Respiratory: Normal Cardiovascular: Normal : Normal Auscultation: Bowel Sounds: Normal Palpation: Normal Tenderness: Normal Skin: Normal Musculoskeletal: Normal Psychiatric: Normal Mood Description: Calm Affect: Normal Speech Pattern: Clear, Appropriate - Laboratory and Diagnostics Result Diagrams: 02/22/17 04:00 02/22/17 04:00 Labs: 02/18/17 11:48 Throat Throat Culture - Final Laboratory WBC 6.1 X10^3/uL (3.6-10.0) 02/22/17 04:00 RBC 4.01 X10^6/uL (3.5-5.4) 02/22/17 04:00 Hgb 9.6 g/dL (12.0-16.0) L 02/22/17 04:00 Hct 29.2 % (36.0-47.0) L 02/22/17 04:00 MCV 72.8 fL (80.0-100.0) L 02/22/17 04:00 MCH 24.0 pg (27.0-34.0) L 02/22/17 04:00 MCHC 32.9 g/dL (33.0-35.0) L 02/22/17 04:00 RDW 14.7 % (11.6-16.5) 02/22/17 04:00 Plt Count 372 X10^3/uL (150.0-450.0) 02/22/17 04:00 Plt Count Comment Adequate (ADEQUATE) 02/22/17 04:00 MPV 7.4 fL (7.4-11.0) 02/22/17 04:00 Neut % 47.3 % (42.0-75.0) 02/22/17 04:00 Lymph % 39.8 % (21.0-51.0) 02/22/17 04:00 [place] % 9.6 % (0.0-13.0) 02/22/17 04:00 Eos % 1.9 % (0.9-2.9) 02/22/17 04:00 Baso % 1.4 % (0.2-1.0) H 02/22/17 04:00 Neut # 2.9 x10^3/uL (2.2-4.8) 02/22/17 04:00 Lymph # 2.4 X10^3/uL (1.3-2.9) 02/22/17 04:00 [place] # 0.6 x10^3/uL (0.3-0.8) 02/22/17 04:00 Eos # 0.1 x10^3/uL (0.0-0.2) 02/22/17 04:00 Baso # 0.1 X10^3/uL (0.0-0.1) 02/22/17 04:00 Absolute Nucleated RBC 0.1 /100WBC 02/22/17 04:00 Plt Morphology Comment Normal (NORMAL) 02/22/17 04:00 RBC Morphology Abnormal (NORMAL) A 02/22/17 04:00 Hypochromasia Slight A 02/22/17 04:00 Microcytosis 1+ A 02/22/17 04:00 Target Cells Present 02/20/17 04:10 Sodium 140 mmol/L (136-145) 02/22/17 04:00 Corrected Sodium 141 mmol/L (136-145) 02/22/17 04:00 Potassium 3.5 mmol/L (3.5-5.1) 02/22/17 04:00 Chloride 102 mmol/L (98-107) 02/22/17 04:00 Carbon Dioxide 31.1 mmol/L (21-32) 02/22/17 04:00 BUN 16 mg/dL (7-18) 02/22/17 04:00 Creatinine 0.97 mg/dL (0.55-1.02) 02/22/17 04:00 Est GFR (MDRD) Af Amer > 60 (>60) 02/22/17 04:00 Est GFR (MDRD) Non-Af > 60 (>60) 02/22/17 04:00 Glucose 144 mg/dL (65-99) H 02/22/17 04:00 POC Glucose (mg/dL) 192 mg/dL (65-99) H 02/22/17 21:13 Calcium 9.2 mg/dL (8.5-10.1) 02/22/17 04:00 Corrected Calcium TNP 02/22/17 04:00 Total Bilirubin 0.10 mg/dL (0.2-1.0) L 02/22/17 04:00 AST 17 Units/L (15-37) 02/22/17 04:00 ALT 27 Units/L (12-78) 02/22/17 04:00 Alkaline Phosphatase 54 Units/L (46-116) 02/22/17 04:00 Creatine Kinase 146 Units/L (26-192) 02/19/17 01:14 CK-MB (CK-2) < 1.0 ng/mL (0-4.0) 02/19/17 01:14 CK/CKMB % Calc 0.7 % (<4) 02/19/17 01:14 Troponin I < 0.02 ng/mL (0-1.5) 02/19/17 01:14 Total Protein 7.6 g/dL (6.4-8.2) 02/22/17 04:00 Albumin 3.4 g/dL (3.4-5.0) 02/22/17 04:00 Globulin 4.2 g/dL (2.5-4.5) 02/22/17 04:00 Albumin/Globulin Ratio 0.8 Ratio (1.1-2.1) L 02/22/17 04:00 Free T4 1.01 ng/dL (0.76-1.46) 02/20/17 04:10 TSH 3rd Generation 0.052 uIU/mL (0.358-3.74) L 02/19/17 04:15 Specimen Type Clean catch urine 02/18/17 12:02 Urine Color Yellow (YELLOW) 02/18/17 12:02 Urine Appearance Clear (CLEAR) 02/18/17 12:02 Urine pH 7.0 (5.0 - 8.0) 02/18/17 12:02 Ur Specific [place] 1.005 (1.000-1.030) 02/18/17 12:02 Urine Protein 3+ (NEGATIVE) 02/18/17 12:02 Urine Glucose (UA) Negative (NEGATIVE) 02/18/17 12:02 Urine Ketones Negative (NEGATIVE) 02/18/17 12:02 Urine Occult Blood Negative (NEGATIVE) 02/18/17 12:02 Urine Nitrite Negative (NEGATIVE) 02/18/17 12:02 Urine Bilirubin Negative (NEGATIVE) 02/18/17 12:02 Urine Urobilinogen Normal (NORMAL) 02/18/17 12:02 Ur Leukocyte Esterase Negative (NEGATIVE) 02/18/17 12:02 Urine RBC 0-1 /HPF (NEGATIVE) 02/18/17 12:02 Urine WBC 0-1 /HPF (NEGATIVE) 02/18/17 12:02 Ur Squamous Epith Cells Few /HPF (NEGATIVE) 02/18/17 12:02 Urine Bacteria Trace /HPF (NEGATIVE) 02/18/17 12:02 Ur Culture Indicated? No/not indicated 02/18/17 12:02 Digoxin < 0.20 ng/mL (0.9-2) L 02/20/17 04:10 Streptococcus Screen Negative (NEGATIVE) 02/18/17 11:48 - Plan (1) Mastoiditis of right side Status: Acute Plan: FORTAZ 1GM IV Q8H, CONTINUE TO MONITOR (2) Generalized pain Status: Acute Plan: TORADOL 30MG IV Q6H PRN, CONTINUE TO MONITOR (3) Generalized weakness Status: Acute Plan: CONTINUE IV FLUIDS, CHECK LABS, CONTINUE TO MONITOR (4) Neck mass Status: Acute Plan: THYROID US, CONTINUE TO MONITOR
--- NOTE | 2017-02-22 21:48 | PCM.PROG ---
Progress Note - Progress Note for Day of Date: 02/21/17 - Subjective Subjective: WAS ADMITTED FOR MASTOIDITIS, GENERALIZED WEAKNESS, AND GENERALIZED PAIN. SHE IS ALERT AND ORIENTED, SITTING IN HIGH FOWLERS POSITION ON MORNING ROUNDS. TODAY, SHE IS NOTED WITH COMPLAINTS OF HEADACHE AND BODY ACHES. ON EXAMINATION, LUNGS ARE NOTED CLEAR TO AUSCULTATION. ABDOMEN IS SOFT, ROUND, AND NON-TENDER. BOWEL SOUNDS ARE NOTED NORMAL IN ALL QUADRANTS. VITAL SOUNDS THIS MORNING ARE 96.8-70-20-97%-192/104. CBC AND CMP WERE OBTAINED. ABNORMAL LAB VALUES INCLUDE HGB 9.1, HCT 27.9, BUN 19, CREATININE 1.07, GLUCOSE 208, FREE T4 1.01. PATIENTS BLOOD PRESSURE REMAINS ELEVATED DESPITE RESTARTING BLOOD PRESSURE MEDICATIONS. WE WILL INCREASE CLONIDINE TO 0.1MG PO TID. WE WILL CONTINUE WITH CURRENT PLAN OF CARE AND CONTINUE TO TREAT FOR MASTOIDITIS. WE PLAN TO RECHECK CBC AND CMP IN THE MORNING AND CONTINUE TO MONITOR PATIENT. - Past Medical Family Social History Past Med/Fam/Surg Hx: No changes since H&P Allergies: Allergies iodine Allergy (Verified 02/19/17 15:14) Penicillins Allergy (Verified 12/30/16 00:27) Sulfa (Sulfonamide Antibiotics) [SULFA] Allergy (Verified 12/30/16 00:27) - Review of Systems ROS: No change since H&P - Vital Signs and I&O's Vital Signs: Temperature 97.3 F Pulse Rate [Left Brachial] 86 Pulse Rate 69 Respiratory Rate 20 Blood Pressure [Left Arm] 186/84 Blood Pressure 194/110 O2 Sat by Pulse Oximetry 98 Intake and Output: Intake & Output 02/20/17 02/21/17 02/22/17 02/23/17 11:59 11:59 11:59 11:59 Intake Total 2460 3390 3120 1260 Balance 2460 3390 3120 1260 - Physical Exam Oriented: Normal Eyes: Normal Ear: Normal Nose: Normal Throat: Normal Respiratory: Normal Cardiovascular: Normal : Normal Auscultation: Bowel Sounds: Normal Palpation: Normal Tenderness: Normal Skin: Normal Musculoskeletal: Normal Psychiatric: Normal Mood Description: Calm Affect: Normal Speech Pattern: Clear, Appropriate - Laboratory and Diagnostics Result Diagrams: 02/22/17 04:00 02/22/17 04:00 Labs: 02/18/17 11:48 Throat Throat Culture - Final Laboratory WBC 6.1 X10^3/uL (3.6-10.0) 02/22/17 04:00 RBC 4.01 X10^6/uL (3.5-5.4) 02/22/17 04:00 Hgb 9.6 g/dL (12.0-16.0) L 02/22/17 04:00 Hct 29.2 % (36.0-47.0) L 02/22/17 04:00 MCV 72.8 fL (80.0-100.0) L 02/22/17 04:00 MCH 24.0 pg (27.0-34.0) L 02/22/17 04:00 MCHC 32.9 g/dL (33.0-35.0) L 02/22/17 04:00 RDW 14.7 % (11.6-16.5) 02/22/17 04:00 Plt Count 372 X10^3/uL (150.0-450.0) 02/22/17 04:00 Plt Count Comment Adequate (ADEQUATE) 02/22/17 04:00 MPV 7.4 fL (7.4-11.0) 02/22/17 04:00 Neut % 47.3 % (42.0-75.0) 02/22/17 04:00 Lymph % 39.8 % (21.0-51.0) 02/22/17 04:00 [place] % 9.6 % (0.0-13.0) 02/22/17 04:00 Eos % 1.9 % (0.9-2.9) 02/22/17 04:00 Baso % 1.4 % (0.2-1.0) H 02/22/17 04:00 Neut # 2.9 x10^3/uL (2.2-4.8) 02/22/17 04:00 Lymph # 2.4 X10^3/uL (1.3-2.9) 02/22/17 04:00 [place] # 0.6 x10^3/uL (0.3-0.8) 02/22/17 04:00 Eos # 0.1 x10^3/uL (0.0-0.2) 02/22/17 04:00 Baso # 0.1 X10^3/uL (0.0-0.1) 02/22/17 04:00 Absolute Nucleated RBC 0.1 /100WBC 02/22/17 04:00 Plt Morphology Comment Normal (NORMAL) 02/22/17 04:00 RBC Morphology Abnormal (NORMAL) A 02/22/17 04:00 Hypochromasia Slight A 02/22/17 04:00 Microcytosis 1+ A 02/22/17 04:00 Target Cells Present 02/20/17 04:10 Sodium 140 mmol/L (136-145) 02/22/17 04:00 Corrected Sodium 141 mmol/L (136-145) 02/22/17 04:00 Potassium 3.5 mmol/L (3.5-5.1) 02/22/17 04:00 Chloride 102 mmol/L (98-107) 02/22/17 04:00 Carbon Dioxide 31.1 mmol/L (21-32) 02/22/17 04:00 BUN 16 mg/dL (7-18) 02/22/17 04:00 Creatinine 0.97 mg/dL (0.55-1.02) 02/22/17 04:00 Est GFR (MDRD) Af Amer > 60 (>60) 02/22/17 04:00 Est GFR (MDRD) Non-Af > 60 (>60) 02/22/17 04:00 Glucose 144 mg/dL (65-99) H 02/22/17 04:00 POC Glucose (mg/dL) 192 mg/dL (65-99) H 02/22/17 21:13 Calcium 9.2 mg/dL (8.5-10.1) 02/22/17 04:00 Corrected Calcium TNP 02/22/17 04:00 Total Bilirubin 0.10 mg/dL (0.2-1.0) L 02/22/17 04:00 AST 17 Units/L (15-37) 02/22/17 04:00 ALT 27 Units/L (12-78) 02/22/17 04:00 Alkaline Phosphatase 54 Units/L (46-116) 02/22/17 04:00 Creatine Kinase 146 Units/L (26-192) 02/19/17 01:14 CK-MB (CK-2) < 1.0 ng/mL (0-4.0) 02/19/17 01:14 CK/CKMB % Calc 0.7 % (<4) 02/19/17 01:14 Troponin I < 0.02 ng/mL (0-1.5) 02/19/17 01:14 Total Protein 7.6 g/dL (6.4-8.2) 02/22/17 04:00 Albumin 3.4 g/dL (3.4-5.0) 02/22/17 04:00 Globulin 4.2 g/dL (2.5-4.5) 02/22/17 04:00 Albumin/Globulin Ratio 0.8 Ratio (1.1-2.1) L 02/22/17 04:00 Free T4 1.01 ng/dL (0.76-1.46) 02/20/17 04:10 TSH 3rd Generation 0.052 uIU/mL (0.358-3.74) L 02/19/17 04:15 Specimen Type Clean catch urine 02/18/17 12:02 Urine Color Yellow (YELLOW) 02/18/17 12:02 Urine Appearance Clear (CLEAR) 02/18/17 12:02 Urine pH 7.0 (5.0 - 8.0) 02/18/17 12:02 Ur Specific [place] 1.005 (1.000-1.030) 02/18/17 12:02 Urine Protein 3+ (NEGATIVE) 02/18/17 12:02 Urine Glucose (UA) Negative (NEGATIVE) 02/18/17 12:02 Urine Ketones Negative (NEGATIVE) 02/18/17 12:02 Urine Occult Blood Negative (NEGATIVE) 02/18/17 12:02 Urine Nitrite Negative (NEGATIVE) 02/18/17 12:02 Urine Bilirubin Negative (NEGATIVE) 02/18/17 12:02 Urine Urobilinogen Normal (NORMAL) 02/18/17 12:02 Ur Leukocyte Esterase Negative (NEGATIVE) 02/18/17 12:02 Urine RBC 0-1 /HPF (NEGATIVE) 02/18/17 12:02 Urine WBC 0-1 /HPF (NEGATIVE) 02/18/17 12:02 Ur Squamous Epith Cells Few /HPF (NEGATIVE) 02/18/17 12:02 Urine Bacteria Trace /HPF (NEGATIVE) 02/18/17 12:02 Ur Culture Indicated? No/not indicated 02/18/17 12:02 Digoxin < 0.20 ng/mL (0.9-2) L 02/20/17 04:10 Streptococcus Screen Negative (NEGATIVE) 02/18/17 11:48 - Plan (1) Mastoiditis of right side Status: Acute Plan: FORTAZ 1GM IV Q8H, CONTINUE TO MONITOR (2) Generalized pain Status: Acute Plan: TORADOL 30MG IV Q6H PRN, CONTINUE TO MONITOR (3) Generalized weakness Status: Acute Plan: CONTINUE IV FLUIDS, CHECK LABS, CONTINUE TO MONITOR (4) Neck mass Status: Acute Plan: THYROID US, CONTINUE TO MONITOR
[2017-02-23] MEDS: NS 1000 ML 1,000 ML IV SCH ×2 (05:04→07:50)
[2017-02-23] MEDS ORDERED: FORTAZ or TAZICEF INJ ONE (05:23)
[2017-02-23] MEDS ORDERED: NS 50 ML IV 50 ML IV ONE (05:23)
[2017-02-23 05:31] LABS: ALANINE AMINOTRANSFERASE 20 Units/L (12-78); ALBUMIN 3.2 g/dL (3.4-5.0); ALKALINE PHOSPHATASE 53 Units/L (46-116); ASPARTATE AMINO TRANSFERASE 11 Units/L (15-37); BLOOD UREA NITROGEN 19 mg/dL (7-18); CARBON DIOXIDE 28.5 mmol/L (21-32); CHLORIDE 102 mmol/L (98-107); COR CA(FOR HYPOALB) 9.6 mg/dL (8.5-10.1); CREATININE 0.92 mg/dL (0.55-1.02); SODIUM 139 mmol/L (136-145); TOTAL PROTEIN 7.1 g/dL (6.4-8.2); eGFR BLACK RACES > 60 (>60); eGFR NON BLACK RACES > 60 (>60)
[2017-02-23] MEDS: NEURONTIN CAP 100 MG PO SCH (05:48)
[2017-02-23] MEDS: CATAPRES TAB 0.1 MG PO SCH (05:48)
[2017-02-23] MEDS: FORTAZ or TAZICEF INJ 1 GM in NS 50 ML IV + SPIKE MINIBAG* 50 ML IV SCH (05:49)
[2017-02-23] MEDS: HumuLIN R SC PRN (05:50)
[2017-02-23 06:09] LABS: BASOPHILS # (AUTO) 0.1 X10^3/uL (0.0-0.1); BASOPHILS % (AUTO) 1.1 % (0.2-1.0); EOSINOPHILS # (AUTO) 0.2 x10^3/uL (0.0-0.2); HEMATOCRIT 28.6 % (36.0-47.0); HEMOGLOBIN 9.5 g/dL (12.0-16.0); LYMPHOCYTES # (AUTO) 2.3 X10^3/uL (1.3-2.9); LYMPHOCYTES % (AUTO) 37.5 % (21.0-51.0); MEAN CORPUSCULAR HEMOGLOBIN 24.1 pg (27.0-34.0); MEAN CORPUSCULAR HGB CONC 33.2 g/dL (33.0-35.0); MEAN CORPUSCULAR VOLUME 72.5 fL (80.0-100.0); MEAN PLATELET VOLUME 7.4 fL (7.4-11.0); MONOCYTES # (AUTO) 0.5 x10^3/uL (0.3-0.8); MONOCYTES % (AUTO) 7.7 % (0.0-13.0); NEUTROPHILS # (AUTO) 3.1 x10^3/uL (2.2-4.8); NEUTROPHILS % (AUTO) 50.7 % (42.0-75.0); PLATELET COUNT 374 X10^3/uL (150.0-450.0); RED BLOOD COUNT 3.94 X10^6/uL (3.5-5.4); RED CELL DISTRIBUTION WIDTH 15.1 % (11.6-16.5); WHITE BLOOD COUNT 6.2 X10^3/uL (3.6-10.0)
[2017-02-23 06:51] LABS: PLATELET MORPHOLOGY COMMENT NORMAL (NORMAL)
[2017-02-23] MEDS ORDERED: GLUCOPHAGE ONE (08:02)
[2017-02-23] MEDS: GLUCOPHAGE PO SCH (08:43)
[2017-02-23] MEDS: APRESOLINE TAB 25 MG PO SCH (08:43)
[2017-02-23] MEDS: ASPIRIN PO SCH (08:43)
[2017-02-23] MEDS: LANOXIN PO SCH (08:43)
[2017-02-23] MEDS: LOPRESSOR TAB 50 MG PO SCH (08:44)
[2017-02-23] MEDS: HYDROCHLOROTHIAZIDE 25 MG TAB PO SCH (08:44)
[2017-02-23] MEDS: PROCARDIA XL PO SCH (08:44)
[2017-02-23] MEDS: PEPCID TAB 20 MG PO SCH (08:44)
[2017-02-23] MEDS: GLUCOTROL PO SCH (08:45)
[2017-02-23] MEDS: NORCO 10/325 TAB PO SCH (08:45)
[2017-02-23] MEDS: MICRO K EXTEN CAP 10 MEQ PO SCH (08:45)
[2017-02-23] MEDS: CLARITIN PO SCH (08:45)
[2017-02-23 10:55] VITALS: BP 150/87
--- NOTE | 2017-02-23 14:12 | PCM.PROG ---
Progress Note - Progress Note for Day of Date: 02/22/17 - Subjective Subjective: WAS ADMITTED FOR MASTOIDITIS, GENERALIZED WEAKNESS, AND GENERALIZED PAIN. SHE IS ALERT AND ORIENTED, SITTING IN HIGH FOWLERS POSITION ON MORNING ROUNDS. TODAY, SHE CONTINUES WITH COMPLAINTS OF HEADACHE AND BODY ACHES. ON EXAMINATION, LUNGS ARE NOTED CLEAR TO AUSCULTATION. ABDOMEN IS SOFT, ROUND, AND NON-TENDER. BOWEL SOUNDS ARE NOTED NORMAL IN ALL QUADRANTS. VITAL SOUNDS THIS MORNING ARE 97.7-69-20-99%-184/91. CBC AND CMP WERE OBTAINED. ABNORMAL LAB VALUES INCLUDE HGB 9.6, HCT 29.2, BUN 19, GLUCOSE 109, AST 11, ALBUMIN 3.2. WE WILL CONTINUE WITH CURRENT PLAN OF CARE AND CONTINUE TO TREAT FOR MASTOIDITIS. WE PLAN TO RECHECK CBC AND CMP IN THE MORNING AND CONTINUE TO MONITOR PATIENT. WE PLAN TO DISCHARGE IN THE MORNING IF PATIENT REMAINS STABLE. - Past Medical Family Social History Past Med/Fam/Surg Hx: No changes since H&P Allergies: Allergies iodine Allergy (Verified 02/19/17 15:14) Penicillins Allergy (Verified 12/30/16 00:27) Sulfa (Sulfonamide Antibiotics) [SULFA] Allergy (Verified 12/30/16 00:27) - Review of Systems ROS: No change since H&P - Vital Signs and I&O's Vital Signs: Temperature 98.8 F Pulse Rate [Left Brachial] 72 Pulse Rate 72 Respiratory Rate 20 Blood Pressure [Left Arm] 150/87 Blood Pressure 194/110 O2 Sat by Pulse Oximetry 95 Intake and Output: Intake & Output 02/21/17 02/22/17 02/23/17 02/24/17 11:59 11:59 11:59 11:59 Intake Total 3390 3120 1560 Balance 3390 3120 1560 - Physical Exam Oriented: Normal Eyes: Normal Ear: Normal Nose: Normal Throat: Normal Respiratory: Normal Cardiovascular: Normal : Normal Auscultation: Bowel Sounds: Normal Tenderness: Normal Skin: Normal Musculoskeletal: Normal Psychiatric: Normal Mood Description: Calm Affect: Normal Speech Pattern: Clear - Laboratory and Diagnostics Result Diagrams: 02/23/17 04:20 02/23/17 04:20 Labs: 02/18/17 11:48 Throat Throat Culture - Final Laboratory WBC 6.2 X10^3/uL (3.6-10.0) 02/23/17 04:20 RBC 3.94 X10^6/uL (3.5-5.4) 02/23/17 04:20 Hgb 9.5 g/dL (12.0-16.0) L 02/23/17 04:20 Hct 28.6 % (36.0-47.0) L 02/23/17 04:20 MCV 72.5 fL (80.0-100.0) L 02/23/17 04:20 MCH 24.1 pg (27.0-34.0) L 02/23/17 04:20 MCHC 33.2 g/dL (33.0-35.0) 02/23/17 04:20 RDW 15.1 % (11.6-16.5) 02/23/17 04:20 Plt Count 374 X10^3/uL (150.0-450.0) 02/23/17 04:20 Plt Count Comment Adequate (ADEQUATE) 02/23/17 04:20 MPV 7.4 fL (7.4-11.0) 02/23/17 04:20 Neut % 50.7 % (42.0-75.0) 02/23/17 04:20 Lymph % 37.5 % (21.0-51.0) 02/23/17 04:20 [place] % 7.7 % (0.0-13.0) 02/23/17 04:20 Eos % 3.0 % (0.9-2.9) H 02/23/17 04:20 Baso % 1.1 % (0.2-1.0) H 02/23/17 04:20 Neut # 3.1 x10^3/uL (2.2-4.8) 02/23/17 04:20 Lymph # 2.3 X10^3/uL (1.3-2.9) 02/23/17 04:20 [place] # 0.5 x10^3/uL (0.3-0.8) 02/23/17 04:20 Eos # 0.2 x10^3/uL (0.0-0.2) 02/23/17 04:20 Baso # 0.1 X10^3/uL (0.0-0.1) 02/23/17 04:20 Absolute Nucleated RBC 0.1 /100WBC 02/23/17 04:20 Plt Morphology Comment Normal (NORMAL) 02/23/17 04:20 RBC Morphology Normal (NORMAL) 02/23/17 04:20 Hypochromasia Slight A 02/22/17 04:00 Microcytosis 1+ A 02/22/17 04:00 Target Cells Present 02/20/17 04:10 Sodium 139 mmol/L (136-145) 02/23/17 04:20 Corrected Sodium TNP 02/23/17 04:20 Potassium 3.7 mmol/L (3.5-5.1) 02/23/17 04:20 Chloride 102 mmol/L (98-107) 02/23/17 04:20 Carbon Dioxide 28.5 mmol/L (21-32) 02/23/17 04:20 BUN 19 mg/dL (7-18) H 02/23/17 04:20 Creatinine 0.92 mg/dL (0.55-1.02) 02/23/17 04:20 Est GFR (MDRD) Af Amer > 60 (>60) 02/23/17 04:20 Est GFR (MDRD) Non-Af > 60 (>60) 02/23/17 04:20 Glucose 109 mg/dL (65-99) H 02/23/17 04:20 POC Glucose (mg/dL) 127 mg/dL (65-99) H 02/23/17 11:48 Calcium 9.0 mg/dL (8.5-10.1) 02/23/17 04:20 Corrected Calcium 9.6 mg/dL (8.5-10.1) 02/23/17 04:20 Total Bilirubin 0.20 mg/dL (0.2-1.0) 02/23/17 04:20 AST 11 Units/L (15-37) L 02/23/17 04:20 ALT 20 Units/L (12-78) 02/23/17 04:20 Alkaline Phosphatase 53 Units/L (46-116) 02/23/17 04:20 Creatine Kinase 146 Units/L (26-192) 02/19/17 01:14 CK-MB (CK-2) < 1.0 ng/mL (0-4.0) 02/19/17 01:14 CK/CKMB % Calc 0.7 % (<4) 02/19/17 01:14 Troponin I < 0.02 ng/mL (0-1.5) 02/19/17 01:14 Total Protein 7.1 g/dL (6.4-8.2) 02/23/17 04:20 Albumin 3.2 g/dL (3.4-5.0) L 02/23/17 04:20 Globulin 3.9 g/dL (2.5-4.5) 02/23/17 04:20 Albumin/Globulin Ratio 0.8 Ratio (1.1-2.1) L 02/23/17 04:20 Free T4 1.01 ng/dL (0.76-1.46) 02/20/17 04:10 TSH 3rd Generation 0.052 uIU/mL (0.358-3.74) L 02/19/17 04:15 Specimen Type Clean catch urine 02/18/17 12:02 Urine Color Yellow (YELLOW) 02/18/17 12:02 Urine Appearance Clear (CLEAR) 02/18/17 12:02 Urine pH 7.0 (5.0 - 8.0) 02/18/17 12:02 Ur Specific [place] 1.005 (1.000-1.030) 02/18/17 12:02 Urine Protein 3+ (NEGATIVE) 02/18/17 12:02 Urine Glucose (UA) Negative (NEGATIVE) 02/18/17 12:02 Urine Ketones Negative (NEGATIVE) 02/18/17 12:02 Urine Occult Blood Negative (NEGATIVE) 02/18/17 12:02 Urine Nitrite Negative (NEGATIVE) 02/18/17 12:02 Urine Bilirubin Negative (NEGATIVE) 02/18/17 12:02 Urine Urobilinogen Normal (NORMAL) 02/18/17 12:02 Ur Leukocyte Esterase Negative (NEGATIVE) 02/18/17 12:02 Urine RBC 0-1 /HPF (NEGATIVE) 02/18/17 12:02 Urine WBC 0-1 /HPF (NEGATIVE) 02/18/17 12:02 Ur Squamous Epith Cells Few /HPF (NEGATIVE) 02/18/17 12:02 Urine Bacteria Trace /HPF (NEGATIVE) 02/18/17 12:02 Ur Culture Indicated? No/not indicated 02/18/17 12:02 Digoxin < 0.20 ng/mL (0.9-2) L 02/20/17 04:10 Streptococcus Screen Negative (NEGATIVE) 02/18/17 11:48 - Plan (1) Mastoiditis of right side Status: Acute Plan: FORTAZ 1GM IV Q8H, CONTINUE TO MONITOR (2) Generalized pain Status: Acute Plan: TORADOL 30MG IV Q6H PRN, CONTINUE TO MONITOR (3) Generalized weakness Status: Acute Plan: CONTINUE IV FLUIDS, CHECK LABS, CONTINUE TO MONITOR (4) Neck mass Status: Acute Plan: THYROID US, CONTINUE TO MONITOR
== END 2017-02-23 12:55 | disposition home or self-care (01) | DRG 156 ==
LOC: ER 10:57 → MED/SURG 15:19
PROVIDERS: ADMIT Internal Medicine; ATTEND Internal Medicine
DX: H70.891 Other mastoiditis and related conditions, right ear (principal); H92.01 Otalgia, right ear; R53.1 Weakness; R51 Headache; R06.02 Shortness of breath; E04.2 Nontoxic multinodular goiter; R22.1 Localized swelling, mass and lump, neck
CPT/HCPCS: 36415; 70450; 71010; 76536; 80053; 80162; 81001; 82550; 82553; 84439; 84443; 84484; 85025; 87070; 87880; 93005; 93010; 94760; 94762; 96367; 96372; 96374; 96375; 99284; A4222; J0696; J0713; J1815; J1885; J2405; J2920; J2930

== ENCOUNTER 2017-03-20 08:33 | Emergency (ER) | payer MEDICAID ==
[2017-03-20 08:39] VITALS: BP 199/112; BMI 25.1
[2017-03-20] MEDS ORDERED: TORADOL 30 MG VIAL IVP STA (09:11)
[2017-03-20] MEDS ORDERED: TORADOL 30 MG VIAL ONE (09:19)
--- NOTE | 2017-03-20 09:20 | DR.GENAD ---
HPI - PCP Primary Care Physician: JOSH - Complaint/Symptoms Chief Complaint Doctors Comments: Patient is complaining of lower abdominal pain for the past six hours onset at 3-4 am this morning. states she had eaten around ten pm and laid down and started having sharp abdominal pain like her stomach is on fire. states she has had two episodes of this before when she was in the hospital after she passed out about 3-4 weeks ago. She is having fever and chills but denies dysuria, hematuria, diarrhea, cold or cough. states the pain is 10 of 10. She denies tobacco, alcohol or drug usage. States she took her diabetic medicines before she started hurting. She denies any recent trauma. She is a patient of Dr. Munoz. States she has not had any operations. Chief Complaint:: PT C/O LLQ PAIN. PT STATES HER PAIN STARTED THIS AM AROUND 3 AM. PT DENIES N/V/D ONLY SEVERE PAIN. PT ALSO STATES HER ABDOMEN IS SWOLLEN. - Nurses notes reviewed Nurses Notes Review: Yes - Source History Provided: Patient - Mode of Arrival Mode of Arrival: Wheelchair - Timing Onset of Chief Complaint: 03/20/17 Came on: Gradually - Duration Duration: Constant How lon Duration: Hours - Location Location: lower abdominal pain - Modifying Factors Worsens:: nothing Improves:: nothing PMH - PMH Past Medical History: Yes Past Medical History: Anemia, Anxiety, Arthritis, Depression, Diabetes, Hypertension, Hypothyroidism Past Surgical History: Yes Surgical History: No History - Family History History of Family Medical Conditions: Yes Family Medical History: Diabetes Mellitus, Hypertension - Social History Does any household member use tobacco: No Alcohol Use: None Do you use any recreational Drugs:: No Lives With: Family Lives Where: Home - infectious screening In the last 2 months have you had wt loss of >10#?: NO Have you had fever, night sweats or hemotysis?: No Have you traveled outside the country in the last 6 months?: No Isolation: Standard ROS - Review of Systems Constitutional: No Symptoms Reported, Chills, Fever. negative: See HPI, Diaphoresis, Malaise, Weakness, Irritable, Fatigue, Loss of Appetite, Other Eyes: No Symptoms Reported ENTM: No Symptoms Reported Respiratoy: No Symptoms Reported. negative: See HPI, Productive Cough, Non- Productive Cough, Moist Cough, Dry Cough, Hacking Cough, Barking Cough, Brassy Cough, Orthopnea, Short of Breath, Stridor, Wheezing, Hemoptysis, Other Cardiovascular: No Symptoms Reported. negative: See HPI, Chest Pain, Edema, Palpitations, Syncope, Cyanosis, Skin Mottling, Other Gastrointestinal/Abdominal: No Symptoms Reported, Abdominal Pain. negative: See HPI, Constipation, Diarrhea, Nausea, Vomiting, Food Intolerance, Other Genitourinary: No Symptoms Reported. negative: See HPI, Discharge, Dysuria, Frequency, Hematuria, Pain, Bleeding, Other Neurological: No Symptoms Reported Musculoskeletal: No Symptoms Reported. negative: See HPI, Back Pain, Gout, Joint Pain, Joint Swelling, Muscle Pain, Muscle Stiffness, Neck Pain, Right, Left, Neck, Chest wall, Rib(s), Back, Shoulder, Arm, Elbow, Forearm, Wrist, Hand , Pelvis, Hip, Leg, Knee, Ankle, Foot, Other Integumentary: No Symptoms Reported Hematologic/Lymphatic: No Symptoms Reported Endocrine: No Symptoms Reported Psychiatric: No Symptoms Reported PE - Vital Signs Vitals: Temperature 98.5 F Pulse Rate 105 Respiratory Rate 20 Blood Pressure [Left Arm] 150/87 Blood Pressure 199/112 O2 Sat by Pulse Oximetry 96 - General Limitations: No Limitations General Appearance: Alert, In Distress (moderate) - Head Head Exam: Normal Inspection, Atraumatic, Normocephalic - Eyes Eye exam: Normal Appearance, PERRL, EOMI. negative: Scleral Icterus, Conjunctival Injection, Nystagmus, Miosis, Mydrasis, Periorbital Swelling, Periorbital Tenderness, Other - ENT ENT Exam: Normal Exam, Normal Oropharynx, Normal External Ear Exam, Mucous Membranes Moist, TM's Normal Bilaterally External Ear Exam: Normal External Inspection TM/Canal Exam: Bilateral Normal Nose Exam: Normal Nose Exam Mouth Exam: Normal Inspection Throat Exam: Normal Inspection. negative: Tonsillar Erythema, Tonsillomegaly, Tonsillar Exudate, R Peritonsillar Mass, L Peritonsillar Mass, Muffled Voice, Other - Neck Neck Exam: Normal Inspection, Full ROM, Trachea Midline. negative: Tenderness, Meningismus, Lymphadenopathy, Thyromegaly, Other - Chest Chest Inspection: Normal Inspection, Symmetric Chest Wall Rise - Respiratory Respiratory Exam: Normal Lung Sounds Bilat Respiratory Exam: Bilateral Clear to Auscultation - Cardiovascular Cardiovascular Exam: Regular Rate, Normal Rhythm, Normal Heart Sounds. negative : Bradycardia, Tachycardia, Irregular Rhythm, Systolic Murmur, Diastolic Murmur , Rubs, Gallop, Clicks, JVD, +S1, +S2, +S3, +S4, Other - Abdominal Exam Abdominal Exam: Normal Inspection, Normal Bowel Sounds, Soft, Tenderness ( suprapubic tenderness; no rebound), Dimnished Bowel Sounds Abdominal Tenderness: LLQ, Suprapubic, Moderate - Extremities Extremities Exam: Normal Inspection, Full ROM, Normal Capillary Refill. negative: Tenderness, Edema, Joint Swelling, Calf Tenderness, Other - Back Back Exam: Normal Inspection, Full ROM. negative: Tenderness, (R) CVA Tenderness, (L) CVA Tenderness, Muscle Spasm, Paraspinal Tenderness, Vertebral Tenderness, Rashes, (R) Sciatic Notch Tenderness, (L) Sciatic Notch Tendern, (R ) Straight Leg Raise, (L) Straight Leg Raise, Other - Neurologic Neurological Exam: Alert, Oriented X3, CN II-XII Intact, Normal Gait, Reflexes Normal - Psychiatric Psychiatric Exam: Normal Affect, Normal Mood. negative: Depressed, Agitated, Anxious, Flat Affect, Manic, Homicidal Ideation, Suicidal Ideation, Other - Skin Skin Exam: Warm, Dry, Intact, Normal Color ROR - Labs Reviewed Result Diagrams: 03/20/17 09:29 03/20/17 09: Laboratory: WBC 5.0 X10^3/uL (3.6-10.0) 03/20/17 09: RBC 4.11 X10^6/uL (3.5-5.4) 03/20/17: Hgb 9.6 g/dL (12.0-16.0) L 03/20/17: Hct 29.2 % (36.0-47.0) L 03/20/17: MCV 71.0 fL (80.0-100.0) L 03/20/17: MCH 23.4 pg (27.0-34.0) L 03/20/17 09: MCHC 32.9 g/dL (33.0-35.0) L 03/20/17 09: RDW 14.9 % (11.6-16.5) 03/20/17 09: Plt Count 342 X10^3/uL (150.0-450.0) 03/20/17 09: Plt Count Comment Adequate (ADEQUATE) 03/20/17 09: MPV 7.2 fL (7.4-11.0) L 03/20/17 09: Neut % 78.0 % (42.0-75.0) H 03/20/17 09: Lymph % 14.1 % (21.0-51.0) L 03/20/17: [place] % 6.3 % (0.0-13.0) 03/20/17 09: Eos % 1.1 % (0.9-2.9) 03/20/17 09: Baso % 0.5 % (0.2-1.0) 03/20/17 09: Neut # 3.9 x10^3/uL (2.2-4.8) 03/20/17 09: Lymph # 0.7 X10^3/uL (1.3-2.9) L 03/20/17 09: [place] # 0.3 x10^3/uL (0.3-0.8) 03/20/17 09: Eos # 0.1 x10^3/uL (0.0-0.2) 03/20/17 09: Baso # 0.0 X10^3/uL (0.0-0.1) 03/20/17 09: Absolute Nucleated RBC 0.0 /100WBC 03/20/17 09: Plt Morphology Comment Normal (NORMAL) 03/20/17 09: RBC Morphology Abnormal (NORMAL) A 03/20/17 09: Hypochromasia 1+ A 03/20/17 09:29 Microcytosis 1+ A 03/20/17 09:29 Sodium 141 mmol/L (136-145) 03/20/17 09: Corrected Sodium 143 mmol/L (136-145) 03/20/17 09: Potassium 3.6 mmol/L (3.5-5.1) 03/20/17 09: Chloride 102 mmol/L (98-107) 03/20/17 09: Carbon Dioxide 28.0 mmol/L (21-32) 03/20/17 09: BUN 17 mg/dL (7-18) 03/20/17 09:29 Creatinine 1.04 mg/dL (0.55-1.02) H 03/20/17 09:29 Est GFR (MDRD) Af Amer > 60 (>60) 03/20/17 09:29 Est GFR (MDRD) Non-Af 57 (>60) L 03/20/17 09:29 Glucose 196 mg/dL (65-99) H 03/20/17 09:29 Calcium 9.7 mg/dL (8.5-10.1) 03/20/17 09:29 Corrected Calcium TNP 03/20/17 09:29 Total Bilirubin 0.20 mg/dL (0.2-1.0) 03/20/17 09:29 AST 18 Units/L (15-37) 03/20/17 09:29 ALT 15 Units/L (12-78) 03/20/17 09:29 Alkaline Phosphatase 59 Units/L (46-116) 03/20/17 09:29 Total Protein 7.9 g/dL (6.4-8.2) 03/20/17 09:29 Albumin 3.9 g/dL (3.4-5.0) 03/20/17 09:29 Globulin 4.0 g/dL (2.5-4.5) 03/20/17 09:29 Albumin/Globulin Ratio 1.0 Ratio (1.1-2.1) L 03/20/17 09:29 Amylase 36 Units/L (25-115) 03/20/17 09:29 Lipase 93 Units/L (73-393) 03/20/17 09:29 HCG, Qual Negative <10 mIU/mL 03/20/17 09:29 Specimen Type Clean catch urine 03/20/17 09:50 Urine Color Yellow (YELLOW) 03/20/17 09:50 Urine Appearance Clear (CLEAR) 03/20/17 09:50 Urine pH 7.0 (5.0 - 8.0) 03/20/17 09:50 Ur Specific [place] 1.010 (1.000-1.030) 03/20/17 09:50 Urine Protein 3+ (NEGATIVE) 03/20/17 09:50 Urine Glucose (UA) Negative (NEGATIVE) 03/20/17 09:50 Urine Ketones Negative (NEGATIVE) 03/20/17 09:50 Urine Occult Blood 1+ (NEGATIVE) 03/20/17 09:50 Urine Nitrite Negative (NEGATIVE) 03/20/17 09:50 Urine Bilirubin Negative (NEGATIVE) 03/20/17 09:50 Urine Urobilinogen Normal (NORMAL) 03/20/17 09:50 Ur Leukocyte Esterase Negative (NEGATIVE) 03/20/17 09:50 Urine RBC Negative /HPF (NEGATIVE) 03/20/17 09:50 Urine WBC Rare /HPF (NEGATIVE) 03/20/17 09:50 Ur Squamous Epith Cells Rare /HPF (NEGATIVE) 03/20/17 09:50 Urine Bacteria Negative /HPF (NEGATIVE) 03/20/17 09:50 Ur Culture Indicated? No/not indicated 03/20/17 09:50 - Diagnosis Discharge Problem: Umbilical hernia, Diabetes mellitus, Anemia, Essential hypertension Abdominal pain Qualifiers: Abdominal location: periumbilical Qualified Code(s): R10.33 - Periumbilical pain Ventral hernia Qualifiers: Obstruction and gangrene presence: without obstruction or gangrene Qualified Code(s): K43.9 - Ventral hernia without obstruction or gangrene Diverticulosis Qualifiers: Diverticulosis site: diverticulosis of large intestine - Discharge Plan Disposition: HOME, SELF-CARE Condition: Stable Prescriptions: Tramadol HCl [ULTRAM 50 MG *] 50 mg PO BID PRN #12 tab PRN Reason: Pain - Follow ups/Referrals Follow ups/Referrals: Olegario Munoz [Primary Care Provider] - 3 days - Instructions Instructions: Ventral Hernia, Umbilical Hernia, Pediatric, Diverticulosis, Type 2 Diabetes Mellitus, Adult, [id number]
[2017-03-20 09:56] LABS: BASOPHILS % (AUTO) 0.5 % (0.2-1.0); EOSINOPHILS # (AUTO) 0.1 x10^3/uL (0.0-0.2); EOSINOPHILS % (AUTO) 1.1 % (0.9-2.9); HEMATOCRIT 29.2 % (36.0-47.0); HEMOGLOBIN 9.6 g/dL (12.0-16.0); LYMPHOCYTES # (AUTO) 0.7 X10^3/uL (1.3-2.9); LYMPHOCYTES % (AUTO) 14.1 % (21.0-51.0); MEAN CORPUSCULAR HEMOGLOBIN 23.4 pg (27.0-34.0); MEAN CORPUSCULAR HGB CONC 32.9 g/dL (33.0-35.0); MEAN PLATELET VOLUME 7.2 fL (7.4-11.0); MONOCYTES # (AUTO) 0.3 x10^3/uL (0.3-0.8); MONOCYTES % (AUTO) 6.3 % (0.0-13.0); NEUTROPHILS # (AUTO) 3.9 x10^3/uL (2.2-4.8); PLATELET COUNT 342 X10^3/uL (150.0-450.0); RED BLOOD COUNT 4.11 X10^6/uL (3.5-5.4); RED CELL DISTRIBUTION WIDTH 14.9 % (11.6-16.5)
[2017-03-20 10:09] LABS: ALANINE AMINOTRANSFERASE 15 Units/L (12-78); ALBUMIN 3.9 g/dL (3.4-5.0); ALKALINE PHOSPHATASE 59 Units/L (46-116); AMYLASE 36 Units/L (25-115); ASPARTATE AMINO TRANSFERASE 18 Units/L (15-37); BLOOD UREA NITROGEN 17 mg/dL (7-18); CALCIUM 9.7 mg/dL (8.5-10.1); CHLORIDE 102 mmol/L (98-107); COR NA(FOR HYPERGLY) 143 mmol/L (136-145); CREATININE 1.04 mg/dL (0.55-1.02); LIPASE 93 Units/L (73-393); SODIUM 141 mmol/L (136-145); TOTAL PROTEIN 7.9 g/dL (6.4-8.2); eGFR BLACK RACES > 60 (>60); eGFR NON BLACK RACES 57 (>60)
[2017-03-20 10:11] LABS: SERUM PREGNANCY TEST, QUAL NEGATIVE <10 mIU/mL
[2017-03-20 10:19] LABS: HYPOCHROMASIA 1+; PLATELET MORPHOLOGY COMMENT NORMAL (NORMAL)
[2017-03-20 10:20] LABS: MICROCYTOSIS 1+
[2017-03-20 10:23] LABS: BILIRUBIN,URINE NEGATIVE (NEGATIVE); BLOOD/HEMOGLOBIN,URINE 1+ (NEGATIVE); GLUCOSE, URINE NEGATIVE (NEGATIVE); KETONES,URINE NEGATIVE (NEGATIVE); LEUKOCYTE ESTERASE ,URINE NEGATIVE (NEGATIVE); NITRITES,URINE NEGATIVE (NEGATIVE); PROTEIN,URINE 3+ (NEGATIVE); UROBILINOGEN,URINE NORMAL (NORMAL)
[2017-03-20 10:45] LABS: APPEARANCE,URINE CLEAR (CLEAR); BACTERIA,URINE NEGATIVE /HPF (NEGATIVE); COLOR,URINE YELLOW (YELLOW); RBC,URINE NEGATIVE /HPF (NEGATIVE); SQUAMOUS EPITHELIAL CELL,UR RARE /HPF (NEGATIVE)
--- NOTE | 2017-03-20 11:07 | CT ---
STUDY: CT ABDOMEN AND PELVIS WITHOUT IV AND ORAL CONTRAST HISTORY: Severe abdominal pain. Comparison: None. Technique: Multiple axial images of the abdomen and pelvis were obtained from the lung bases to the pubic symphysis without the administration of IV contrast. Findings: The visualized portions of the lung bases are unremarkable. CT abdomen: The liver, gallbladder, spleen, pancreas, kidneys, and adrenal glands are normal in appea mayo. No significant mesenteric lymphadenopathy or inflammatory stranding is appreciated. The stomach is normal in appearance. The small bowel is normal in appearance, without evidence of bow el wall thickening or small bowel obstruction. The terminal ileum, cecum and appendix within normal l imits. There is no evidence of periappendiceal fat stranding. The ascending, transverse and descendin g colon are within normal limits. Incidental note is made of a fat containing umbilical hernia. CT pelvis: There are multiple diverticuli in the sigmoid colon. There is no evidence of diverticuliti s. The rectum is within normal limits. The urinary bladder is normal. No abnormal fluid collections a re identified in the pelvis. There is no evidence of acute osseous abnormality. IMPRESSION: 1. No evidence of acute abdominal or pelvic abnormality. 2. Diverticulosis without evidence of diverticulitis. 3. Fat containing umbilical hernia. Reported By:
== END 2017-03-20 11:44 | disposition home or self-care (01) ==
LOC: ER 08:42
DX: K42.9 Umbilical hernia without obstruction or gangrene (principal); K43.9 Ventral hernia without obstruction or gangrene; K57.90 Diverticulosis of intestine, part unspecified, without perforation or abscess without bleeding; E11.9 Type 2 diabetes mellitus without complications; D64.89 Other specified anemias; I10 Essential (primary) hypertension; R10.33 Periumbilical pain
CPT/HCPCS: 36415; 74176; 80053; 81001; 82150; 83690; 84703; 85025; 96365; 96374; 99283; A4216; A4222; J1885

== ENCOUNTER 2017-05-08 05:08 | Emergency (ER) | payer MEDICAID ==
[2017-05-08 05:22] VITALS: BMI 25.1
[2017-05-08 05:34] VITALS: BP 122/77
--- NOTE | 2017-05-08 05:58 | DR.GENAD ---
HPI - PCP Primary Care Physician: JOSH - Complaint/Symptoms Chief Complaint Doctors Comments: Patient states that she has been dizzy tonight after taking two Fioriocet earlier and she could not get any sleep and took another Fioricet and she was fighting sleep and she did not have any more of her regular pain medicines of Hydrocordone that she takes for her umbilical hernia. States she has headaches and takes the Fioriocet. 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 she denies chest pain. SOB, cold, cough, fever, chills, nausea or vomiting. States she had one her usual headaches. She is not having any problems with her balance. She denies nausea or vomting. States she could not find her pain pills tonight. She has not fallen and is not having any problems with her balance or strength. Chief Complaint:: BLOOD PRESSURE HAS BEEN ELEVATED (158/87 AT LAST CHECK); PT HAS BEEN FEELING DIZZY; PT ALSO HAS "SUGAR PROBLEMS"; Self Treatment fo Chief Complaint: PT TOOK HOME MEDS: HZTZ, HYDRALAZINE, AND PAIN MEDS FOR HEADACHE - Nurses notes reviewed Nurses Notes Review: Yes - Source History Provided: Patient - Mode of Arrival Mode of Arrival: Wheelchair - Timing Onset of Chief Complaint: 05/07/17 Came on: Gradually - Duration Duration: Intermittent How lon Duration: Hours - Location Location: headache - Severity Severity: Mild - Modifying Factors Worsens:: nothing Improves:: nothing PMH - PMH Past Medical History: Yes Past Medical History: Arthritis, Diabetes, Hypertension Past Medical History Comment: UMBILICAL HERNIA; ATRIAL FIB Past Surgical History: No Surgical History: No History - Family History History of Family Medical Conditions: No Family Medical History: Diabetes Mellitus, Hypertension - Social History Do you use any recreational Drugs:: No Lives With: Alone Lives Where: Home - infectious screening In the last 2 months have you had wt loss of >10#?: NO Have you had fever, night sweats or hemotysis?: No Have you traveled outside the country in the last 6 months?: No Isolation: Standard ROS - Review of Systems Constitutional: No Symptoms Reported. negative: See HPI, Chills, Diaphoresis, Fever, Malaise, Weakness, Irritable, Fatigue, Loss of Appetite, Other Eyes: No Symptoms Reported. negative: See HPI, Eye Pain, Blurred Vision, Tearing, Discharge, Photophobia, Diplopia, Other ENTM: No Symptoms Reported Respiratoy: No Symptoms Reported Cardiovascular: No Symptoms Reported. negative: See HPI, Chest Pain, Edema, Palpitations, Syncope, Cyanosis, Skin Mottling, Other Gastrointestinal/Abdominal: No Symptoms Reported. negative: See HPI, Abdominal Pain, Constipation, Diarrhea, Nausea, Vomiting, Food Intolerance, Other Genitourinary: No Symptoms Reported. negative: See HPI, Discharge, Dysuria, Frequency, Hematuria, Pain, Bleeding, Other Neurological: No Symptoms Reported, Headache, Weakness, Dizziness. negative: See HPI, Anxiety, Depressed, Emotional Problems, Numbness, Paresthesia, Pre- existing Deficit, Seizure, Tingling, Tremors, Problems Walking, Speech Problem, Other Musculoskeletal: No Symptoms Reported Integumentary: No Symptoms Reported Endocrine: No Symptoms Reported Psychiatric: No Symptoms Reported PE - Vital Signs Vitals: Temperature 98.1 F Pulse Rate [Left Brachial] 79 Pulse Rate 76 Respiratory Rate 18 Blood Pressure [Left Arm] 122/77 Blood Pressure 122/77 O2 Sat by Pulse Oximetry 99 - General Limitations: No Limitations General Appearance: Alert, In No Apparent Distress - Head Head Exam: Normal Inspection, Atraumatic, Normocephalic - Eyes Eye exam: Normal Appearance, PERRL, EOMI. negative: Scleral Icterus, Conjunctival Injection, Nystagmus, Miosis, Mydrasis, Periorbital Swelling, Periorbital Tenderness, Other - ENT ENT Exam: Normal Exam, Normal Oropharynx, Normal External Ear Exam, Mucous Membranes Moist, TM's Normal Bilaterally External Ear Exam: Normal External Inspection TM/Canal Exam: Bilateral Normal Nose Exam: Normal Nose Exam Mouth Exam: Normal Inspection. negative: Drooling, Trismus, Lip Swelling, Tongue Elevation, Tongue Swelling, Laceration, Other Throat Exam: Normal Inspection - Neck Neck Exam: Normal Inspection, Full ROM, Trachea Midline. negative: Tenderness, Meningismus, Lymphadenopathy, Thyromegaly, Other - Chest Chest Inspection: Normal Inspection, Symmetric Chest Wall Rise - Respiratory Respiratory Exam: Normal Lung Sounds Bilat Respiratory Exam: Bilateral Clear to Auscultation - Cardiovascular Cardiovascular Exam: Regular Rate, Normal Rhythm, Normal Heart Sounds - Abdominal Exam Abdominal Exam: Normal Inspection, Normal Bowel Sounds, Soft, Hernia (6 cm umbilical hernia; reduciable). negative: Distention, Tenderness, Guarding, Rebound, Rigidity, Dimnished Bowel Sounds, Hyperactive Bowel Sounds, Hypoactive Bowel Sounds, Organomegaly, Trauma, Incision, Ascites, Mass, Bruit, Pulsatile Mass, Other Abdominal Tenderness: negative: RUQ, RLQ, LUQ, LLQ, Epigastrium, Suprapubic, Diffuse, Mild, Moderate, Severe, Other - Extremities Extremities Exam: Normal Inspection, Full ROM, Normal Capillary Refill. negative: Tenderness, Edema, Joint Swelling, Calf Tenderness, Other - Back Back Exam: Normal Inspection, Full ROM - Neurologic Neurological Exam: Alert, Oriented X3, CN II-XII Intact, Reflexes Normal. negative: Normal Gait (gait not started) - Psychiatric Psychiatric Exam: Normal Affect, Normal Mood - Skin Skin Exam: Warm, Dry, Intact, Normal Color ROR - Labs Reviewed Laboratory Results Reviewed?: Yes (all labs results reviewed and discussed with patient and sister) Result Diagrams: 05/08/17 06:05 05/08/17 06:05 Laboratory: WBC 3.9 X10^3/uL (3.6-10.0) 05/08/17 06:05 RBC 3.40 X10^6/uL (3.5-5.4) L 05/08/17 06:05 Hgb 8.1 g/dL (12.0-16.0) L 05/08/17 06:05 Hct 24.4 % (36.0-47.0) L 05/08/17 06:05 MCV 71.9 fL (80.0-100.0) L 05/08/17 06:05 MCH 23.8 pg (27.0-34.0) L 05/08/17 06:05 MCHC 33.1 g/dL (33.0-35.0) 05/08/17 06:05 RDW 16.3 % (11.6-16.5) 05/08/17 06:05 Plt Count 264 X10^3/uL (150.0-450.0) 05/08/17 06:05 Plt Count Comment Adequate (ADEQUATE) 05/08/17 06:05 MPV 6.9 fL (7.4-11.0) L 05/08/17 06:05 Neut % 46.1 % (42.0-75.0) 05/08/17 06:05 Lymph % 40.3 % (21.0-51.0) 05/08/17 06:05 [place] % 8.7 % (0.0-13.0) 05/08/17 06:05 Eos % 4.1 % (0.9-2.9) H 05/08/17 06:05 Baso % 0.8 % (0.2-1.0) 05/08/17 06:05 Neut # 1.8 x10^3/uL (2.2-4.8) L 05/08/17 06:05 Lymph # 1.6 X10^3/uL (1.3-2.9) 05/08/17 06:05 [place] # 0.3 x10^3/uL (0.3-0.8) 05/08/17 06:05 Eos # 0.2 x10^3/uL (0.0-0.2) 05/08/17 06:05 Baso # 0.0 X10^3/uL (0.0-0.1) 05/08/17 06:05 Absolute Nucleated RBC 0.2 /100WBC 05/08/17 06:05 Plt Morphology Comment Normal (NORMAL) 05/08/17 06:05 RBC Morphology Abnormal (NORMAL) A 05/08/17 06:05 Hypochromasia Slight A 05/08/17 06:05 Anisocytosis Slight A 05/08/17 06:05 Microcytosis Slight A 05/08/17 06:05 Macrocytosis Slight A 05/08/17 06:05 Sodium 140 mmol/L (136-145) 05/08/17 06:05 Corrected Sodium 140 mmol/L (136-145) 05/08/17 06:05 Potassium 4.0 mmol/L (3.5-5.1) 05/08/17 06:05 Chloride 105 mmol/L (98-107) 05/08/17 06:05 Carbon Dioxide 23.8 mmol/L (21-32) 05/08/17 06:05 BUN 17 mg/dL (7-18) 05/08/17 06:05 Creatinine 0.81 mg/dL (0.55-1.02) 05/08/17 06:05 Est GFR (MDRD) Af Amer > 60 (>60) 05/08/17 06:05 Est GFR (MDRD) Non-Af > 60 (>60) 05/08/17 06:05 Glucose 119 mg/dL (65-99) H 05/08/17 06:05 POC Glucose (mg/dL) 129 mg/dL (65-99) H 05/08/17 05:18 Calcium 8.8 mg/dL (8.5-10.1) 05/08/17 06:05 Corrected Calcium TNP 05/08/17 06:05 Total Bilirubin 0.10 mg/dL (0.2-1.0) L 05/08/17 06:05 AST 12 Units/L (15-37) L 05/08/17 06:05 ALT 15 Units/L (12-78) 05/08/17 06:05 Alkaline Phosphatase 39 Units/L (46-116) L 05/08/17 06:05 Total Protein 6.8 g/dL (6.4-8.2) 05/08/17 06:05 Albumin 3.6 g/dL (3.4-5.0) 05/08/17 06:05 Globulin 3.2 g/dL (2.5-4.5) 05/08/17 06:05 Albumin/Globulin Ratio 1.1 Ratio (1.1-2.1) 05/08/17 06:05 - Diagnosis Discharge Problem: Vertigo, Microcytic anemia, Hyperglycemia, Headache - Discharge Plan Disposition: HOME, SELF-CARE Condition: Stable Prescriptions: Ferrous Sulfate 325 mg PO TID PRN #60 tablet PRN Reason: - Follow ups/Referrals Follow ups/Referrals: Olegario Munoz [Primary Care Provider] - 3 days - Instructions Instructions: Anemia, Nonspecific, Iron Deficiency Anemia, Adult, Iron-Rich Diet, Type 2 Diabetes Mellitus, Adult, [id number], Vertigo, [id number]
[2017-05-08 06:15] LABS: BASOPHILS % (AUTO) 0.8 % (0.2-1.0); EOSINOPHILS # (AUTO) 0.2 x10^3/uL (0.0-0.2); EOSINOPHILS % (AUTO) 4.1 % (0.9-2.9); HEMATOCRIT 24.4 % (36.0-47.0); HEMOGLOBIN 8.1 g/dL (12.0-16.0); LYMPHOCYTES # (AUTO) 1.6 X10^3/uL (1.3-2.9); LYMPHOCYTES % (AUTO) 40.3 % (21.0-51.0); MEAN CORPUSCULAR HEMOGLOBIN 23.8 pg (27.0-34.0); MEAN CORPUSCULAR HGB CONC 33.1 g/dL (33.0-35.0); MEAN CORPUSCULAR VOLUME 71.9 fL (80.0-100.0); MEAN PLATELET VOLUME 6.9 fL (7.4-11.0); MONOCYTES # (AUTO) 0.3 x10^3/uL (0.3-0.8); MONOCYTES % (AUTO) 8.7 % (0.0-13.0); NEUTROPHILS # (AUTO) 1.8 x10^3/uL (2.2-4.8); NEUTROPHILS % (AUTO) 46.1 % (42.0-75.0); PLATELET COUNT 264 X10^3/uL (150.0-450.0); RED CELL DISTRIBUTION WIDTH 16.3 % (11.6-16.5); WHITE BLOOD COUNT 3.9 X10^3/uL (3.6-10.0)
[2017-05-08 06:29] LABS: ALANINE AMINOTRANSFERASE 15 Units/L (12-78); ALBUMIN 3.6 g/dL (3.4-5.0); ALKALINE PHOSPHATASE 39 Units/L (46-116); ASPARTATE AMINO TRANSFERASE 12 Units/L (15-37); BLOOD UREA NITROGEN 17 mg/dL (7-18); CALCIUM 8.8 mg/dL (8.5-10.1); CARBON DIOXIDE 23.8 mmol/L (21-32); CHLORIDE 105 mmol/L (98-107); COR NA(FOR HYPERGLY) 140 mmol/L (136-145); CREATININE 0.81 mg/dL (0.55-1.02); SODIUM 140 mmol/L (136-145); TOTAL PROTEIN 6.8 g/dL (6.4-8.2); eGFR BLACK RACES > 60 (>60); eGFR NON BLACK RACES > 60 (>60)
[2017-05-08 06:49] LABS: ANISOCYTOSIS SLIGHT; HYPOCHROMASIA SLIGHT; MICROCYTOSIS SLIGHT; PLATELET MORPHOLOGY COMMENT NORMAL (NORMAL)
[2017-05-08] MEDS ORDERED: TORADOL 60 MG VIAL IM ONE (07:03)
[2017-05-08] MEDS ORDERED: TORADOL 60 MG VIAL ONE (07:10)
== END 2017-05-08 07:26 | disposition home or self-care (01) ==
LOC: ER 05:08
DX: R42 Dizziness and giddiness (principal); D53.8 Other specified nutritional anemias; R73.9 Hyperglycemia, unspecified; R51 Headache
CPT/HCPCS: 36415; 80053; 85025; 96372; 99282; J1885

== ENCOUNTER 2017-10-06 08:44 | Emergency (ER) | payer MEDICAID ==
--- NOTE | 2017-10-06 08:58 | DR.CP ---
HPI - Time Seen Time seen: 08:55 - PCP Primary Care Physician: JOSH - HPI Comment HPI Comment: HISTORY BELOW. - Complaint Chief Complaint Doctor Comments: PATIENT WITH HISTORY OF A TACHYCARDIA ON SOTOLOL 80MG BID, RAN OUT OF MED 3 DAYS AGO. TODAY EPISODE OF PALPITATION, DIZZINESS AND NEAR SYNCOPAL EPISODE STARTED. BP WAS ELEVATED.AND SHE HAD CHEST PRESSURE. Chief Complaint:: PATIENT STATED THAT SHE WAS IN THE ICU VISITING HER SON WHEN SHE FELT HER HEART START BEATING REALLY FAST AND WAS HAVING SOME CHEST PRESSURE. PATIENT STATED THAT SHE HAS BEEN OUT OF HER SOTALOL FOR THE LAST 3 DAYS AND WAS WAITING TO SEE DR. MORENO. SHE STATED THAT SINCE COMING TO THE ER SHE FEELS LIKE HER HEART RATE HAS CALMED DOWN NOW. - Reviewed Nurses Notes Review: Yes - Source History Provided: Patient - Mode of Arrival Mode of Arrival: Wheelchair - Timing Onset of Chief Complaint: 10/06/17 Came on: Suddenly - Duration Duration: Constant Duration: Hours - Location Location of Chest Pain: Left, Chest Chest Pain Radiation Location: None - Context Onset: At rest Cardiac Risk Factors: HTN History of: Aspirin in last 24 hours Prehospital Care: None - Quality Quality: Pressure like, Heavy - Severity Severity: Moderate - Modifying Factors Worsens: Nothing Impoves: Nothing - Associated Signs and Symptoms Associated Signs and Symptoms: Shortness of Breath, Palpitations PMH - PMH Past Medical History: Yes Past Medical History: Arthritis, Diabetes, Hypertension Past Surgical History: No Surgical History: No History - Family History History of Family Medical Conditions: Yes Family Medical History: Diabetes Mellitus, Hypertension - Social History Does patient currently use any type of tobacco product: No Have you used tobacco products in the last 12 months: No Type of Tobacco Use: None Does any household member use tobacco: No Alcohol Use: None Do you use any recreational Drugs:: No Lives With: Family Lives Where: Home - infectious screening In the last 2 months have you had wt loss of >10#?: NO Have you had fever, night sweats or hemotysis?: No Have you traveled outside the country in the last 6 months?: No Isolation: Standard ROS - Review of Systems Constitutional: No Symptoms Reported Eyes: No Symptoms Reported ENTM: No Symptoms Reported Respiratoy: No Symptoms Reported Cardiovascular: No Symptoms Reported Gastrointestinal/Abdominal: No Symptoms Reported Genitourinary: No Symptoms Reported Neurological: No Symptoms Reported Musculoskeletal: No Symptoms Reported Integumentary: No Symptoms Reported Hematologic/Lymphatic: No Symptoms Reported Endocrine: No Symptoms Reported All Other Systems: Reviewed and Negative PE - Vitals Vitals: Temperature 98.3 F Pulse Rate [Left Radial] 126 Pulse Rate 124 Respiratory Rate 26 Blood Pressure [Left Arm] 167/96 Blood Pressure 178/99 O2 Sat by Pulse Oximetry 99 - General Limitations: No Limitations General Appearance: Alert - Head Head Exam: Normal Inspection - Eyes Eye exam: Normal Appearance - ENT ENT Exam: Normal External Ear Exam - Chest Chest Inspection: Symmetric Chest Wall Rise - Respiratory Respiratory Exam: Normal Lung Sounds Bilat Respiratory Exam: Bilateral Clear to Auscultation - Cardiovascular Cardiovascular Exam: Regular Rate, Normal Rhythm, Normal Heart Sounds Pulse: Normal, Radial, Femoral - Abdominal Exam Abdominal Exam: Normal Bowel Sounds, Soft. negative: Tenderness - Extremities Extremities Exam: Normal Inspection - Back Back Exam: Normal Inspection - Neurologic Neurological Exam: Alert, Oriented X3 - Psychiatric Psychiatric Exam: Normal Affect, Depressed - Skin Skin Exam: Normal Color Course - Treatment Treatment: SEE ORDERS. PO SOTOLOL IN ED. HR DECREASING. - Consultation Consultation Comments: DISCUSS PATIENT WITH DR. MORENO. HE WILL ADMIT PATIENT. - Education/Counseling Education/Counseling: Patient, Education Educated On: Diagnosis, Needs for Follow Up ROR - Labs Reviewed Result Diagrams: 10/06/17 09:12 10/06/17 09:12 Laboratory: WBC 4.7 X10^3/uL (3.6-10.0) 10/06/17 09:12 RBC 4.04 X10^6/uL (3.5-5.4) 10/06/17 09:12 Hgb 9.7 g/dL (12.0-16.0) L 10/06/17 09:12 Hct 29.3 % (36.0-47.0) L 10/06/17 09:12 MCV 72.6 fL (80.0-100.0) L 10/06/17 09:12 MCH 24.1 pg (27.0-34.0) L 10/06/17 09:12 MCHC 33.1 g/dL (33.0-35.0) 10/06/17 09:12 RDW 15.1 % (11.6-16.5) 10/06/17 09:12 Plt Count 335 X10^3/uL (150.0-450.0) 10/06/17 09:12 Plt Count Comment Adequate (ADEQUATE) 10/06/17 09:12 MPV 7.1 fL (7.4-11.0) L 10/06/17 09:12 Neut % (Auto) 40.7 % (42.0-75.0) L 10/06/17 09:12 Lymph % (Auto) 42.8 % (21.0-51.0) 10/06/17 09:12 [place] % (Auto) 12.3 % (0.0-13.0) 10/06/17 09:12 Eos % (Auto) 2.7 % (0.9-2.9) 10/06/17 09:12 Baso % (Auto) 1.5 % (0.2-1.0) H 10/06/17 09:12 Neut # (Auto) 1.9 x10^3/uL (2.2-4.8) L 10/06/17 09:12 Lymph # (Auto) 2.0 X10^3/uL (1.3-2.9) 10/06/17 09:12 [place] # (Auto) 0.6 x10^3/uL (0.3-0.8) 10/06/17 09:12 Eos # (Auto) 0.1 x10^3/uL (0.0-0.2) 10/06/17 09:12 Baso # (Auto) 0.1 X10^3/uL (0.0-0.1) 10/06/17 09:12 Absolute Nucleated RBC 0.0 /100WBC 10/06/17 09:12 Plt Morphology Comment Normal (NORMAL) 10/06/17 09:12 RBC Morphology Abnormal (NORMAL) A 10/06/17 09:12 Hypochromasia Slight A 10/06/17 09:12 Sodium 140 mmol/L (136-145) 10/06/17 09:12 Corrected Sodium 141 mmol/L (136-145) 10/06/17 09:12 Potassium 3.7 mmol/L (3.5-5.1) 10/06/17 09:12 Chloride 102 mmol/L (98-107) 10/06/17 09:12 Carbon Dioxide 27.0 mmol/L (21-32) 10/06/17 09:12 BUN 17 mg/dL (7-18) 10/06/17 09:12 Creatinine 1.01 mg/dL (0.55-1.02) 10/06/17 09:12 Est GFR (MDRD) Af Amer > 60 (>60) 10/06/17 09:12 Est GFR (MDRD) Non-Af 59 (>60) 10/06/17 09:12 Glucose 131 mg/dL (65-99) H 10/06/17 09:12 POC Glucose (mg/dL) 115 mg/dL (65-99) H 10/06/17 19:24 Calcium 9.1 mg/dL (8.5-10.1) 10/06/17 09:12 Corrected Calcium TNP 10/06/17 09:12 Total Bilirubin 0.10 mg/dL (0.2-1.0) L 10/06/17 09:12 AST 19 Units/L (15-37) 10/06/17 09:12 ALT 20 Units/L (12-78) 10/06/17 09:12 Alkaline Phosphatase 47 Units/L (46-116) 10/06/17 09:12 Creatine Kinase 66 Units/L (26-192) 10/06/17 22:44 CK-MB (CK-2) < 1.0 ng/mL (0-4.0) 10/06/17 22:44 CK/CKMB % Calc 1.5 % (<4) 10/06/17 22:44 Troponin I < 0.02 ng/mL (0-1.5) 10/06/17 22:44 Total Protein 8.0 g/dL (6.4-8.2) 10/06/17 09:12 Albumin 3.9 g/dL (3.4-5.0) 10/06/17 09:12 Globulin 4.1 g/dL (2.5-4.5) 10/06/17 09:12 Albumin/Globulin Ratio 1.0 Ratio (1.1-2.1) L 10/06/17 09:12 - Diagnosis Discharge Problem: Dizziness, Tachycardia Mastoiditis Qualifiers: Laterality: right Qualified Code(s): H70.91 - Unspecified mastoiditis, right ear - Discharge Plan Disposition: 09 ADMITTED INPATIENT Condition: Stable - Follow ups/Referrals - Instructions
[2017-10-06] MEDS ORDERED: BETAPACE AF PO ONE (09:09)
[2017-10-06 09:31] LABS: BASOPHILS # (AUTO) 0.1 X10^3/uL (0.0-0.1); BASOPHILS % (AUTO) 1.5 % (0.2-1.0); EOSINOPHILS # (AUTO) 0.1 x10^3/uL (0.0-0.2); EOSINOPHILS % (AUTO) 2.7 % (0.9-2.9); HEMATOCRIT 29.3 % (36.0-47.0); HEMOGLOBIN 9.7 g/dL (12.0-16.0); LYMPHOCYTES % (AUTO) 42.8 % (21.0-51.0); MEAN CORPUSCULAR HEMOGLOBIN 24.1 pg (27.0-34.0); MEAN CORPUSCULAR HGB CONC 33.1 g/dL (33.0-35.0); MEAN CORPUSCULAR VOLUME 72.6 fL (80.0-100.0); MEAN PLATELET VOLUME 7.1 fL (7.4-11.0); MONOCYTES # (AUTO) 0.6 x10^3/uL (0.3-0.8); MONOCYTES % (AUTO) 12.3 % (0.0-13.0); NEUTROPHILS # (AUTO) 1.9 x10^3/uL (2.2-4.8); NEUTROPHILS % (AUTO) 40.7 % (42.0-75.0); PLATELET COUNT 335 X10^3/uL (150.0-450.0); RED BLOOD COUNT 4.04 X10^6/uL (3.5-5.4); RED CELL DISTRIBUTION WIDTH 15.1 % (11.6-16.5); WHITE BLOOD COUNT 4.7 X10^3/uL (3.6-10.0)
[2017-10-06 09:51] LABS: HYPOCHROMASIA SLIGHT; PLATELET MORPHOLOGY COMMENT NORMAL (NORMAL)
[2017-10-06 09:53] LABS: BLOOD UREA NITROGEN 17 mg/dL (7-18); CALCIUM 9.1 mg/dL (8.5-10.1); CHLORIDE 102 mmol/L (98-107); COR NA(FOR HYPERGLY) 141 mmol/L (136-145); CREATININE 1.01 mg/dL (0.55-1.02); SODIUM 140 mmol/L (136-145); TROPONIN I < 0.02 ng/mL (0-1.5); eGFR BLACK RACES > 60 (>60); eGFR NON BLACK RACES 59 (>60)
[2017-10-06 09:58] LABS: ALANINE AMINOTRANSFERASE 20 Units/L (12-78); ALBUMIN 3.9 g/dL (3.4-5.0); ALKALINE PHOSPHATASE 47 Units/L (46-116); ASPARTATE AMINO TRANSFERASE 19 Units/L (15-37); CKMB % 1.1 % (<4); CREATINE KINASE 89 Units/L (26-192)
[2017-10-06] MEDS ORDERED: CARDIZEM TAB 30 MG PLAIN PO ONE (10:23)
--- NOTE | 2017-10-06 11:15 | CT ---
HISTORY: Dizziness Study: CT brain without contrast Comparison: February 18, 2017 Technique: Multiple axial images of the brain were obtained from the skull base to the vertex without administra tion of IV contrast. Findings: No acute intraparenchymal hemorrhage or mass can be identified. No extra-axial fluid collections are seen. No alteration in the attenuation of the brain parenchyma can be identified to suggest acute o r subacute ischemic change. The ventricles, sulci, and cisterns demonstrate an appearance consistent with a mild degree of generalized atrophy. Patchy areas of decreased attenuation within the periven tricular, subcortical, and subinsular white matter suggest changes of chronic small vessel ischemic d isease. Images demonstrate partial opacification of the right mastoid air cells which was also demons trated on prior exam suggesting chronic disease. If symptoms or clinical concern persist recommend co ntinued follow-up for further evaluation. IMPRESSION: No acute intracranial process can be identified. Mild generalized atrophy findings consistent with changes of chronic small vessel ischemic disease. 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 Reported By:
[2017-10-06] MEDS ORDERED: FIORICET TAB PO ONE ×2 (11:55→11:56)
[2017-10-06] MEDS: NS 1000 ML 1,000 ML IV SCH (14:05)
[2017-10-06] MEDS: ZITHROMAX INJ 500 MG VIAL 500 MG in NS 250 ML IV 250 ML IV SCH (14:05)
[2017-10-06 14:55] VITALS: BMI 23.7
[2017-10-06 18:13] LABS: CKMB % 1.5 % (<4); CREATINE KINASE 68 Units/L (26-192); CREATINE KINASE MB < 1.0 ng/mL (0-4.0); TROPONIN I < 0.02 ng/mL (0-1.5)
[2017-10-06] MEDS: BETAPACE AF PO SCH (20:23)
[2017-10-06] MEDS ORDERED: NORCO 5/325 MG TAB PO PRN (20:26)
[2017-10-06] MEDS ORDERED: REQUIP PO SCH (21:00)
[2017-10-06] MEDS ORDERED: LASIX PO PRN (21:00)
[2017-10-06] MEDS ORDERED: ZOCOR TAB 20 MG PO SCH (21:00)
[2017-10-06] MEDS ORDERED: KLONOPIN TAB 1 MG PO SCH (21:00)
[2017-10-06] MEDS ORDERED: NORCO 10/325 TAB PO PRN (21:00)
[2017-10-06] MEDS ORDERED: XANAX PO PRN (21:00)
[2017-10-06] MEDS ORDERED: GLUCOPHAGE ONE (21:18)
[2017-10-06] MEDS: APRESOLINE TAB 25 MG PO SCH (21:21)
[2017-10-06] MEDS: GLUCOPHAGE PO SCH (21:21)
[2017-10-06] MEDS: CATAPRES TAB 0.1 MG PO SCH (21:21)
[2017-10-06 23:50] LABS: CKMB % 1.5 % (<4); CREATINE KINASE 66 Units/L (26-192); CREATINE KINASE MB < 1.0 ng/mL (0-4.0); TROPONIN I < 0.02 ng/mL (0-1.5)
[2017-10-07] MEDS: NS 1000 ML 1,000 ML IV SCH ×2 (03:00→07:57)
[2017-10-07] MEDS: APRESOLINE TAB 25 MG PO SCH (05:44)
[2017-10-07] MEDS: CATAPRES TAB 0.1 MG PO SCH (05:44)
[2017-10-07] MEDS ORDERED: GLUCOTROL XL PO SCH (07:00)
[2017-10-07 07:18] LABS: ALANINE AMINOTRANSFERASE 19 Units/L (12-78); ALBUMIN 3.2 g/dL (3.4-5.0); ALKALINE PHOSPHATASE 36 Units/L (46-116); ASPARTATE AMINO TRANSFERASE 16 Units/L (15-37); BLOOD UREA NITROGEN 16 mg/dL (7-18); CALCIUM 8.2 mg/dL (8.5-10.1); CARBON DIOXIDE 25.1 mmol/L (21-32); CHLORIDE 105 mmol/L (98-107); COR CA(FOR HYPOALB) 8.8 mg/dL (8.5-10.1); COR NA(FOR HYPERGLY) 142 mmol/L (136-145); CREATININE 0.83 mg/dL (0.55-1.02); MAGNESIUM 1.5 mg/dL (1.7-2.9); SODIUM 141 mmol/L (136-145); TOTAL PROTEIN 6.6 g/dL (6.4-8.2); eGFR BLACK RACES > 60 (>60); eGFR NON BLACK RACES > 60 (>60)
[2017-10-07 07:33] LABS: BASOPHILS # (AUTO) 0.1 X10^3/uL (0.0-0.1); BASOPHILS % (AUTO) 1.5 % (0.2-1.0); EOSINOPHILS # (AUTO) 0.1 x10^3/uL (0.0-0.2); EOSINOPHILS % (AUTO) 2.8 % (0.9-2.9); HEMATOCRIT 29.2 % (36.0-47.0); HEMOGLOBIN 9.7 g/dL (12.0-16.0); LYMPHOCYTES # (AUTO) 1.9 X10^3/uL (1.3-2.9); LYMPHOCYTES % (AUTO) 42.5 % (21.0-51.0); MEAN CORPUSCULAR HEMOGLOBIN 24.4 pg (27.0-34.0); MEAN CORPUSCULAR HGB CONC 33.4 g/dL (33.0-35.0); MEAN PLATELET VOLUME 7.2 fL (7.4-11.0); MONOCYTES # (AUTO) 0.5 x10^3/uL (0.3-0.8); MONOCYTES % (AUTO) 10.3 % (0.0-13.0); NEUTROPHILS # (AUTO) 1.9 x10^3/uL (2.2-4.8); NEUTROPHILS % (AUTO) 42.9 % (42.0-75.0); PLATELET COUNT 343 X10^3/uL (150.0-450.0); RED CELL DISTRIBUTION WIDTH 15.2 % (11.6-16.5); WHITE BLOOD COUNT 4.4 X10^3/uL (3.6-10.0)
[2017-10-07] MEDS ORDERED: GLUCOPHAGE ONE (07:38)
[2017-10-07] MEDS: BETAPACE AF PO SCH (08:00)
[2017-10-07] MEDS: ZITHROMAX INJ 500 MG VIAL 500 MG in NS 250 ML IV 250 ML IV SCH (08:00)
[2017-10-07] MEDS: GLUCOPHAGE PO SCH (08:01)
[2017-10-07 08:04] VITALS: BP 173/81
[2017-10-07 08:12] LABS: PLATELET MORPHOLOGY COMMENT NORMAL (NORMAL)
[2017-10-07] MEDS ORDERED: CLARITIN PO SCH (09:00)
[2017-10-07] MEDS ORDERED: PATIENT'S HOME MEDICATION (Potassium Chloride [K-Tab Er] 1 TAB) PO SCH (09:00)
[2017-10-07] MEDS ORDERED: GLIPIZIDE PO SCH (09:00)
[2017-10-07] MEDS ORDERED: ASPIRIN PO SCH (09:00)
[2017-10-07] MEDS ORDERED: MICRO K EXTEN CAP 10 MEQ PO SCH (09:00)
[2017-10-07] MEDS ORDERED: HYDROCHLOROTHIAZIDE 25 MG TAB PO SCH (09:00)
== END 2017-10-07 11:45 | disposition home or self-care (01) ==
LOC: ER 08:58 → MED/SURG 12:54
PROVIDERS: ADMIT Internal Medicine; ATTEND Internal Medicine
DX: R00.0 Tachycardia, unspecified (principal); R42 Dizziness and giddiness; H70.91 Unspecified mastoiditis, right ear; G31.9 Degenerative disease of nervous system, unspecified; R94.31 Abnormal electrocardiogram [ECG] [EKG]
CPT/HCPCS: 36415; 70450; 80053; 82550; 82553; 83735; 84484; 85025; 93005; 93010; 94760; 96365; 96374; 99284; A4222; G0378; J0456